=== PATIENT | female | born 1950 | race Caucasian/White ===

== ENCOUNTER 2016-10-08 11:34 | Inpatient (IN) | payer MEDICARE, OTHER ==
[2016-10-08] MEDS ORDERED: SODIUM CHLORIDE 0.9% 1,000 ML IV STA (12:10)
[2016-10-08] MEDS ORDERED: IPRATROPIUM-ALBUTEROL 3 ML NEB INHALATION STA ×2 (12:10→14:02)
--- NOTE | 2016-10-08 12:19 | ED ---
SOB HPI - General Chief Complaint: Shortness of Breath Stated Complaint: Diff breathing Time Seen by Provider: 10/08/16 11:56 Source: patient, RN notes reviewed Mode of arrival: ambulatory Limitations: no limitations - History of Present Illness Initial Comments: Patient is a 66-year-old female since emergency room for evaluation of shortness of breath. Patient states she has history of COPD. Patient does state she smokes daily. Patient states she thought she caught a "cold" about a week ago. Patient states she does have a loose cough but is unable to cough anything up. Patient states that she is having increasing shortness of breath. Patient states she is normally on 3 L of nasal cannula 24 hours a day. Patient states she's been using her nebulizers with slight relief of symptoms. Patient states she still feeling short of breath. Patient states that she's having pressure in side of her chest. Patient denies chest pain. Patient denies any fevers. Patient denies nausea or vomiting. Patient states feels dizzy but denies headache. - Related Data Home Medications Medication Instructions Recorded Confirmed ALPRAZolam [Xanax] 0.25 mg PO BID 10/08/16 10/08/16 Albuterol Inhaler [Ventolin Hfa 2 puff INHALATION RT-Q4H 10/08/16 10/08/16 Inhaler] Albuterol Nebulized [Ventolin 2.5 mg INHALATION RT-QID 10/08/16 10/08/16 Nebulized] Budesonide/Formoterol Fumarate 2 puff INHALATION RT-BID 10/08/16 10/08/16 [Symbicort 160-4.5 Mcg Inhaler] Ipratropium Nebulized [Atrovent 0.5 mg INHALATION RT-QID 10/08/16 10/08/16 Nebulized] Levothyroxine Sodium [Synthroid] 50 mcg PO DAILY 10/08/16 10/08/16 Meloxicam [Mobic] 7.5 mg PO DAILY PRN 10/08/16 10/08/16 cloNIDine HCL [Catapres] 0.1 mg PO BID 10/08/16 10/08/16 predniSONE 2.5 mg PO DAILY 10/08/16 10/08/16 Allergies Allergy/AdvReac Type Severity Reaction Status Date / Time codeine AdvReac Severe Dizziness Verified 10/08/16 12:16 Review of Systems ROS Statement: Those systems with pertinent positive or pertinent negative responses have been documented in the HPI. ROS Other: All systems not noted in ROS Statement are negative. Past Medical History Past Medical History: COPD, Hyperlipidemia, Hypertension, Thyroid Disorder Additional Past Medical History / Comment(s): arthritis History of Any Multi-Drug Resistant Organisms: None Reported Past Surgical History: Adenoidectomy, Cholecystectomy, Tonsillectomy, Tubal Ligation Past Psychological History: Anxiety Smoking Status: Current every day smoker Past Alcohol Use History: Occasional Past Drug Use History: None Reported General Exam Limitations: no limitations General appearance: alert Head exam: Present: atraumatic, normocephalic, normal inspection Eye exam: Present: normal appearance ENT exam: Present: normal exam Neck exam: Present: normal inspection Respiratory exam: Present: wheezes, accessory muscle use, decreased breath sounds Cardiovascular Exam: Present: regular rate, normal rhythm, normal heart sounds GI/Abdominal exam: Present: soft, normal bowel sounds. Absent: distended, tenderness, guarding, rebound, rigid Extremities exam: Present: normal inspection Back exam: Present: normal inspection Neurological exam: Present: alert, oriented X3, CN II-XII intact Psychiatric exam: Present: normal affect, normal mood Skin exam: Present: warm, dry, intact, normal color. Absent: rash Course Vital Signs 10/08/16 10/08/16 10/08/16 11:45 12:04 12:07 Temperature 97.9 F Pulse Rate 100 98 Pulse Rate [ 96 Pool Finisher ] Respiratory 22 20 20 Rate Blood Pressure 174/89 205/119 O2 Sat by Pulse 96 99 Oximetry 10/08/16 10/08/16 10/08/16 12:19 12:26 12:45 Temperature Pulse Rate 100 104 H 92 Pulse Rate [ Pool Finisher ] Respiratory 18 Rate Blood Pressure 194/102 O2 Sat by Pulse 98 Oximetry 10/08/16 10/08/16 10/08/16 12:53 12:59 14:31 Temperature Pulse Rate 94 79 83 Pulse Rate [ Pool Finisher ] Respiratory 20 18 18 Rate Blood Pressure 206/98 181/98 201/102 O2 Sat by Pulse 98 95 98 Oximetry 10/08/16 10/08/16 14:42 15:06 Temperature Pulse Rate 92 79 Pulse Rate [ Pool Finisher ] Respiratory 18 Rate Blood Pressure 193/97 O2 Sat by Pulse 98 Oximetry Medical Decision Making - Medical Decision Making Patient is a 66-year-old female presents to the emergency room for evaluation of shortness of breath. Patient has a history of COPD. Patient is still wheezing after 2 DuoNeb treatments and Solu-Medrol. Patient started on IV antibiotics. Patient's blood pressures also uncontrolled. Patient was given 20 mg of labetalol so far. Patient's blood pressure will lower and then increase again. Will admit patient for IV antibiotics and blood pressure stabilization. Case discussed with Dr. Sanford who discussed case with Dr. Ybarra who agreed to admit patient. - Lab Data Result diagrams: 10/08/16 12:05 10/08/16 12:05 Lab Results 10/08/16 10/08/16 10/08/16 Range/Units 12:05 12:05 12:05 WBC 10.2 (3.8-10.6) k/uL RBC 4.59 (3.80-5.40) m/uL Hgb 14.1 (11.4-16.0) gm/dL Hct 44.3 (34.0-46.0) % MCV 96.6 (80.0-100.0) fL MCH 30.8 (25.0-35.0) pg MCHC 31.9 (31.0-37.0) g/dL RDW 12.9 (11.5-15.5) % Plt Count 293 (150-450) k/uL Neutrophils % 78 % Lymphocytes % 10 % Monocytes % 7 % Eosinophils % 3 % Basophils % 1 % Neutrophils # 8.0 H (1.3-7.7) k/uL Lymphocytes # 1.0 (1.0-4.8) k/uL Monocytes # 0.7 (0-1.0) k/uL Eosinophils # 0.3 (0-0.7) k/uL Basophils # 0.1 (0-0.2) k/uL PT (9.0-12.0) sec INR (<1.1) APTT (22.0-30.0) sec D-Dimer (<0.60) mg/L FEU Sodium 134 L (137-145) mmol/L Potassium 4.4 (3.5-5.1) mmol/L Chloride 98 (98-107) mmol/L Carbon Dioxide 23 (22-30) mmol/L Anion Gap 13 mmol/L BUN 5 L (7-17) mg/dL Creatinine 0.60 (0.52-1.04) mg/dL Est GFR (MDRD) Af Amer >60 (>60 ml/min/1.73 sqM) Est GFR (MDRD) Non-Af >60 (>60 ml/min/1.73 sqM) Glucose 119 H (74-99) mg/dL Calcium 9.6 (8.4-10.2) mg/dL Total Bilirubin 0.7 (0.2-1.3) mg/dL AST 22 (14-36) U/L ALT 30 (9-52) U/L Alkaline Phosphatase 113 (38-126) U/L Total Creatine Kinase 32 (30-135) U/L CK-MB (CK-2) 2.8 H* (0.0-2.4) ng/mL CK-MB (CK-2) Rel Index 8.8 Troponin I <0.012 (0.000-0.034) ng/mL NT-Pro-B Natriuret Pep pg/mL Total Protein 7.7 (6.3-8.2) g/dL Albumin 4.3 (3.5-5.0) g/dL Influenza Type A RNA (Not Detectd) Influenza Type B (PCR) (Not Detectd) 10/08/16 10/08/16 10/08/16 Range/Units 12:05 12:05 12:31 WBC (3.8-10.6) k/uL RBC (3.80-5.40) m/uL Hgb (11.4-16.0) gm/dL Hct (34.0-46.0) % MCV (80.0-100.0) fL MCH (25.0-35.0) pg MCHC (31.0-37.0) g/dL RDW (11.5-15.5) % Plt Count (150-450) k/uL Neutrophils % % Lymphocytes % % Monocytes % % Eosinophils % % Basophils % % Neutrophils # (1.3-7.7) k/uL Lymphocytes # (1.0-4.8) k/uL Monocytes # (0-1.0) k/uL Eosinophils # (0-0.7) k/uL Basophils # (0-0.2) k/uL PT 10.0 (9.0-12.0) sec INR 1.0 (<1.1) APTT 24.0 (22.0-30.0) sec D-Dimer 0.47 (<0.60) mg/L FEU Sodium (137-145) mmol/L Potassium (3.5-5.1) mmol/L Chloride (98-107) mmol/L Carbon Dioxide (22-30) mmol/L Anion Gap mmol/L BUN (7-17) mg/dL Creatinine (0.52-1.04) mg/dL Est GFR (MDRD) Af Amer (>60 ml/min/1.73 sqM) Est GFR (MDRD) Non-Af (>60 ml/min/1.73 sqM) Glucose (74-99) mg/dL Calcium (8.4-10.2) mg/dL Total Bilirubin (0.2-1.3) mg/dL AST (14-36) U/L ALT (9-52) U/L Alkaline Phosphatase (38-126) U/L Total Creatine Kinase (30-135) U/L CK-MB (CK-2) (0.0-2.4) ng/mL CK-MB (CK-2) Rel Index Troponin I (0.000-0.034) ng/mL NT-Pro-B Natriuret Pep 198 pg/mL Total Protein (6.3-8.2) g/dL Albumin (3.5-5.0) g/dL Influenza Type A RNA Not Detected (Not Detectd) Influenza Type B (PCR) Not Detected (Not Detectd) 10/08/16 12:20 EKG: Normal sinus rhythm, ventricular rate 93 bpm, MD interval 140 ms, QRS duration 74 ms, QT/QTC 352/437 ms, no ST elevations - Radiology Data Radiology results: report reviewed, image reviewed Disposition Clinical Impression: COPD exacerbation, Hypertension Disposition: ADMITTED IP TO THIS [facility] Condition: Stable Decision Date: 10/08/16
[2016-10-08 12:40] LABS: Basophils # (A) 0.1 k/uL (0-0.2); Basophils % (A) 1 %; CHCM 33.2; Eosinophils # (A) 0.3 k/uL (0-0.7); Eosinophils % (A) 3 %; HCT 44.3 % (34.0-46.0); HDW 2.51; HGB 14.1 gm/dL (11.4-16.0); Luc # (Auto) 0.15; Luc % (Auto) 2; Lymphocytes % (A) 10 %; MCH 30.8 pg (25.0-35.0); MCHC 31.9 g/dL (31.0-37.0); MCV 96.6 fL (80.0-100.0); Mean Platelet Volume 8.2; Monocytes # (A) 0.7 k/uL (0-1.0); Monocytes % (A) 7 %; Neutrophils % (A) 78 %; RBC 4.59 m/uL (3.80-5.40); RDW 12.9 % (11.5-15.5); WBC 10.2 k/uL (3.8-10.6); WBC (Perox) 9.99
[2016-10-08 12:47] LABS: ALT 30 U/L (9-52); AST 22 U/L (14-36); Alkaline Phosphatase 113 U/L (38-126); Anion Gap 13 mmol/L; Blood Urea Nitrogen 5 mg/dL (7-17); Calcium 9.6 mg/dL (8.4-10.2); Carbon Dioxide 23 mmol/L (22-30); Chloride 98 mmol/L (98-107); Glucose 119 mg/dL (74-99); Non-African American GFR(MDRD) >60 (>60 ml/min/1.73 sqM); Potassium 4.4 mmol/L (3.5-5.1); Sodium 134 mmol/L (137-145); Total Bilirubin 0.7 mg/dL (0.2-1.3); Total Protein 7.7 g/dL (6.3-8.2)
[2016-10-08] MEDS ORDERED: LABETALOL SYRINGE 5 MG/ML IVP STA ×2 (12:49→14:33)
[2016-10-08 13:11] LABS: Creatine Kinase 32 U/L (30-135)
[2016-10-08 13:24] LABS: Troponin I <0.012 ng/mL (0.000-0.034)
[2016-10-08 13:37] LABS: Creatine Kinase MB 2.8 ng/mL (0.0-2.4)
[2016-10-08] MEDS ORDERED: LEVOFLOXACIN 500MG-D5W PMX 500 MG in DEXTROSE/WATER 1 100ML.BAG IVPB STA (14:02)
[2016-10-08] MEDS ORDERED: methylPREDNISolone SOD SUCCI 125 MG/2 ML VIAL IV STA (14:02)
[2016-10-08] MEDS ORDERED: NICOTINE 21MG/24HR PATCH TRANSDERM STA (15:11)
[2016-10-08] MEDS ORDERED: IBUPROFEN 400 MG TAB PO PRN (15:15)
[2016-10-08] MEDS ORDERED: NALOXONE 0.4 MG/ML 1 ML VIAL IV PRN (15:15)
[2016-10-08] MEDS ORDERED: MELOXICAM 7.5 MG TAB PO PRN (15:20)
[2016-10-08] MEDS: SODIUM CHLORIDE 0.9% 1,000 ML IV SCH (15:40)
[2016-10-08] MEDS ORDERED: ALBUTEROL INHALER 60 PUFF/8 GM INHALER INHALATION SCH (16:00)
[2016-10-08] MEDS ORDERED: IPRATROPIUM 0.5 MG/2.5 ML NEBU INHALATION SCH (16:00)
[2016-10-08] MEDS: ALPRAZolam 0.25 MG TAB PO SCH (17:24)
[2016-10-08] MEDS: IPRATROPIUM-ALBUTEROL 3 ML NEB INHALATION SCH ×2 (17:43→21:28)
[2016-10-08] MEDS: cloNIDine HCL 0.1 MG TAB PO SCH (17:48)
[2016-10-08 20:28] LABS: Glucose,Whole Blood 141 mg/dL (75-99)
[2016-10-08] MEDS: SYMBICORT 160-4.5 MCG INHALER INHALATION SCH (21:28)
[2016-10-08 23:27] LABS: Glucose,Whole Blood 220 mg/dL (75-99)
[2016-10-09] MEDS: INSULIN LISPRO (humaLOG) 300 UNIT/3 ML VIAL SQ SCH ×5 (00:13→21:02)
[2016-10-09 05:59] LABS: Glucose,Whole Blood 135 mg/dL (75-99)
[2016-10-09] MEDS: LEVOTHYROXINE 50 MCG TAB PO SCH (06:22)
[2016-10-09 06:37] LABS: Basophils # (A) 0.1 k/uL (0-0.2); Basophils % (A) 2 %; CH 31.6; CHCM 32.6; Eosinophils % (A) 0 %; HCT 41.3 % (34.0-46.0); HDW 2.49; HGB 13.5 gm/dL (11.4-16.0); Luc # (Auto) 0.06; Luc % (Auto) 1; Lymphocytes # (A) 0.5 k/uL (1.0-4.8); Lymphocytes % (A) 8 %; MCH 31.8 pg (25.0-35.0); MCHC 32.8 g/dL (31.0-37.0); MCV 97.2 fL (80.0-100.0); Monocytes # (A) 0.2 k/uL (0-1.0); Monocytes % (A) 4 %; Neutrophils % (A) 85 %; RBC 4.25 m/uL (3.80-5.40); RDW 12.8 % (11.5-15.5); WBC 5.9 k/uL (3.8-10.6); WBC (Perox) 5.92
[2016-10-09 06:50] LABS: ALT 32 U/L (9-52); AST 16 U/L (14-36); Alkaline Phosphatase 92 U/L (38-126); Anion Gap 10 mmol/L; Blood Urea Nitrogen 8 mg/dL (7-17); Calcium 9.6 mg/dL (8.4-10.2); Carbon Dioxide 24 mmol/L (22-30); Chloride 102 mmol/L (98-107); Glucose 138 mg/dL (74-99); Non-African American GFR(MDRD) >60 (>60 ml/min/1.73 sqM); Potassium 4.5 mmol/L (3.5-5.1); Sodium 136 mmol/L (137-145); Total Bilirubin 0.4 mg/dL (0.2-1.3)
[2016-10-09] MEDS: cloNIDine HCL 0.1 MG TAB PO SCH (07:48)
[2016-10-09] MEDS: SODIUM CHLORIDE 0.9% 1,000 ML IV SCH (07:48)
[2016-10-09] MEDS: ALPRAZolam 0.25 MG TAB PO SCH ×2 (07:53→19:59)
[2016-10-09] MEDS ORDERED: methylPREDNISolone SOD SUCCI 125 MG/2 ML VIAL IV SCH (09:00)
[2016-10-09] MEDS: IPRATROPIUM-ALBUTEROL 3 ML NEB INHALATION SCH ×4 (09:03→19:07)
[2016-10-09] MEDS: SYMBICORT 160-4.5 MCG INHALER INHALATION SCH ×2 (09:03→19:07)
[2016-10-09 11:58] LABS: Glucose,Whole Blood 127 mg/dL (75-99)
--- NOTE | 2016-10-09 12:34 | XR ---
EXAMINATION TYPE: XR chest 2V DATE OF EXAM: 10/09/2016 12:27 PM COMPARISON: 05/26/2016, 10/08/2016 INDICATION: Pneumonia bilateral lung infection low blood pressure history of COPD TECHNIQUE: Frontal and lateral views of the chest are obtained. FINDINGS: The heart size is normal. The pulmonary vasculature is normal. There is some chronic scarring in the right apex. Flattening of the diaphragms compatible COPD. IMPRESSION: 1. Scarring at the right apex. This could be some mild atelectasis. 2. COPD with hyperinflation
--- NOTE | 2016-10-09 13:46 | P.CNPUL ---
History of Present Illness Consult date: 10/09/16 Requesting physician: Fan Rajput Reason for consult: COPD Chief complaint: Shortness of breath History of present illness: This is a 66-year-old female with history of severe end-stage COPD, patient is O2 dependent, but not prednisone dependent. Continues to smoke on the average of one pack per day, admitted through the emergency room with a few days' history of increased shortness of breath cough and wheezing. Patient stated to me that she may have caught a cold about a week ago, and from then on she went on to develop this nonproductive cough, shortness of breath, wheezing. No chest pain no fever no chills no hemoptysis. Patient was evaluated in the ER, chest x-ray showed no evidence of pneumonia, admitted and this consult was initiated. Patient denies any vomiting no nausea, no abdominal pain, no chest pain, no hemoptysis, no melena no hematemesis. No dysuria frequency or urgency. No headaches no dizziness no blurred vision. Review of Systems 14 point review of systems were obtained, please refer to pertinent positives and negatives in HPI Past Medical History Past Medical History: COPD, Hyperlipidemia, Hypertension, Thyroid Disorder Additional Past Medical History / Comment(s): arthritis History of Any Multi-Drug Resistant Organisms: None Reported Past Surgical History: Adenoidectomy, Cholecystectomy, Tonsillectomy, Tubal Ligation Past Psychological History: Anxiety Smoking Status: Current every day smoker Past Alcohol Use History: Occasional Past Drug Use History: None Reported Medications and Allergies Home Medications Medication Instructions Recorded Confirmed Type ALPRAZolam [Xanax] 0.25 mg PO BID 10/08/16 10/08/16 History Albuterol Inhaler [Ventolin Hfa 2 puff INHALATION RT-Q4H 10/08/16 10/08/16 History Inhaler] Albuterol Nebulized [Ventolin 2.5 mg INHALATION RT-QID 10/08/16 10/08/16 History Nebulized] Budesonide/Formoterol Fumarate 2 puff INHALATION RT-BID 10/08/16 10/08/16 History [Symbicort 160-4.5 Mcg Inhaler] Ipratropium Nebulized [Atrovent 0.5 mg INHALATION RT-QID 10/08/16 10/08/16 History Nebulized] Levothyroxine Sodium [Synthroid] 50 mcg PO DAILY 10/08/16 10/08/16 History Meloxicam [Mobic] 7.5 mg PO DAILY PRN 10/08/16 10/08/16 History cloNIDine HCL [Catapres] 0.1 mg PO BID 10/08/16 10/08/16 History predniSONE 2.5 mg PO DAILY 10/08/16 10/08/16 History Allergies Allergy/AdvReac Type Severity Reaction Status Date / Time codeine AdvReac Severe Dizziness Verified 10/08/16 12:16 Physical Exam Vitals: Vital Signs Temp Pulse Pulse Pulse Resp BP BP 10/09/16 13:20 83 10/09/16 11:14 97.0 F L 93 18 156/88 10/09/16 09:15 87 10/09/16 09:03 80 10/09/16 07:50 97.1 F L 90 18 189/84 10/09/16 04:00 97.2 F L 81 20 167/75 10/09/16 00:00 97.3 F L 84 20 161/72 10/08/16 21:32 80 10/08/16 21:21 80 10/08/16 20:00 97 F L 96 96 20 144/66 10/08/16 19:04 94 20 10/08/16 17:36 110 H 23 10/08/16 16:32 96.4 F L 94 22 10/08/16 15:53 89 18 183/89 BP Pulse Ox 10/09/16 13:20 10/09/16 11:14 96 10/09/16 09:15 10/09/16 09:03 10/09/16 07:50 95 10/09/16 04:00 94 L 10/09/16 00:00 95 10/08/16 21:32 10/08/16 21:21 10/08/16 20:00 94 L 10/08/16 19:04 133/63 96 10/08/16 17:36 193/88 94 L 10/08/16 16:32 210/100 94 L 10/08/16 15:53 97 Intake and Output 10/08/16 10/09/16 10/09/16 22:59 06:59 14:59 Intake Total 100 900 180 Output Total 821 915 7433 Balance -600 -50 -820 Intake: Intake, IV Titration 900 Amount Sodium Chloride 0.9% 1, 900 000 ml @ 50 mls/hr IV . Q20H [facility] Rx#:[id number] Oral 100 180 Output: Urine [phone] Other: Voiding Method Bedside Commode Bedside Commode Bedside Commode # Voids 1 1 Weight 52.617 kg 53.2 kg Physical Exam: Revealed a 66-year-old female in mild respiratory distress. HEENT:[Neck is supple.] [No neck masses.] [No thyromegaly.] [No JVD.] Chest: [Diffuse rhonchi and wheezes bilaterally.] Cardiac Exam: [Normal S1 and S2, no S3 gallop, no murmur.] Abdomen: [Soft, nontender, no megaly, no rebound, no guarding, normal bowel sounds.] Extremities: [No clubbing, no edema, no cyanosis.] Neurological Exam: [No focal neurologic deficit.] Results - Laboratory Findings CBC and BMP: 10/09/16 05:42 10/09/16 05:40 PT/INR, D-dimer PT 10.0 sec (9.0-12.0) 10/08/16 12:05 INR 1.0 (<1.1) 10/08/16 12:05 D-Dimer 0.47 mg/L FEU (<0.60) 10/08/16 12:05 Abnormal lab findings: Abnormal Labs 10/08/16 10/08/16 10/09/16 20:26 23:20 05:40 Lymphocytes # Sodium 136 L Glucose 138 H POC Glucose (mg/dL) 141 H 220 H 10/09/16 10/09/16 10/09/16 05:42 05:42 11:50 Lymphocytes # 0.5 L Sodium Glucose POC Glucose (mg/dL) 135 H 127 H - Diagnostic Findings Chest x-ray: image reviewed (No evidence of pneumonia) Assessment and Plan Plan: Impression: 1 acute exacerbation of COPD. 2 chronic hypoxic respiratory failure secondary to COPD 3 chronic nicotine addiction and tobacco dependence syndrome. 4 multiple comorbidities including history of hyperlipidemia, hypertension, and history of hypothyroidism, history of degenerative joint disease. Recommendation: Patient was counseled regarding smoking cessation, she is current on her immunization, and reviewing the list of the medications, she seems to be on proper bronchodilators and proper antibiotics empirically. However the dose of Solu-Medrol was changed to 60 mg IV push every 6 hours instead of 80 mg daily. Continue albuterol and Atrovent updrafts, continue Pulmicort, expect discharge planning in the next 48 hours. Time with Patient: Greater than 30
[2016-10-09] MEDS: FAMOTIDINE 20 MG TAB PO SCH ×2 (13:54→19:59)
[2016-10-09] MEDS: CARVEDILOL 12.5 MG TAB PO SCH ×2 (13:54→17:56)
[2016-10-09 14:32] VITALS: BMI 22.8
[2016-10-09] MEDS ORDERED: LEVOFLOXACIN 500MG-D5W PMX 500 MG in DEXTROSE/WATER 1 100ML.BAG IVPB SCH (16:00)
--- NOTE | 2016-10-09 16:32 | HP ---
DATE OF ADMISSION: Patient is a 66-year-old with end-stage ( ) COPD, is on 3 L of oxygen at home ( ) continues to smoke 1 pack per day; came in with complaints of shortness of breath which started about a week ago; much worse in the last 2 or 3 days. Is unable to cough up anything. Patient denied any fever, chills at home. Chest x-ray apparently showed evidence of pneumonia as per ER physician ( ) I reordered the chest x-ray then because of that reason. Patient appears to have had ( ) symptoms about a week ago which precipitated her COPD. Patient appears to have advanced COPD. Patient denied any nausea, vomiting. Patient denied any hemoptysis, hematemesis, melena, dysuria. Clinically patient does not have any evidence of pneumonia. I will repeat the chest x-ray. REVIEW OF SYSTEMS: CONSTITUTIONAL: No fever, no malaise, no fatigue. HEENT: No recent visual problems or hearing problems. Denied any sore throat. CARDIOVASCULAR: No chest pain, orthopnea, PND, no palpitations, no syncope. PULMONARY: As described in HPI. Patient denied any orthopnea, PND. GASTROINTESTINAL: No diarrhea, no nausea, no vomiting, no abdominal pain. Normoactive bowel sounds. NEUROLOGICAL: No headaches, no weakness, no numbness. HEMATOLOGICAL: Denies any bleeding or petechiae. GENITOURINARY: Denies any burning micturition, frequency, or urgency. MUSCULOSKELETAL/RHEUMATOLOGICAL: Denies any joint pain, swelling, or any muscle pain. ENDOCRINE: Denies any polyuria or polydipsia. The rest of the 14 point review of systems is negative. Past medical history is significant for: 1. COPD. 2. Hyperlipidemia. 3. Hypertension. 4. Hypothyroidism. 5. Adenoidectomy. 6. Cholecystectomy. 7. Tonsillectomy. 8. Tubal ligation surgery. 9. ( ) disorder. Patient continues to smoke a pack per day. Denied any alcohol abuse or any drug abuse. Home medications include: 1. Alprazolam. 2. Albuterol. 3. Budesonide/formoterol. 4. Ipratropium. 5. Levothyroxine. 6. Meloxicam. 7. Clonidine. 8. Prednisone. ALLERGIES: CODEINE. PHYSICAL EXAMINATION: VITAL SIGNS: Temperature 97.0, pulse of 83, respiratory rate of 18. Blood pressure is 156/88. Patient appeared to have elevated blood pressures in ER. Patient is on clonidine, which is not an appropriate medication, which I am switching to Coreg, and patient can have ( ) because of that, for which we will watch her. GENERAL: Very thin built female, not in apparently respiratory distress. HEENT: Pupils are round and equally reacting to light. EOMI. No scleral icterus. No conjunctival pallor. Normocephalic, atraumatic. No pharyngeal erythema. No thyromegaly. CARDIOVASCULAR: S1 and S2 present. No murmurs, rubs, or gallops. PULMONARY: Expiratory wheezing was appreciated. Very minimal air entry into bilateral lung silva. No crackles were appreciated. ABDOMEN: Soft, nontender, nondistended, normoactive bowel sounds. No palpable organomegaly. MUSCULOSKELETAL: No joint swelling or deformity. EXTREMITIES: No cyanosis, clubbing, or pedal edema. NEUROLOGICAL: Gross neurological examination did not reveal any focal deficits. SKIN: No rashes. FAMILY HISTORY: Denied any family history of hypertension, diabetes mellitus. LABORATORY DATA: CBC, CMP: no significant abnormality. X-RAY: I cannot see the images of the x-ray. Reordered the x-ray, as mentioned above, although clinically the patient does not appear to have any pneumonia. Patient does not have any leukocytosis. ASSESSMENT AND PLAN: 1. Acute on chronic hypercapnic respiratory failure secondary to chronic obstructive pulmonary disease exacerbation. Continue with systemic steroids, inhalation treatments, antibiotics. Chest x-ray does not show any pneumonia, although I ( ) antibiotics. 2. Accelerated hypertension. Clonidine will be discontinued and patient will be started on Coreg. Patient does not have any end-organ damage. I would not worry about the blood pressures. Most of the readings are within appropriate measurements. 3. Continued nicotine abuse. Counseling was provided regarding that. 4. Hypothyroidism. 5. Hyperlipidemia, for which patient will be continued on home medications. Patient probably can be discharged tomorrow. Will monitor her vitals and blood pressures in the meantime.
[2016-10-09 17:40] LABS: Glucose,Whole Blood 135 mg/dL (75-99)
[2016-10-09] MEDS: methylPREDNISolone SOD SUCCI 125 MG/2 ML VIAL IV SCH ×2 (17:56→23:45)
[2016-10-09 20:53] LABS: Glucose,Whole Blood 150 mg/dL (75-99)
[2016-10-10] MEDS ORDERED: cloNIDine HCL 0.1 MG TAB PO STA (00:12)
[2016-10-10] MEDS: SODIUM CHLORIDE 0.9% 1,000 ML IV SCH (06:03)
[2016-10-10] MEDS: methylPREDNISolone SOD SUCCI 125 MG/2 ML VIAL IV SCH ×4 (06:03→23:26)
[2016-10-10] MEDS: LEVOTHYROXINE 50 MCG TAB PO SCH (06:27)
[2016-10-10 07:01] LABS: Glucose,Whole Blood 133 mg/dL (75-99)
[2016-10-10] MEDS: NICOTINE 21MG/24HR PATCH TRANSDERM SCH (08:09)
[2016-10-10] MEDS: CARVEDILOL 12.5 MG TAB PO SCH ×2 (08:09→18:01)
[2016-10-10] MEDS: ALPRAZolam 0.25 MG TAB PO SCH ×2 (08:09→21:48)
[2016-10-10] MEDS: INSULIN LISPRO (humaLOG) 300 UNIT/3 ML VIAL SQ SCH ×4 (08:09→21:48)
[2016-10-10] MEDS: IPRATROPIUM-ALBUTEROL 3 ML NEB INHALATION SCH ×4 (08:10→20:26)
[2016-10-10] MEDS: SYMBICORT 160-4.5 MCG INHALER INHALATION SCH ×2 (08:10→20:26)
--- NOTE | 2016-10-10 11:41 | XR ---
EXAMINATION TYPE: XR chest 2V DATE OF EXAM: 10/08/2016 12:48 PM COMPARISON: 05/26/2016 HISTORY: Short of breath and COPD TECHNIQUE: Frontal and lateral views of the chest are obtained. FINDINGS: Heart is normal. Lungs are clear of consolidation. There is linear density in the right upper lobe. There are no hilar masses. There is no heart failure. There is mild pulmonary hyperinf lation. Bony thorax appears intact. IMPRESSION: There is some right upper lobe atelectasis that is new compared to last exam. COPD. No heart failure.
[2016-10-10 12:34] LABS: Glucose,Whole Blood 122 mg/dL (75-99)
--- NOTE | 2016-10-10 13:07 | P.PN ---
Subjective This is a very pleasant 66-year-old female with history of severe end-stage COPD , patient is O2 dependent, but not prednisone dependent. Continues to smoke on the average of one pack per day, admitted through the emergency room with a few days' history of increased shortness of breath cough and wheezing. Patient stated that she may have caught a cold about a week ago, and from then on she went on to develop this nonproductive cough, shortness of breath, wheezing. No chest pain no fever no chills no hemoptysis. Patient was evaluated in the ER, chest x-ray showed no evidence of pneumonia and she's been treated for an acute exacerbation of her COPD. She is seen again today 10/10/2016 in follow-up. She is awake and alert in no acute distress. She states she is breathing easier today as compared to yesterday. No worsening shortness of breath, cough or congestion. She is anxious to go home. Objective - Vital Signs Vital signs: Vital Signs Temp 97.1 F L 10/10/16 07:00 Pulse 88 10/10/16 11:30 Resp 20 10/10/16 07:00 BP 198/91 10/10/16 07:00 Pulse Ox 91 L 10/10/16 07:00 Intake & Output 10/09/16 10/10/16 10/10/16 18:59 06:59 18:59 Intake Total 180 200 Output Total 1000 Balance -820 200 Weight 53.2 kg 53 kg Intake: Oral 180 200 Output: Urine 1000 Other: Voiding Method Bedside Commode # Voids 2 # Bowel Movements 0 - Exam GENERAL EXAM: Alert, active, comfortable in no apparent distress. HEAD: Normocephalic. EYES: Normal reaction of pupils, equal size. NOSE: Clear with pink turbinates. THROAT: No erythema or exudates. NECK: No masses, no JVD. CHEST: No chest wall deformity. LUNGS: Equal air entry with end expiratory wheeze. Diminished throughout. CVS: S1 and S2 normal with no audible murmurs, regular rhythm. ABDOMEN: No hepatosplenomegaly, normal bowel sounds, no guarding or rigidity. SPINE: No scoliosis or deformity SKIN: No rashes CENTRAL NERVOUS SYSTEM: No focal deficits, tone is normal in all 4 extremities. Extremities: There is no peripheral edema. No clubbing, no cyanosis. Peripheral pulses are intact. - Labs CBC & Chem 7: 10/09/16 05:42 10/09/16 05:40 Labs: Abnormal Lab Results - Last 24 Hours (Table) 10/09/16 10/09/16 10/10/16 Range/Units 17:37 20:51 07:00 POC Glucose (mg/dL) 135 H 150 H 133 H (75-99) mg/dL 10/10/16 Range/Units 12:33 POC Glucose (mg/dL) 122 H (75-99) mg/dL Assessment and Plan Plan: Impression: 1 Acute exacerbation of severe oxygen dependent chronic obstructive pulmonary disease. 2 Acute on chronic hypoxic respiratory failure secondary to above 3 Chronic and ongoing nicotine addiction and tobacco dependence syndrome. 4 Hyperlipidemia. 5 Hypertension. 6 Hypothyroidism. 7 Degenerative joint disease. Plan: The patient was seen and evaluated by Dr. Min. Her chest x-ray and labs were reviewed. She has been treated for her COPD exacerbation with IV Solu- Medrol, bronchodilators, Pulmicort and empiric antibiotics. She is again educated regarding the importance of complete smoking cessation. She is improved today and could possibly be discharged home either later today or tomorrow. She'll have a follow-up appointment in our office in 1 week's time. She is encouraged to call sooner with any recurrence of symptoms or other questions or concerns.
[2016-10-10] MEDS: FAMOTIDINE 20 MG TAB PO SCH ×2 (13:33→21:48)
[2016-10-10 16:43] LABS: Glucose,Whole Blood 118 mg/dL (75-99)
[2016-10-10] MEDS: LEVOFLOXACIN 500 MG TAB PO SCH (18:00)
[2016-10-10 20:45] LABS: Glucose,Whole Blood 119 mg/dL (75-99)
[2016-10-11] MEDS: SODIUM CHLORIDE 0.9% 1,000 ML IV SCH (05:55)
[2016-10-11] MEDS: methylPREDNISolone SOD SUCCI 125 MG/2 ML VIAL IV SCH (05:57)
[2016-10-11] MEDS: LEVOTHYROXINE 50 MCG TAB PO SCH (06:34)
[2016-10-11 07:41] VITALS: BP 189/98; RESP 19; TEMP 97.7
[2016-10-11 07:46] LABS: Glucose,Whole Blood 134 mg/dL (75-99)
[2016-10-11] MEDS: INSULIN LISPRO (humaLOG) 300 UNIT/3 ML VIAL SQ SCH ×2 (08:00→13:11)
[2016-10-11] MEDS: CARVEDILOL 12.5 MG TAB PO SCH (08:15)
[2016-10-11] MEDS: ALPRAZolam 0.25 MG TAB PO SCH (08:33)
[2016-10-11] MEDS: NICOTINE 21MG/24HR PATCH TRANSDERM SCH (08:33)
[2016-10-11] MEDS: FAMOTIDINE 20 MG TAB PO SCH (08:34)
[2016-10-11] MEDS: SYMBICORT 160-4.5 MCG INHALER INHALATION SCH (09:51)
[2016-10-11] MEDS: IPRATROPIUM-ALBUTEROL 3 ML NEB INHALATION SCH ×2 (09:52→12:34)
--- NOTE | 2016-10-11 11:36 | P.PN ---
Subjective This is a very pleasant 66-year-old female with history of severe end-stage COPD , patient is O2 dependent, but not prednisone dependent. Continues to smoke on the average of one pack per day, admitted through the emergency room with a few days' history of increased shortness of breath cough and wheezing. Patient stated that she may have caught a cold about a week ago, and from then on she went on to develop this nonproductive cough, shortness of breath, wheezing. No chest pain no fever no chills no hemoptysis. Patient was evaluated in the ER, chest x-ray showed no evidence of pneumonia and she's been treated for an acute exacerbation of her COPD. She is seen again today 10/11/2016 in follow-up. She is awake and alert in no acute distress. She states she slept well last night. She's been up ambulating in the room. She is maintaining O2 saturations in the mid 90s on room air at rest. She is afebrile. She states she is breathing easier today as compared to yesterday. No worsening shortness of breath, cough or congestion. She is anxious to go home. Objective - Vital Signs Vital signs: Vital Signs Temp 97.7 F 10/11/16 07:00 Pulse 86 10/11/16 07:00 Resp 19 10/11/16 07:00 BP 189/98 10/11/16 07:00 Pulse Ox 96 10/11/16 07:00 Intake & Output 10/10/16 10/11/16 10/11/16 18:59 06:59 18:59 Intake Total 400 650 Balance 400 650 Weight 53 kg Intake: IV 400 Sodium Chloride 0.9% 1, 400 000 ml @ 50 mls/hr IV . Q20H [facility] Rx#:[id number] Oral 650 Other: # Voids 2 3 - Exam GENERAL EXAM: Alert, active, comfortable in no apparent distress. HEAD: Normocephalic. EYES: Normal reaction of pupils, equal size. NOSE: Clear with pink turbinates. THROAT: No erythema or exudates. NECK: No masses, no JVD. CHEST: No chest wall deformity. LUNGS: Equal air entry with end expiratory wheeze. Diminished throughout. CVS: S1 and S2 normal with no audible murmurs, regular rhythm. ABDOMEN: No hepatosplenomegaly, normal bowel sounds, no guarding or rigidity. SPINE: No scoliosis or deformity SKIN: No rashes CENTRAL NERVOUS SYSTEM: No focal deficits, tone is normal in all 4 extremities. Extremities: There is no peripheral edema. No clubbing, no cyanosis. Peripheral pulses are intact. - Labs CBC & Chem 7: 10/09/16 05:42 10/09/16 05:40 Labs: Abnormal Lab Results - Last 24 Hours (Table) 10/10/16 10/10/16 10/10/16 Range/Units 12:33 16:42 20:42 POC Glucose (mg/dL) 122 H 118 H 119 H (75-99) mg/dL 10/11/16 Range/Units 07:14 POC Glucose (mg/dL) 134 H (75-99) mg/dL Assessment and Plan Plan: Impression: #1 Acute exacerbation of severe oxygen dependent chronic obstructive pulmonary disease. #2 Acute on chronic hypoxic respiratory failure secondary to above. #3 Chronic and ongoing nicotine addiction and tobacco dependence syndrome. #4 Hyperlipidemia. #5 Hypertension. #6 Hypothyroidism. #7 Degenerative joint disease. Plan: The patient was seen and evaluated by Dr. Min. She has been treated for her COPD exacerbation with IV Solu-Medrol, bronchodilators, Pulmicort and empiric antibiotics. We will convert her oral prednisone taper. She is again educated regarding the importance of complete smoking cessation. She is improved today and could possibly be discharged home either later today or tomorrow. She'll have a follow-up appointment in our office in 1 week's time. She is encouraged to call sooner with any recurrence of symptoms or other questions or concerns.
[2016-10-11 12:37] VITALS: PULSE 80
[2016-10-11 12:49] LABS: Glucose,Whole Blood 111 mg/dL (75-99)
[2016-10-11] MEDS: LEVOFLOXACIN 500 MG TAB PO SCH (13:12)
[2016-10-12] MEDS ORDERED: predniSONE 20 MG TAB PO SCH (09:00)
--- NOTE | 2016-10-12 09:36 | DS ---
DATE OF ADMISSION: 10/08/2016 DATE OF DISCHARGE: 10/11/2016 Patient is a 66-year-old, came in with COPD exacerbation. Patient has significant clinical improvement and patient is at her baseline. Patient still has decreased air entry into bilateral lung silva, but which is her baseline and extensive counseling regarding the nicotine us was provided and patient will be discharged today. Patient was seen and examined on the day of discharge. Vitals are stable. PHYSICAL EXAMINATION: GENERAL: The patient is alert and oriented x3, not in any acute distress. Well developed, well nourished. HEENT: Pupils are round and equally reacting to light. EOMI. No scleral icterus. No conjunctival pallor. Normocephalic, atraumatic. No pharyngeal erythema. No thyromegaly. CARDIOVASCULAR: S1 and S2 present. No murmurs, rubs, or gallops. PULMONARY: Chest is clear to auscultation, no wheezing or crackles. ABDOMEN: Soft, nontender, nondistended, normoactive bowel sounds. No palpable organomegaly. MUSCULOSKELETAL: No joint swelling or deformity. EXTREMITIES: No cyanosis, clubbing, or pedal edema. NEUROLOGICAL: Gross neurological examination did not reveal any focal deficits. SKIN: No rashes. FINAL DIAGNOSES: 1. Acute on chronic hypercapnic respiratory failure secondary to chronic obstructive pulmonary disease exacerbation. 2. Accelerated hypertension. Patient was on Klonopin, which was discontinued. Patient will be discharged on Coreg and lisinopril and continued nicotine use counseling was provided as mentioned above. 3. Hypothyroidism. 4. Tracheobronchitis. 5. Hyperlipidemia. Discharge medications include: 1. Coreg 12.5 p.o. b.i.d. 2. Levofloxacin 500 p.o. daily. 3. Lisinopril 10 mg oral daily. 4. Paroxetine 10 mg orally daily. 5. Weaning dose of prednisone. Patient will continue her Budesonide, formoterol, albuterol inhalational, Xanax as needed, levothyroxine at same doses, meloxicam as needed, prednisone 2.5 p.o. will be discontinued.
== END 2016-10-11 14:52 | disposition home or self-care (01) | DRG 190 ==
LOC: SUPCPDRO 11:34 → EC 11:34 → 6SEL 15:15 → 4MS4W 10-09 14:53
PROVIDERS: ADMIT Internal Medicine; ATTEND Internal Medicine
DX: J44.0 Chronic obstructive pulmonary disease with (acute) lower respiratory infection (principal); J96.21 Acute and chronic respiratory failure with hypoxia; Z99.81 Dependence on supplemental oxygen; J96.22 Acute and chronic respiratory failure with hypercapnia; E03.9 Hypothyroidism, unspecified; J40 Bronchitis, not specified as acute or chronic; J44.1 Chronic obstructive pulmonary disease with (acute) exacerbation; E78.5 Hyperlipidemia, unspecified; F17.200 Nicotine dependence, unspecified, uncomplicated; Z79.52 Long term (current) use of systemic steroids; Z79.899 Other long term (current) drug therapy; M19.90 Unspecified osteoarthritis, unspecified site; I10 Essential (primary) hypertension
CPT/HCPCS: 36415; 71020; 80053; 82550; 82553; 83880; 84484; 85025; 85379; 85610; 85730; 87040; 87502; 93005; 94640; 96361; 96365; 96375; 99285

== ENCOUNTER 2017-02-10 12:40 | Observation (INO) | payer MEDICARE, OTHER ==
[2017-02-10] MEDS ORDERED: ALBUTEROL NEBULIZED 2.5 MG/3 ML INHALATION STA (13:00)
[2017-02-10] MEDS ORDERED: methylPREDNISolone SOD SUCCI 125 MG/2 ML VIAL IV STA (13:00)
--- NOTE | 2017-02-10 13:33 | ED ---
General Adult HPI - General Chief complaint: Shortness of Breath Stated complaint: COPD/MAKENZIE Source: patient Mode of arrival: wheelchair Limitations: no limitations - History of Present Illness Initial comments: This is a 66-year-old female who presents to the emergency department with a past medical history COPD. Patient comes in stating she's had difficulty breathing over the last couple days and has gotten worse over the last couple of days. Patient denies any recent fever chills or cough. Patient denies any chest pain or palpitations. Patient denies any abdominal pain. Patient denies nausea vomiting or diarrhea. Patient denies any headache patient denies lightheadedness dizziness or near syncopal episode. Patient denies any numbness weakness. - Related Data Home Medications Medication Instructions Recorded Confirmed ALPRAZolam [Xanax] 0.25 mg PO BID 10/08/16 02/10/17 Albuterol Inhaler [Ventolin Hfa 2 puff INHALATION RT-Q4H 10/08/16 02/10/17 Inhaler] Albuterol Nebulized [Ventolin 2.5 mg INHALATION RT-QID 10/08/16 02/10/17 Nebulized] Budesonide/Formoterol Fumarate 2 puff INHALATION RT-BID 10/08/16 02/10/17 [Symbicort 160-4.5 Mcg Inhaler] Ipratropium Nebulized [Atrovent 0.5 mg INHALATION RT-QID 10/08/16 02/10/17 Nebulized] Levothyroxine Sodium [Synthroid] 50 mcg PO DAILY 10/08/16 02/10/17 Meloxicam [Mobic] 7.5 mg PO DAILY PRN 10/08/16 02/10/17 predniSONE 2.5 mg PO DAILY 02/10/17 02/10/17 Previous Rx's Medication Instructions Recorded Carvedilol [Coreg] 12.5 mg PO BID #60 tablet 10/11/16 Lisinopril [Prinivil] 10 mg PO DAILY #30 tab 10/11/16 PARoxetine HCL [Paxil] 10 mg PO DAILY #30 tab 10/11/16 Allergies Allergy/AdvReac Type Severity Reaction Status Date / Time codeine AdvReac Severe Dizziness Verified 02/10/17 14:20 Review of Systems ROS Statement: Those systems with pertinent positive or pertinent negative responses have been documented in the HPI. ROS Other: All systems not noted in ROS Statement are negative. Past Medical History Past Medical History: COPD, Hyperlipidemia, Hypertension, Thyroid Disorder Additional Past Medical History / Comment(s): arthritis History of Any Multi-Drug Resistant Organisms: None Reported Past Surgical History: Adenoidectomy, Cholecystectomy, Tonsillectomy, Tubal Ligation Past Psychological History: Anxiety Smoking Status: Current every day smoker Past Alcohol Use History: Occasional Past Drug Use History: None Reported General Exam - General Exam Comments Initial Comments: GENERAL: Patient is well-developed and well-nourished. Patient is nontoxic and well- hydrated and is in moderate distress. ENT: Neck is soft and supple. No significant lymphadenopathy is noted. Oropharynx is clear. Moist mucous membranes. Neck has full range of motion without eliciting any pain. EYES: The sclera were anicteric and conjunctiva were pink and moist. Extraocular movements were intact and pupils were equal round and reactive to light. Eyelids were unremarkable. PULMONARY: Diffuse expiratory wheezing CARDIOVASCULAR: There is a regular rate and rhythm without any murmurs gallops or rubs. ABDOMEN: Soft and nontender with normal bowel sounds. No palpable organomegaly was noted. There is no palpable pulsatile mass. SKIN: Skin is clear with no lesions or rashes and otherwise unremarkable. NEUROLOGIC: Patient is alert and oriented x3. Cranial nerves II through XII are grossly intact. Motor and sensory are also intact. Normal speech, volume and content. Symmetrical smile. MUSCULOSKELETAL: Normal extremities with adequate strength and full range of motion. No lower extremity swelling or edema. No calf tenderness. LYMPHATICS: No significant lymphadenopathy is noted PSYCHIATRIC: Normal psychiatric evaluation. Normal interpersonal interactions appears functionally intact in deals appropriately with others. No signs of depression. No signs of anxiety. Limitations: no limitations Course Vital Signs 02/10/17 02/10/17 02/10/17 12:44 13:21 13:26 Temperature 98.1 F Pulse Rate 76 84 62 Respiratory 26 H 24 Rate Blood Pressure 128/69 152/71 O2 Sat by Pulse 94 L 99 Oximetry 02/10/17 02/10/17 02/10/17 13:45 13:51 14:14 Temperature Pulse Rate 66 87 Respiratory 20 20 Rate Blood Pressure 131/74 O2 Sat by Pulse 96 Oximetry Medical Decision Making - Medical Decision Making EKG shows a normal sinus rhythm at 62 bpm ME interval is 152 QRS is 70 QT interval is 412 QTC is 418. Patient's EKG shows no ST segment elevation or depression or T wave abnormalities are noted. Chest x-ray shows no acute abnormality. Patient got 3 consecutive breathing treatments but she still continued to wheeze and felt better but not back to her baseline. I spoke with Dr. Mccormack she agreed to admit the patient admitted the patient I wrote admitting orders I continued albuterol treatments and steroids on the floor. - Lab Data Result diagrams: 02/10/17 13:10 02/10/17 13:35 Lab Results 02/10/17 02/10/17 02/10/17 Range/Units 13:10 13:10 13:35 WBC 5.6 (3.8-10.6) k/uL RBC 5.48 H (3.80-5.40) m/uL Hgb 17.1 H (11.4-16.0) gm/dL Hct 52.3 H (34.0-46.0) % MCV 95.4 (80.0-100.0) fL MCH 31.2 (25.0-35.0) pg MCHC 32.7 (31.0-37.0) g/dL RDW 13.2 (11.5-15.5) % Plt Count 186 (150-450) k/uL Neutrophils % 59 % Lymphocytes % 24 % Monocytes % 11 % Eosinophils % 3 % Basophils % 1 % Neutrophils # 3.3 (1.3-7.7) k/uL Lymphocytes # 1.4 (1.0-4.8) k/uL Monocytes # 0.6 (0-1.0) k/uL Eosinophils # 0.2 (0-0.7) k/uL Basophils # 0.1 (0-0.2) k/uL PT (9.0-12.0) sec INR (<1.1) APTT (22.0-30.0) sec Sodium 130 L (137-145) mmol/L Potassium 4.8 (3.5-5.1) mmol/L Chloride 99 (98-107) mmol/L Carbon Dioxide 22 (22-30) mmol/L Anion Gap 9 mmol/L BUN 13 (7-17) mg/dL Creatinine 0.80 (0.52-1.04) mg/dL Est GFR (MDRD) Af Amer >60 (>60 ml/min/1.73 sqM) Est GFR (MDRD) Non-Af >60 (>60 ml/min/1.73 sqM) Glucose 89 (74-99) mg/dL Calcium 9.0 (8.4-10.2) mg/dL Magnesium 2.0 (1.6-2.3) mg/dL Total Bilirubin 0.7 (0.2-1.3) mg/dL AST 20 (14-36) U/L ALT 25 (9-52) U/L Alkaline Phosphatase 85 (38-126) U/L Total Creatine Kinase 49 (30-135) U/L CK-MB (CK-2) 1.6 (0.0-2.4) ng/mL CK-MB (CK-2) Rel Index 3.3 Troponin I 0.019 (0.000-0.034) ng/mL Total Protein 7.4 (6.3-8.2) g/dL Albumin 4.0 (3.5-5.0) g/dL 02/10/17 Range/Units 13:35 WBC (3.8-10.6) k/uL RBC (3.80-5.40) m/uL Hgb (11.4-16.0) gm/dL Hct (34.0-46.0) % MCV (80.0-100.0) fL MCH (25.0-35.0) pg MCHC (31.0-37.0) g/dL RDW (11.5-15.5) % Plt Count (150-450) k/uL Neutrophils % % Lymphocytes % % Monocytes % % Eosinophils % % Basophils % % Neutrophils # (1.3-7.7) k/uL Lymphocytes # (1.0-4.8) k/uL Monocytes # (0-1.0) k/uL Eosinophils # (0-0.7) k/uL Basophils # (0-0.2) k/uL PT 10.4 (9.0-12.0) sec INR 1.0 (<1.1) APTT 24.4 (22.0-30.0) sec Sodium (137-145) mmol/L Potassium (3.5-5.1) mmol/L Chloride (98-107) mmol/L Carbon Dioxide (22-30) mmol/L Anion Gap mmol/L BUN (7-17) mg/dL Creatinine (0.52-1.04) mg/dL Est GFR (MDRD) Af Amer (>60 ml/min/1.73 sqM) Est GFR (MDRD) Non-Af (>60 ml/min/1.73 sqM) Glucose (74-99) mg/dL Calcium (8.4-10.2) mg/dL Magnesium (1.6-2.3) mg/dL Total Bilirubin (0.2-1.3) mg/dL AST (14-36) U/L ALT (9-52) U/L Alkaline Phosphatase (38-126) U/L Total Creatine Kinase (30-135) U/L CK-MB (CK-2) (0.0-2.4) ng/mL CK-MB (CK-2) Rel Index Troponin I (0.000-0.034) ng/mL Total Protein (6.3-8.2) g/dL Albumin (3.5-5.0) g/dL Disposition Clinical Impression: COPD exacerbation Disposition: ADMITTED IP TO THIS HOSP Referrals: Efrain Wade MD [Primary Care Provider] - 1-2 days Time of Disposition: 14:28
[2017-02-10 13:56] LABS: Carbon Dioxide 22 mmol/L (22-30); Chloride 99 mmol/L (98-107); Glucose 89 mg/dL (74-99); Partial Thromboplastin Time 24.4 sec (22.0-30.0); Potassium 4.8 mmol/L (3.5-5.1); Sodium 130 mmol/L (137-145)
[2017-02-10 13:57] LABS: ALT 25 U/L (9-52); AST 20 U/L (14-36); Alkaline Phosphatase 85 U/L (38-126); Anion Gap 9 mmol/L; Blood Urea Nitrogen 13 mg/dL (7-17); Non-African American GFR(MDRD) >60 (>60 ml/min/1.73 sqM); Total Bilirubin 0.7 mg/dL (0.2-1.3); Total Protein 7.4 g/dL (6.3-8.2)
[2017-02-10 13:57] LABS: Basophils # (A) 0.1 k/uL (0-0.2); Basophils % (A) 1 %; CHCM 32.7; Eosinophils # (A) 0.2 k/uL (0-0.7); Eosinophils % (A) 3 %; HCT 52.3 % (34.0-46.0); HDW 2.41; HGB 17.1 gm/dL (11.4-16.0); Luc # (Auto) 0.14; Luc % (Auto) 3; Lymphocytes # (A) 1.4 k/uL (1.0-4.8); Lymphocytes % (A) 24 %; MCH 31.2 pg (25.0-35.0); MCHC 32.7 g/dL (31.0-37.0); MCV 95.4 fL (80.0-100.0); Monocytes # (A) 0.6 k/uL (0-1.0); Monocytes % (A) 11 %; Neutrophils # (A) 3.3 k/uL (1.3-7.7); Neutrophils % (A) 59 %; RBC 5.48 m/uL (3.80-5.40); RDW 13.2 % (11.5-15.5); WBC 5.6 k/uL (3.8-10.6); WBC (Perox) 5.23
[2017-02-10 13:59] LABS: Prothrombin Time 10.4 sec (9.0-12.0)
[2017-02-10 14:01] LABS: Creatine Kinase MB 1.6 ng/mL (0.0-2.4); Troponin I 0.019 ng/mL (0.000-0.034)
--- NOTE | 2017-02-10 14:13 | XR ---
EXAMINATION TYPE: XR chest 2V DATE OF EXAM: 02/10/2017 1:57 PM COMPARISON: 10/09/2016 HISTORY: 66-year-old female with difficulty breathing TECHNIQUE: AP and lateral views FINDINGS: The cardiomediastinal silhouette, aorta, and pulmonary vasculature are within normal limits. There is some scarring or emphysematous change in the right apex. Mild diffuse interstitial prominence is chr onic. No consolidation or pleural effusion. Hyperinflation. IMPRESSION: COPD with either chronic scarring or bullous change in the right apex. No acute process seen.
[2017-02-10] MEDS ORDERED: IPRATROPIUM-ALBUTEROL 3 ML NEB INHALATION PRN (14:29)
[2017-02-10] MEDS ORDERED: MELOXICAM 7.5 MG TAB PO PRN (18:06)
[2017-02-10] MEDS: methylPREDNISolone SOD SUCCI 125 MG/2 ML VIAL IV SCH ×2 (18:34→23:11)
[2017-02-10] MEDS: NICOTINE 21MG/24HR PATCH TRANSDERM SCH (18:35)
[2017-02-10] MEDS: CARVEDILOL 12.5 MG TAB PO SCH (18:35)
[2017-02-10] MEDS: ALBUTEROL NEBULIZED 2.5 MG/3 ML INHALATION SCH ×2 (20:06→22:54)
[2017-02-10] MEDS: LEVOFLOXACIN 750 MG TAB PO SCH (20:23)
[2017-02-10] MEDS: ALPRAZolam 0.25 MG TAB PO SCH (20:23)
--- NOTE | 2017-02-10 23:30 | HP ---
DATE OF SERVICE: 02/10/2017 CHIEF COMPLAINT: Difficulty in breathing, cough and sputum production. HISTORY OF PRESENT ILLNESS: Ms. Watt is a 66-year-old female with a past medical history of COPD, oxygen-dependent; hypertension, hyperlipidemia, thyroid disorder, admitted to the hospital with a chief complaint of cough and difficulty in breathing. Patient has a nebulizer at home, was broke for the past 1 week. She has not been getting any type of breathing treatments and she states that she has been around kids who are sick with a cold and cough. The patient complains of increased difficulty in breathing along with cough and sputum production. She denies having any fevers or any chest pains. Patient denies having any nausea, vomiting or diarrhea. Denies having any headaches, lightheadedness, dizziness or near-syncopal episodes. Denies having any focal weakness. REVIEW OF SYSTEMS: CONSTITUTIONAL: No fever. No chills or rigors. RESPIRATORY: As per HPI. CARDIAC: No chest pain or palpitations. GI: No abdominal pain, nausea, vomiting or diarrhea. : No dysuria or hematuria. HEMATOLOGICAL: No history of recurrent infections or easy bruising. ENDOCRINE: Positive for thyroid disorder. MUSCULOSKELETAL: No joint pains or swelling. SKIN: No rashes. NEUROLOGICAL: Denies having any loss of consciousness headaches or dizziness. All 13 review of systems are done and are negative except for ones mentioned in HPI. PAST MEDICAL HISTORY: Significant for COPD, hypertension, hyperlipidemia, thyroid disorder. PAST SURGICAL HISTORY: Positive for adenoidectomy, tonsillectomy, tubal ligation. ALLERGIES TO CODEINE. Patient's home medications: 1. Levothyroxine 50 mcg p.o. daily. 2. Symbicort 2 puffs inhalations b.i.d. 3. Albuterol nebulization p.r.n. for shortness of breath. 4. Xanax 0.5 mg p.o. b.i.d. 5. Meloxicam 7.5 mg p.o. daily. 6. Coreg 12.5 mg p.o. b.i.d. 7. Lisinopril 10 mg p.o. daily. 8. Paroxetine 10 mg p.o. daily. 9. Prednisone 2.5 mg p.o. daily. SOCIAL HISTORY: She is a current every day smoker. Occasional alcohol use and no history of intravenous drug abuse. FAMILY HISTORY: Positive for HTN. On examination, patient's vital signs temperature 97.6, heart rate 71, respiratory rate 18, blood pressure 163/79, saturating at 93% on 3 liters of nasal cannula. GENERAL EXAMINATION: Patient appears to be no acute distress. HEAD: Atraumatic, normocephalic. EYES: Pupils, round, and reactive to light. NECK: No JVD. No thyromegaly. CARDIOVASCULAR: S1, S2 heard. LUNGS: Diminished breath sounds in all lung silva. The patient has expiratory wheezes in all lung silva. No crackles appreciated. ABDOMEN: Soft, nontender. Bowel sounds are positive. EXTREMITIES: No edema. No cyanosis, no clubbing. Peripheral pulses are felt. MATERIAL HANDLER 1ST SHIFT: Alert, awake, oriented x3. No focal neurological deficits. PSYCHIATRIC: Appropriate mood and affect. GENERAL EXAMINATION: Patient is thin, cachectic. Patient's labs: White count of 5.6, hemoglobin is 17.1, platelets of 186 , sodium 130, potassium 4.8 , chloride 99, bicarb 22, BUN 13, creatinine 0.80. ASSESSMENT AND PLAN: 1. Acute exacerbation of chronic obstructive pulmonary disease, most likely secondary to acute tracheobronchitis. The patient has been started on levofloxacin, IV steroids and breathing treatments. 2. Hypertension. 3. Hyperlipidemia. 4. Hypothyroidism. 5. Nicotine dependence. 6. History of anxiety/depression. PLAN: The plan is to continue the current medications regimen. Patient's nebulizer at home has been broken and she has not been getting her breathing treatments at home so social media project manager on board and trying to get insurance approved for her nebulizer. Further recommendations to follow depending on the progress of the patient. BRITTANIED
[2017-02-11] MEDS: ALBUTEROL NEBULIZED 2.5 MG/3 ML INHALATION SCH ×5 (04:28→19:02)
[2017-02-11] MEDS: LEVOTHYROXINE 50 MCG TAB PO SCH (06:40)
[2017-02-11 07:03] LABS: Basophils % (A) 0 %; CH 30.6; CHCM 32.4; Eosinophils % (A) 0 %; HCT 45.3 % (34.0-46.0); HDW 2.37; HGB 14.9 gm/dL (11.4-16.0); Luc # (Auto) 0.05; Luc % (Auto) 1; Lymphocytes # (A) 0.6 k/uL (1.0-4.8); Lymphocytes % (A) 15 %; MCH 31.1 pg (25.0-35.0); MCHC 32.8 g/dL (31.0-37.0); MCV 94.9 fL (80.0-100.0); Mean Platelet Volume 7.9; Monocytes # (A) 0.1 k/uL (0-1.0); Monocytes % (A) 3 %; Neutrophils # (A) 3.1 k/uL (1.3-7.7); Neutrophils % (A) 81 %; RBC 4.78 m/uL (3.80-5.40); RDW 13.1 % (11.5-15.5); WBC 3.9 k/uL (3.8-10.6); WBC (Perox) 3.83
[2017-02-11 07:18] LABS: Anion Gap 12 mmol/L; Blood Urea Nitrogen 16 mg/dL (7-17); Calcium 9.7 mg/dL (8.4-10.2); Carbon Dioxide 20 mmol/L (22-30); Chloride 99 mmol/L (98-107); Glucose 148 mg/dL (74-99); Non-African American GFR(MDRD) >60 (>60 ml/min/1.73 sqM); Sodium 131 mmol/L (137-145)
[2017-02-11] MEDS: CARVEDILOL 12.5 MG TAB PO SCH ×2 (07:58→18:01)
[2017-02-11] MEDS: methylPREDNISolone SOD SUCCI 125 MG/2 ML VIAL IV SCH ×3 (07:58→18:00)
[2017-02-11] MEDS: LISINOPRIL 10 MG TAB PO SCH (08:00)
[2017-02-11] MEDS: NICOTINE 21MG/24HR PATCH TRANSDERM SCH (08:03)
[2017-02-11] MEDS: ALPRAZolam 0.25 MG TAB PO SCH ×2 (08:04→20:32)
[2017-02-11] MEDS: PARoxetine 10 MG TAB PO SCH (12:51)
--- NOTE | 2017-02-11 15:55 | PN ---
DATE OF SERVICE: 02/11/2017. INTERVAL HISTORY: Ms. Watt is a 66-year-old female with a past medical history of chronic obstructive pulmonary disease, oxygen dependent, hypertension, hyperlipidemia, thyroid disorder, admitted to the hospital with chief complaint of cough and difficulty in breathing. She is being treated with IV antibiotics, IV steroids and antibiotics and breathing treatments. Overnight no active issues as per nursing staff report, patient is comfortably, sitting in bed, appears to be no acute distress. She does not have any active ongoing complaints. REVIEW OF SYSTEMS: CONSTITUTIONAL: Denies any fevers, chills or rigors. RESPIRATORY: Difficulty in breathing has improved. CARDIOVASCULAR: No chest pain. No palpitations. GI: No abdominal pain, nausea, diarrhea. : No dysuria or hematuria. The patient's medications have been reviewed. On examination, patient's vital signs temperature 97.7, heart rate 79, respiratory rate 18, blood pressure 149/81, saturating at 93% on 3 liters of nasal cannula. GENERAL EXAMINATION: Patient appears to be no acute distress. HEAD: Atraumatic, normocephalic. EYES: Pupils, round, and reactive to light. NECK: No JVD. No thyromegaly. CARDIOVASCULAR: S1, S2 heard. LUNGS: Diminished breath sounds in all lung silva. The patient has expiratory wheezes in all lung silva. No crackles appreciated. ABDOMEN: Soft, nontender. Bowel sounds are positive. EXTREMITIES: No edema. No cyanosis, no clubbing. Peripheral pulses are felt. SAFETY SECURITY OFFICER: Alert, awake, oriented x3. No focal neurological deficits. PSYCHIATRIC: Appropriate mood and affect. GENERAL EXAMINATION: Patient is thin, cachectic. Patient's labs: White count of 3.9, hemoglobin is 14.9, platelets of 231, sodium 131, potassium 5, chloride 199, bicarb 20, BUN 16, creatinine 0.69. ASSESSMENT AND PLAN: 1. Acute exacerbation of chronic obstructive pulmonary disease, most likely secondary to acute tracheobronchitis. The patient has been started on levofloxacin, IV steroids and breathing treatments. She is doing much better. 2. Hypertension. 3. Hyperlipidemia. 4. Hypothyroidism. 5. Nicotine dependence. 6. History of anxiety/depression. PLAN: The plan is to continue the current medications regimen. Patient's nebulizer at home has been broken and she has not been getting her breathing treatments at home so outreach and education social worker on board and trying to get insurance approved for her nebulizer. Further recommendations to follow depending on the progress of the patient.
[2017-02-11] MEDS: LEVOFLOXACIN 750 MG TAB PO SCH (21:29)
[2017-02-12] MEDS: LEVOTHYROXINE 50 MCG TAB PO SCH (06:33)
[2017-02-12 07:25] LABS: Basophils % (A) 0 %; CH 31.1; CHCM 32.5; Eosinophils # (A) 0.1 k/uL (0-0.7); Eosinophils % (A) 0 %; HCT 46.1 % (34.0-46.0); HDW 2.31; HGB 14.8 gm/dL (11.4-16.0); Luc # (Auto) 0.11; Luc % (Auto) 1; Lymphocytes # (A) 0.8 k/uL (1.0-4.8); Lymphocytes % (A) 5 %; MCH 30.9 pg (25.0-35.0); MCHC 32.2 g/dL (31.0-37.0); Mean Platelet Volume 8.2; Monocytes # (A) 0.6 k/uL (0-1.0); Monocytes % (A) 4 %; Neutrophils # (A) 14.1 k/uL (1.3-7.7); Neutrophils % (A) 90 %; RDW 13.3 % (11.5-15.5); WBC 15.6 k/uL (3.8-10.6); WBC (Perox) 15.96
[2017-02-12] MEDS: CARVEDILOL 12.5 MG TAB PO SCH (07:36)
[2017-02-12] MEDS: NICOTINE 21MG/24HR PATCH TRANSDERM SCH (07:36)
[2017-02-12] MEDS: ALPRAZolam 0.25 MG TAB PO SCH (07:36)
[2017-02-12] MEDS: PARoxetine 10 MG TAB PO SCH (07:37)
[2017-02-12] MEDS: LISINOPRIL 10 MG TAB PO SCH (07:37)
[2017-02-12 07:59] LABS: Anion Gap 11 mmol/L; Blood Urea Nitrogen 20 mg/dL (7-17); Calcium 9.9 mg/dL (8.4-10.2); Carbon Dioxide 20 mmol/L (22-30); Chloride 103 mmol/L (98-107); Glucose 131 mg/dL (74-99); Non-African American GFR(MDRD) >60 (>60 ml/min/1.73 sqM); Potassium 4.6 mmol/L (3.5-5.1); Sodium 134 mmol/L (137-145)
[2017-02-12] MEDS: ALBUTEROL NEBULIZED 2.5 MG/3 ML INHALATION SCH ×3 (08:05→15:01)
[2017-02-12] MEDS ORDERED: predniSONE 50 MG TAB PO SCH (09:00)
[2017-02-12 14:24] VITALS: BP 179/82; RESP 18; TEMP 97
[2017-02-12 15:13] VITALS: PULSE 74
--- NOTE | 2017-02-12 15:59 | P.CNPUL ---
History of Present Illness Consult date: 02/12/17 Requesting physician: Gallo Tompkins Reason for consult: COPD Chief complaint: Shortness of breath, cough and wheezing History of present illness: This is a 66-year-old female with history of severe COPD, O2 dependent, prednisone dependent, FEV1 is no more than 35%, patient is maintained on oxygen at 3 L nasal cannula, he is also on prednisone at 2.5 mg daily. Her last office visit was 11/28/2016, and she was doing relatively well, better than expected considering her COPD. Patient was admitted on 02/10/2017 with symptoms of cough wheezing shortness of breath, and we were asked to see her on consultation today. Patient is doing much better today, breathing a lot easier , hardly any cough, no wheezing, no shortness of breath is significantly improved. As a matter of fact the patient was wondering if I could clear him to go home today. On physical examinations he sounded fairly clear, hence I recommended discharge planning and follow-up on outpatient basis. Review of Systems Constitutional: No fever no chills patient is generally weak, no weight loss. HEENT: Negative Pulmonary: As noted in the history of the present illness Cardiac: No chest pain no palpitations no angina. GI: No nausea no vomiting no abdominal pain no melena no hematemesis. Genitourinary: No dysuria frequency or urgency Hematologic: No anemia blood loss and no history of thromboembolic disease. Psychiatric: No symptoms of depression. Musculoskeletal: Negative Neurologic: Negative Endocrine: Negative. Patient is known to have history of hypothyroidism, on replacement therapy. Past Medical History Past Medical History: COPD, Hyperlipidemia, Hypertension, Thyroid Disorder Additional Past Medical History / Comment(s): arthritis History of Any Multi-Drug Resistant Organisms: None Reported Past Surgical History: Adenoidectomy, Cholecystectomy, Tonsillectomy, Tubal Ligation Past Psychological History: Anxiety Smoking Status: Current every day smoker Past Alcohol Use History: Occasional Past Drug Use History: None Reported Medications and Allergies Home Medications Medication Instructions Recorded Confirmed Type ALPRAZolam [Xanax] 0.25 mg PO BID 10/08/16 02/10/17 History Albuterol Inhaler [Ventolin Hfa 2 puff INHALATION RT-Q4H 10/08/16 02/10/17 History Inhaler] Albuterol Nebulized [Ventolin 2.5 mg INHALATION RT-QID 10/08/16 02/10/17 History Nebulized] Budesonide/Formoterol Fumarate 2 puff INHALATION RT-BID 10/08/16 02/10/17 History [Symbicort 160-4.5 Mcg Inhaler] Ipratropium Nebulized [Atrovent 0.5 mg INHALATION RT-QID 10/08/16 02/10/17 History Nebulized] Levothyroxine Sodium [Synthroid] 50 mcg PO DAILY 10/08/16 02/10/17 History Meloxicam [Mobic] 7.5 mg PO DAILY PRN 10/08/16 02/10/17 History predniSONE 2.5 mg PO DAILY 02/10/17 02/10/17 History Allergies Allergy/AdvReac Type Severity Reaction Status Date / Time codeine AdvReac Severe Dizziness Verified 02/10/17 14:20 Physical Exam Vitals: Vital Signs Temp Pulse Pulse Resp BP Pulse Ox 02/12/17 15:12 74 02/12/17 15:02 70 02/12/17 14:24 97.0 F L 82 18 179/82 96 02/12/17 11:24 72 02/12/17 11:12 70 02/12/17 08:15 74 02/12/17 08:05 72 02/12/17 08:00 90 15 02/12/17 07:20 97.7 F 90 15 166/82 93 L 02/12/17 01:14 97.9 F 75 18 147/69 94 L 02/11/17 20:00 18 02/11/17 19:54 97.6 F 81 18 138/63 95 02/11/17 19:11 78 02/11/17 19:02 76 02/11/17 16:25 98.1 F 76 16 157/58 98 Intake and Output 02/12/17 02/12/17 02/12/17 06:59 14:59 22:59 Intake Total 840 Balance 840 Intake: Oral 840 Other: Voiding Method Toilet Weight 52.163 kg Patient Weight 02/13/17 06:59 Weight 52.163 kg Physical Exam: Revealed a 66-year-old female in no distress HEENT:[Neck is supple.] [No neck masses.] [No thyromegaly.] [No JVD.] Chest: [Diminished breath sounds at the bases no crackles or rhonchi or wheezes Cardiac Exam: [Normal S1 and S2, no S3 gallop, no murmur.] Abdomen: [Soft, nontender, no megaly, no rebound, no guarding, normal bowel sounds.] Extremities: [No clubbing, no edema, no cyanosis.] Neurological Exam: [No focal neurologic deficit.] Results - Laboratory Findings CBC and BMP: 02/12/17 06:56 02/12/17 06:56 PT/INR, D-dimer PT 10.4 sec (9.0-12.0) 02/10/17 13:35 INR 1.0 (<1.1) 02/10/17 13:35 Abnormal lab findings: Abnormal Labs 02/10/17 02/10/17 02/11/17 13:10 13:35 06:30 WBC RBC 5.48 H Hgb 17.1 H Hct 52.3 H Neutrophils # Lymphocytes # 0.6 L Sodium 130 L Carbon Dioxide BUN Glucose 02/11/17 02/12/17 02/12/17 06:30 06:56 06:56 WBC 15.6 H RBC Hgb Hct 46.1 H Neutrophils # 14.1 H Lymphocytes # 0.8 L Sodium 131 L 134 L Carbon Dioxide 20 L 20 L BUN 20 H Glucose 148 H 131 H - Diagnostic Findings Chest x-ray: image reviewed (No evidence of active disease) Assessment and Plan Plan: Impression: 1 acute exacerbation of severe COPD: Stage IV, patient is improving and could be discharged home today. 2 acute tracheobronchitis improved no evidence of pneumonia on chest x-ray. History of multiple comorbidities including hypothyroidism and anxiety and chronic hypoxic respiratory failure secondary to COPD. Recommendation: Agree with discharge planning today, patient is to resume back her usual medications, taper the prednisone from 30 mg daily over the next 2 weeks until maintenance dose of 5 mg and patient is to remain on 5 until she sees be in the office in 2-3 weeks. Time with Patient: Greater than 30
--- NOTE | 2017-02-13 20:19 | DS ---
DATE OF ADMISSION: 02/10/2017 DATE OF DISCHARGE: 02/12/2017 FINAL DIAGNOSES: 1. Chronic obstructive pulmonary disease, acute exacerbation, with acute purulent tracheobronchitis. 2. Hypertension, essential. 3. Hyperlipidemia. 4. Hypothyroidism. 5. History of nicotine dependence. 6. Anxiety, depression not otherwise specified. DISCHARGE DISPOSITION: The patient will be discharged in stable condition with a guarded prognosis. Dr. Min cleared the patient for discharge. Total time taken 35 minutes. HISTORY OF PRESENT ILLNESS: This 66-year-old woman with a past medical history of multiple medical problems, as mentioned earlier, was admitted with COPD, acute exacerbation. Patient was treated with bronchodilators, steroids improved significantly. On exam, vitals are stable. CARDIOVASCULAR SYSTEM: S1, S2 muffled. ABDOMEN: Soft. NERVOUS SYSTEM: No focal deficit. DISCHARGE ADVICE AND MEDICATIONS: 1. Diet is cardiac. 2. Activity limited until followup. 3. Follow up with Dr. Efrain Wade in 3 days. 4. Follow up with Dr. Min as advised. 5. Albuterol HFA 2 puffs p.r.n. 6. Albuterol nebulizer 2.5 q.i.d. and p.r.n. 7. Xanax 0.25 b.i.d. 8. Symbicort 2 puffs b.i.d. 9. Coreg 12.5 mg p.o. b.i.d. 10. Albuterol, Atrovent updrafts q.i.d. and p.r.n. 11. Levaquin 500 p.o. daily for 5 days. 12. Synthroid 50 mcg p.o. daily. 13. Prinivil 10 mg p.o. daily. 14. Mobic 7.5 daily. 15. Medrol Dosepak. 16. Paxil 10 mg p.o. daily. 17. Prednisone 2.5 mg daily. Start after Medrol Dosepak. Once again, the patient will be discharged in stable condition with guarded prognosis. MTDD
== END 2017-02-12 17:06 | disposition home or self-care (01) ==
LOC: EC 12:40 → SUPCPDRO 12:40 → 3SUR 14:24 → 3OBS 17:44 → 3SUR 02-11 19:50
PROVIDERS: ADMIT Internal Medicine; ATTEND Internal Medicine
DX: J44.1 Chronic obstructive pulmonary disease with (acute) exacerbation (principal); J44.0 Chronic obstructive pulmonary disease with (acute) lower respiratory infection; J20.9 Acute bronchitis, unspecified; E78.5 Hyperlipidemia, unspecified; E03.9 Hypothyroidism, unspecified; I10 Essential (primary) hypertension; F41.9 Anxiety disorder, unspecified; F32.9 Major depressive disorder, single episode, unspecified; M19.90 Unspecified osteoarthritis, unspecified site; F17.200 Nicotine dependence, unspecified, uncomplicated; Z79.899 Other long term (current) drug therapy; Z79.51 Long term (current) use of inhaled steroids; Z79.52 Long term (current) use of systemic steroids; Z79.1 Long term (current) use of non-steroidal anti-inflammatories (NSAID); Z88.5 Allergy status to narcotic agent; Z99.81 Dependence on supplemental oxygen; Z82.49 Family history of ischemic heart disease and other diseases of the circulatory system; J96.11 Chronic respiratory failure with hypoxia
CPT/HCPCS: 96374 ×2; 99285 ×2; 96376 ×2; 36415; 94640 ×6; 94760; 93005; 80053; 80048 ×2; 82550; 82553; 83735; 84484; 85025 ×3; 85610; 85730; 71020; G0378 ×3; S4990 ×3; J2930 ×2; J7512

== ENCOUNTER 2017-10-03 11:11 | Inpatient (IN) | payer MEDICARE, OTHER ==
[2017-10-03] MEDS ORDERED: ACETAMINOPHEN TAB 325 MG TAB PO STA (11:31)
[2017-10-03] MEDS ORDERED: methylPREDNISolone SOD SUCCI 125 MG/2 ML VIAL IV STA (11:31)
[2017-10-03] MEDS ORDERED: IPRATROPIUM-ALBUTEROL 3 ML NEB INHALATION STA (11:31)
--- NOTE | 2017-10-03 11:40 | ED ---
SOB HPI - General Chief Complaint: Shortness of Breath Stated Complaint: COPD exacerbation Time Seen by Provider: 10/03/17 11:18 Source: patient, family, RN notes reviewed Mode of arrival: wheelchair Limitations: no limitations - History of Present Illness Initial Comments: This a 67 show female presents emergency Department chief complaint shortness of breath. She states that she's been having increased shortness breath over the last 3-4 days. She states that she has COPD and her globe tester is Dr. Min. Patient states that she does have a cough though she has chronic cough. Patient is dependent on oxygen 2 L while at rest 3 L while and bleeding. She states that she has been increased on her daily steroids by her primary care physician last week states that she did not have relief. Patient states that she was seen at [facility] yesterday for Right but she did not mention shortness of breath at that time. She states she has scratches to her right hand region and a bite valeriano to her left hand. Patient states that she did not know she had a fever. - Related Data Home Medications Medication Instructions Recorded Confirmed ALPRAZolam [Xanax] 0.25 mg PO BID 10/08/16 10/03/17 Albuterol Inhaler [Ventolin Hfa 2 puff INHALATION RT-Q4H PRN 10/08/16 10/03/17 Inhaler] Budesonide/Formoterol Fumarate 2 puff INHALATION RT-BID 10/08/16 10/03/17 [Symbicort 160-4.5 Mcg Inhaler] Levothyroxine Sodium [Synthroid] 50 mcg PO DAILY 10/08/16 10/03/17 predniSONE 2.5 mg PO DAILY 02/10/17 10/03/17 traMADol HCL [Ultram] 50 mg PO TID PRN 05/29/17 10/03/17 Amoxic-Pot Clav 875-125Mg 1 tab PO Q12HR 10/03/17 10/03/17 [Augmentin 875-125] Previous Rx's Medication Instructions Recorded Carvedilol [Coreg] 12.5 mg PO BID #60 tablet 10/11/16 Lisinopril [Prinivil] 10 mg PO DAILY #30 tab 10/11/16 PARoxetine HCL [Paxil] 10 mg PO DAILY #30 tab 10/11/16 Famotidine [Pepcid] 20 mg PO BID #60 tab 05/30/17 Ipratropium-Albuterol Nebulize 3 ml INHALATION RT-QID #120 neb 05/30/17 [Duoneb 0.5 mg-3 mg/3 ml Soln] Allergies Allergy/AdvReac Type Severity Reaction Status Date / Time codeine AdvReac Severe Dizziness Verified 10/03/17 11:53 Review of Systems ROS Statement: Those systems with pertinent positive or pertinent negative responses have been documented in the HPI. ROS Other: All systems not noted in ROS Statement are negative. Past Medical History Past Medical History: COPD, Hyperlipidemia, Hypertension, Thyroid Disorder Additional Past Medical History / Comment(s): arthritis History of Any Multi-Drug Resistant Organisms: None Reported Past Surgical History: Adenoidectomy, Cholecystectomy, Tonsillectomy, Tubal Ligation Additional Past Surgical History / Comment(s): pt is scheduled for right hipm replacement in June 2017 Past Psychological History: Anxiety Smoking Status: Current every day smoker Past Alcohol Use History: Occasional Past Drug Use History: None Reported General Exam Limitations: no limitations General appearance: alert, in no apparent distress Head exam: Present: atraumatic, normocephalic, normal inspection Eye exam: Present: normal appearance, PERRL, EOMI. Absent: scleral icterus, conjunctival injection, periorbital swelling ENT exam: Present: normal exam, normal oropharynx Neck exam: Present: normal inspection, full ROM. Absent: tenderness, meningismus, lymphadenopathy Respiratory exam: Present: respiratory distress (Mild to moderate), wheezes ( Throughout). Absent: normal lung sounds bilaterally, rales, rhonchi, stridor Cardiovascular Exam: Present: regular rate, normal rhythm, normal heart sounds. Absent: systolic murmur, diastolic murmur, rubs, gallop, clicks Neurological exam: Present: alert, oriented X3, CN II-XII intact Course Vital Signs 10/03/17 10/03/17 10/03/17 11:21 11:46 11:49 Temperature 100.2 F H Pulse Rate 97 92 Respiratory 30 H 28 H Rate Blood Pressure 134/56 O2 Sat by Pulse 92 L Oximetry 10/03/17 10/03/17 11:59 12:54 Temperature 97.6 F Pulse Rate 89 96 Respiratory 20 Rate Blood Pressure 131/57 O2 Sat by Pulse 96 Oximetry Medical Decision Making - Lab Data Result diagrams: 10/03/17 11:41 10/03/17 11:41 Lab Results 10/03/17 10/03/17 10/03/17 Range/Units 11:41 11:41 11:41 WBC 7.6 (3.8-10.6) k/uL RBC 4.46 (3.80-5.40) m/uL Hgb 13.8 (11.4-16.0) gm/dL Hct 42.2 (34.0-46.0) % MCV 94.7 (80.0-100.0) fL MCH 30.9 (25.0-35.0) pg MCHC 32.6 (31.0-37.0) g/dL RDW 13.0 (11.5-15.5) % Plt Count 242 (150-450) k/uL Neutrophils % 84 % Lymphocytes % 6 % Monocytes % 7 % Eosinophils % 1 % Basophils % 1 % Neutrophils # 6.3 (1.3-7.7) k/uL Lymphocytes # 0.4 L (1.0-4.8) k/uL Monocytes # 0.6 (0-1.0) k/uL Eosinophils # 0.1 (0-0.7) k/uL Basophils # 0.1 (0-0.2) k/uL PT (9.0-12.0) sec INR (<1.2) APTT (22.0-30.0) sec Sodium 127 L (137-145) mmol/L Potassium 4.7 (3.5-5.1) mmol/L Chloride 96 L (98-107) mmol/L Carbon Dioxide 20 L (22-30) mmol/L Anion Gap 11 mmol/L BUN 15 (7-17) mg/dL Creatinine 0.78 (0.52-1.04) mg/dL Est GFR (MDRD) Af Amer >60 (>60 ml/min/1.73 sqM) Est GFR (MDRD) Non-Af >60 (>60 ml/min/1.73 sqM) Glucose 91 (74-99) mg/dL Plasma Lactic Acid Frantz (0.7-2.0) mmol/L Calcium 9.0 (8.4-10.2) mg/dL Magnesium 1.7 (1.6-2.3) mg/dL Total Bilirubin 0.5 (0.2-1.3) mg/dL AST 22 (14-36) U/L ALT 30 (9-52) U/L Alkaline Phosphatase 74 (38-126) U/L Total Creatine Kinase 48 (30-135) U/L CK-MB (CK-2) 2.7 H* (0.0-2.4) ng/mL CK-MB (CK-2) Rel Index 5.6 Troponin I <0.012 (0.000-0.034) ng/mL Total Protein 6.8 (6.3-8.2) g/dL Albumin 3.7 (3.5-5.0) g/dL Influenza Type A RNA (Not Detectd) Influenza Type B (PCR) (Not Detectd) 10/03/17 10/03/17 10/03/17 Range/Units 11:41 11:41 11:41 WBC (3.8-10.6) k/uL RBC (3.80-5.40) m/uL Hgb (11.4-16.0) gm/dL Hct (34.0-46.0) % MCV (80.0-100.0) fL MCH (25.0-35.0) pg MCHC (31.0-37.0) g/dL RDW (11.5-15.5) % Plt Count (150-450) k/uL Neutrophils % % Lymphocytes % % Monocytes % % Eosinophils % % Basophils % % Neutrophils # (1.3-7.7) k/uL Lymphocytes # (1.0-4.8) k/uL Monocytes # (0-1.0) k/uL Eosinophils # (0-0.7) k/uL Basophils # (0-0.2) k/uL PT 10.0 (9.0-12.0) sec INR 1.0 (<1.2) APTT 23.8 (22.0-30.0) sec Sodium (137-145) mmol/L Potassium (3.5-5.1) mmol/L Chloride (98-107) mmol/L Carbon Dioxide (22-30) mmol/L Anion Gap mmol/L BUN (7-17) mg/dL Creatinine (0.52-1.04) mg/dL Est GFR (MDRD) Af Amer (>60 ml/min/1.73 sqM) Est GFR (MDRD) Non-Af (>60 ml/min/1.73 sqM) Glucose (74-99) mg/dL Plasma Lactic Acid Frantz 0.9 (0.7-2.0) mmol/L Calcium (8.4-10.2) mg/dL Magnesium (1.6-2.3) mg/dL Total Bilirubin (0.2-1.3) mg/dL AST (14-36) U/L ALT (9-52) U/L Alkaline Phosphatase (38-126) U/L Total Creatine Kinase (30-135) U/L CK-MB (CK-2) (0.0-2.4) ng/mL CK-MB (CK-2) Rel Index Troponin I (0.000-0.034) ng/mL Total Protein (6.3-8.2) g/dL Albumin (3.5-5.0) g/dL Influenza Type A RNA Not Detected (Not Detectd) Influenza Type B (PCR) Not Detected (Not Detectd) Disposition Clinical Impression: COPD exacerbation, Cat bite Disposition: ADMITTED IP TO THIS HOSP Condition: Stable Referrals: Jackie Min MD [Primary Care Provider] - 1-2 days
[2017-10-03 12:03] LABS: Basophils # (A) 0.1 k/uL (0-0.2); Basophils % (A) 1 %; Eosinophils # (A) 0.1 k/uL (0-0.7); Eosinophils % (A) 1 %; HCT 42.2 % (34.0-46.0); HGB 13.8 gm/dL (11.4-16.0); Lymphocytes # (A) 0.4 k/uL (1.0-4.8); Lymphocytes % (A) 6 %; MCH 30.9 pg (25.0-35.0); MCHC 32.6 g/dL (31.0-37.0); MCV 94.7 fL (80.0-100.0); Mean Platelet Volume 7.6; Monocytes # (A) 0.6 k/uL (0-1.0); Monocytes % (A) 7 %; Neutrophils # (A) 6.3 k/uL (1.3-7.7); Neutrophils % (A) 84 %; Platelet Count 242 k/uL (150-450); RBC 4.46 m/uL (3.80-5.40); WBC 7.6 k/uL (3.8-10.6)
[2017-10-03 12:15] LABS: ALT 30 U/L (9-52); AST 22 U/L (14-36); Albumin 3.7 g/dL (3.5-5.0); Alkaline Phosphatase 74 U/L (38-126); Anion Gap 11 mmol/L; Blood Urea Nitrogen 15 mg/dL (7-17); Carbon Dioxide 20 mmol/L (22-30); Chloride 96 mmol/L (98-107); Glucose 91 mg/dL (74-99); Magnesium 1.7 mg/dL (1.6-2.3); Potassium 4.7 mmol/L (3.5-5.1); Sodium 127 mmol/L (137-145); Total Bilirubin 0.5 mg/dL (0.2-1.3); Total Protein 6.8 g/dL (6.3-8.2)
[2017-10-03 12:35] LABS: Partial Thromboplastin Time 23.8 sec (22.0-30.0)
[2017-10-03 12:38] LABS: Creatine Kinase 48 U/L (30-135)
--- NOTE | 2017-10-03 12:41 | XR ---
EXAMINATION TYPE: XR chest 2V DATE OF EXAM: 10/03/2017 COMPARISON: 02/10/2017 HISTORY: Shortness of breath TECHNIQUE: Frontal and lateral views of the chest are obtained. FINDINGS: Scattered senescent parenchymal changes noted. Hyperinflation compatible with COPD. Chronic scarring right upper lobe. No evidence for infiltrate. No evidence for atelectasis. Heart size is stable. Mediastinal structures are stable and grossly unremarkable. No evidence for hilar prominence. Degenerative changes dorsal spine. IMPRESSION: 1. No evidence for acute pulmonary disease.
[2017-10-03 12:51] LABS: Troponin I <0.012 ng/mL (0.000-0.034)
[2017-10-03 13:01] LABS: Creatine Kinase MB 2.7 ng/mL (0.0-2.4)
[2017-10-03] MEDS ORDERED: ALBUTEROL NEBULIZED 2.5 MG/3 ML INHALATION PRN (13:40)
[2017-10-03] MEDS: IPRATROPIUM-ALBUTEROL 3 ML NEB INHALATION PRN ×2 (17:11→19:33)
[2017-10-03 17:15] LABS: Glucose,Whole Blood 157 mg/dL (75-99)
[2017-10-03] MEDS: methylPREDNISolone SOD SUCCI 125 MG/2 ML VIAL IV SCH ×2 (17:44→23:31)
[2017-10-03] MEDS ORDERED: traMADol 50 MG TAB PO PRN (20:34)
[2017-10-03] MEDS ORDERED: NICOTINE POLACRILEX 2 MG GUM BUCCAL PRN (20:35)
[2017-10-03 20:56] LABS: Glucose,Whole Blood 137 mg/dL (75-99)
[2017-10-03] MEDS: NICOTINE 21MG/24HR PATCH TRANSDERM SCH (21:35)
[2017-10-03] MEDS: FAMOTIDINE 20 MG TAB PO SCH (21:35)
[2017-10-03] MEDS: ENOXAPARIN 40 MG/0.4 ML SYRINGE SQ SCH (21:35)
[2017-10-03] MEDS: AMOXIC-POT CLAV 875-125MG 1 EACH TAB PO SCH (21:35)
[2017-10-03] MEDS: ALPRAZolam 0.25 MG TAB PO SCH (21:35)
--- NOTE | 2017-10-03 22:15 | HP ---
HISTORY AND PHYSICAL DATE OF ADMISSION: 10/03/17 PRESENTING COMPLAINT: Short of breath, wheezing. HISTORY OF PRESENTING COMPLAINT: This is a 67-year-old patient now follows with Dr. Min. The patient's chronic stable medical conditions include hypertension, hyperlipidemia, hypothyroid, anxiety, depression, osteoarthritis. The patient continues to smoke. Has a diagnosis of COPD. Also has a right posterior lung lesion that is being followed by Dr. Min. The patient presents with progressively more short of breath, cough, wheezing, white sputum going on for at least 2 or 3 days. Denies any fever. Appetite is run down, weak, tired, short of breath. Presented with COPD exacerbation. REVIEW OF SYSTEMS: Constitutional: Tired. HEENT none. Respiratory as above. Cardiovascular none. Gastrointestinal none. Genitourinary: None. MUSCULOSKELETAL: Aches and pains in different joints. Dermatological none. Hematologic none. Lymphatics none. Psychiatry slightly anxious. Neurological none. PAST MEDICAL HISTORY: COPD, right posterior lung lesion, chronic hypertension, hyperlipidemia, hypothyroid, anxiety, depression, osteoarthritis. PAST SURGICAL HISTORY: Adenoidectomy, cholecystectomy, tonsillectomy, tubal ligation. PAST PSYCH HISTORY: Anxiety, depression. SOCIAL HISTORY: Patient lives alone. Has home oxygen. Smoking 1 pack and half a day for over 50 years. No alcohol. FAMILY HISTORY: Myocardial infarction. HOME MEDICATIONS: 1. Ultram 50 mg p.o. t.i.d. p.r.n. 2. Prednisone 2.5 p.o. daily. 3. Paxil 10 mg p.o. daily. 4. Prinivil 10 mg p.o. daily. 5. Synthroid 50 mcg p.o. daily. 6. DuoNeb 4 times a day. 7. Pepcid 20 mg b.i.d. 8. Coreg 12.5 b.i.d. 9. Symbicort 160/4.5. 10.Augmentin 875 1 tab q.12 hours. 11.Ventolin HFA 2 puffs q.4h p.r.n. 12.Xanax 0.25 p.o. b.i.d. ALLERGIES: CODEINE. PHYSICAL EXAMINATION: Vital signs on presentation temperature 100.2, pulse 97, respiration 30, blood pressure 134/56, pulse 92% on 2 L. General appearance: Sitting up. Short of breath. Tired. Eyes: Pupils equal. Conjunctivae normal. HEENT: Oral cavity normal. Neck JVD not raised. Mass not palpable. RESPIRATORY: Effort increased. LUNGS: Diminished breath sounds. Prolonged expiration and wheezing. Cardiovascular: First and second sounds. No edema. ABDOMEN: Soft, nontender. Liver and spleen not palpable. Lymphatics: No lymph nodes palpable in the neck or axilla. PSYCHIATRY: Alert and oriented x3. Mood and affect anxious-appearing. Neurological: Pupils equal. Cranial nerves grossly intact. Power and sensation grossly intact. Musculoskeletal evidence of osteoarthritis especially in the hands. INVESTIGATIONS: White count 7.6, hemoglobin 13.8, potassium 4.7, sodium 127, BUN and creatinine is normal. Influenza negative. Chest x-ray nil acute. ASSESSMENT: 1. Acute severe chronic obstructive pulmonary disease exacerbation in a current smoker. 2. Chronic nicotine dependence patient is a cigarette smoker. 3. Right posterior lung lesion being followed by Dr. Min as an outpatient. 4. Essential hypertension. 5. Hyperlipidemia. 6. Hypothyroidism. 7. Anxiety, depression, not otherwise specified. 8. Primary osteoarthritis multiple joints bilaterally. 9. Hyponatremia, likely hypoosmolar. PLAN: Patient is started on nebulized bronchodilators, IV steroids and inhaled steroids. Home medications are resumed. Dr. Min was consulted. Accu-Cheks will be closely followed. Smoking cessation counseling was done with the patient. Did explain to her that the lungs are definitely gotten significantly worse. She has stopped that. We will also start the patient on nicotine patch. May use a nicotine gum as required. More than 3 minutes spent additionally for the smoke counseling. Copy Dr. Min. MMHERNANDEZL / CLARENCEN: [id number] /
[2017-10-04] MEDS ORDERED: IPRATROPIUM-ALBUTEROL 3 ML NEB INHALATION SCH
[2017-10-04] MEDS: IPRATROPIUM-ALBUTEROL 3 ML NEB INHALATION PRN (04:18)
[2017-10-04] MEDS: methylPREDNISolone SOD SUCCI 125 MG/2 ML VIAL IV SCH ×4 (06:06→23:08)
[2017-10-04] MEDS: LEVOTHYROXINE 50 MCG TAB PO SCH (06:06)
[2017-10-04 07:49] LABS: Glucose,Whole Blood 115 mg/dL (75-99)
[2017-10-04] MEDS: IPRATROPIUM-ALBUTEROL 3 ML NEB INHALATION SCH ×4 (07:59→18:58)
[2017-10-04] MEDS: SYMBICORT 160-4.5 MCG INHALER INHALATION SCH ×2 (07:59→18:58)
[2017-10-04] MEDS ORDERED: BUDESONIDE 1 MG/2 ML NEBU INHALATION SCH (08:00)
[2017-10-04] MEDS: NICOTINE 21MG/24HR PATCH TRANSDERM SCH (09:22)
[2017-10-04] MEDS: FAMOTIDINE 20 MG TAB PO SCH ×2 (09:22→20:32)
[2017-10-04] MEDS: LISINOPRIL 10 MG TAB PO SCH (09:22)
[2017-10-04] MEDS: AMOXIC-POT CLAV 875-125MG 1 EACH TAB PO SCH ×2 (09:22→20:32)
[2017-10-04] MEDS: ENOXAPARIN 40 MG/0.4 ML SYRINGE SQ SCH (09:22)
[2017-10-04] MEDS: PARoxetine 10 MG TAB PO SCH (09:22)
[2017-10-04] MEDS: CARVEDILOL 12.5 MG TAB PO SCH ×2 (09:22→17:58)
[2017-10-04] MEDS: ALPRAZolam 0.25 MG TAB PO SCH ×2 (09:58→20:32)
[2017-10-04] MEDS ORDERED: INFLUENZA VACCINE (6 MOS+) 60 MCG/0.5 ML SYRINGE IM ONE (11:16)
[2017-10-04 12:32] LABS: Glucose,Whole Blood 146 mg/dL (75-99)
[2017-10-04 17:12] LABS: Glucose,Whole Blood 147 mg/dL (75-99)
[2017-10-04] MEDS ORDERED: SODIUM CHLORIDE 0.9% 1,000 ML IV SCH (17:15)
--- NOTE | 2017-10-04 17:36 | P.CNPUL ---
History of Present Illness Consult date: 10/04/17 Requesting physician: Romeo Millan Reason for consult: dyspnea, cough Chief complaint: Cough, chills, sneezing, sputum production History of present illness: Richelle is a 67-year-old female patient that sees Dr. Min in our office for her history of advanced oxygen-dependent COPD, who presented to the emergency department on 10/03/2017 at 11:00 in the morning with complaints of 3 day history of cough, chills, sneezing, and increasing shortness of breath. Her son is also sick, and has the cold symptoms. She went to see her PCP in [facility], Dr. Gutiérrez, who gave her prednisone 20 mg daily for 5 days, with no improvement in her symptoms. She was seen at [facility] on 10/02/2017 for a cat bite, on her fourth digit of her left hand. The wound was irrigated out, however not sutured, she was given oral Augmentin and sent home. Because of her increasing shortness of breath she presented to the [facility] ED for further evaluation and treatment. On presentation she had a low-grade fever of 100.2F, chest x-ray from 10/03/2017 shows hyperinflation compatible with COPD, chronic scarring in the right upper lobe, but no evidence of acute pulmonary disease. Lab work showed WBC within normal limits, sodium was 127, chloride was 96, carbon dioxide was 20, BUN was 15, creatinine was 0.78, CK-MB was 2.7, troponin was negative 1, influenza screen was negative. Patient was started on IV steroids, DuoNeb nebulized treatments, Symbicort, her Augmentin was continued. Patient reports having loose stools at home, thinks may have started after Augmentin was initiated. Review of Systems All systems: negative Constitutional: Denies chills, Denies fever Eyes: denies blurred vision, denies pain Ears, nose, mouth and throat: Denies headache, Denies sore throat Cardiovascular: Denies chest pain, Denies shortness of breath Respiratory: Denies cough Gastrointestinal: Denies abdominal pain, Denies diarrhea, Denies nausea, Denies vomiting Genitourinary: Denies dysuria, Denies hematuria Musculoskeletal: Denies myalgias Integumentary: Denies pruritus, Denies rash Neurological: Denies numbness, Denies weakness Psychiatric: Denies anxiety, Denies depression Endocrine: Denies fatigue, Denies weight change Past Medical History Past Medical History: Cancer, Chest Pain / Angina, COPD, Hyperlipidemia, Hypertension, Osteoarthritis (OA), Thyroid Disorder Additional Past Medical History / Comment(s): arthritis, skin cancer," spot on lung- dr caridad grigsbywing up", home o2 2 liters at rest 3 liters w/ activity. "went to [facility] for cat bite yest- on abx" History of Any Multi-Drug Resistant Organisms: None Reported Past Surgical History: Adenoidectomy, Cholecystectomy, Tonsillectomy, Tubal Ligation Additional Past Surgical History / Comment(s): pt is scheduled for right hipm replacement in June 2017 Past Anesthesia/Blood Transfusion Reactions: Motion Sickness Additional Past Anesthesia/Blood Transfusion Reaction / Comment(s): had blood transfusion age 7 after tonsil sx-no known reaction to it. pt stated i was supposed to have hip sx but told unable to luns are too bad to go thru sx" Smoking Status: Current every day smoker - Past Family History Mother Family Medical History: Myocardial Infarction (NE) Father Family Medical History: Myocardial Infarction (NE) Medications and Allergies Home Medications Medication Instructions Recorded Confirmed Type ALPRAZolam [Xanax] 0.25 mg PO BID 10/08/16 10/03/17 History Albuterol Inhaler [Ventolin Hfa 2 puff INHALATION RT-Q4H PRN 10/08/16 10/03/17 History Inhaler] Budesonide/Formoterol Fumarate 2 puff INHALATION RT-BID 10/08/16 10/03/17 History [Symbicort 160-4.5 Mcg Inhaler] Levothyroxine Sodium [Synthroid] 50 mcg PO DAILY 10/08/16 10/03/17 History Carvedilol [Coreg] 12.5 mg PO BID #60 tablet 10/11/16 10/03/17 Rx Lisinopril [Prinivil] 10 mg PO DAILY #30 tab 10/11/16 10/03/17 Rx PARoxetine HCL [Paxil] 10 mg PO DAILY #30 tab 10/11/16 10/03/17 Rx predniSONE 2.5 mg PO DAILY 02/10/17 10/03/17 History traMADol HCL [Ultram] 50 mg PO TID PRN 05/29/17 10/03/17 History Famotidine [Pepcid] 20 mg PO BID #60 tab 05/30/17 10/03/17 Rx Ipratropium-Albuterol Nebulize 3 ml INHALATION RT-QID #120 neb 05/30/17 Rx [Duoneb 0.5 mg-3 mg/3 ml Soln] Amoxic-Pot Clav 875-125Mg 1 tab PO Q12HR 10/03/17 10/03/17 History [Augmentin 875-125] Allergies Allergy/AdvReac Type Severity Reaction Status Date / Time codeine AdvReac Severe Dizziness Verified 10/03/17 11:53 Physical Exam Vitals: Vital Signs Temp Pulse Pulse Resp BP Pulse Ox 10/04/17 15:35 16 10/04/17 15:19 92 10/04/17 15:09 90 10/04/17 15:00 97.7 F 82 16 129/80 96 10/04/17 08:14 88 10/04/17 08:00 88 16 94 L 10/04/17 07:00 96.8 F L 86 16 149/76 98 10/04/17 04:44 84 10/04/17 04:19 84 10/03/17 23:00 96.9 F L 91 24 126/71 94 L 10/03/17 19:47 86 10/03/17 19:35 86 10/03/17 17:23 90 10/03/17 17:14 90 Intake and Output 10/04/17 10/04/17 10/04/17 06:59 14:59 22:59 Other: # Voids 3 3 GENERAL EXAM: Alert, pleasant, 67-year-old white female comfortable in no apparent distress. HEAD: Normocephalic/atraumatic. EYES: Normal reaction of pupils, equal size. Conjunctiva pink, sclera white. NOSE: Clear with pink turbinates. THROAT: No erythema or exudates. NECK: No masses, no JVD, no thyroid enlargement, no adenopathy. CHEST: No chest wall deformity. Symmetrical expansion. LUNGS: Equal air entry with diffuse wheezing throughout the lung silva CVS: Regular rate and rhythm, normal S1 and S2, no gallops, no murmurs, no rubs ABDOMEN: Soft, nontender. No hepatosplenomegaly, normal bowel sounds, no guarding or rigidity. EXTREMITIES: No clubbing, no edema, no cyanosis, 2+ pulses and upper and lower extremities. MUSCULOSKELETAL: Muscle strength and tone normal. SPINE: No scoliosis or deformity SKIN: No rashes CENTRAL NERVOUS SYSTEM: Alert and oriented -3. No focal deficits, tone is normal in all 4 extremities. PSYCHIATRIC: Alert and oriented -3. Appropriate affect. Intact judgment and insight. Results - Laboratory Findings CBC and BMP: 10/03/17 11:41 10/03/17 11:41 PT/INR, D-dimer PT 10.0 sec (9.0-12.0) 10/03/17 11:41 INR 1.0 (<1.2) 10/03/17 11:41 Abnormal lab findings: Abnormal Labs 10/03/17 10/03/17 10/03/17 11:41 11:41 11:41 Lymphocytes # 0.4 L Sodium 127 L Chloride 96 L Carbon Dioxide 20 L POC Glucose (mg/dL) CK-MB (CK-2) 2.7 H* 10/03/17 10/03/17 10/04/17 17:05 20:54 07:46 Lymphocytes # Sodium Chloride Carbon Dioxide POC Glucose (mg/dL) 157 H 137 H 115 H CK-MB (CK-2) 10/04/17 12:30 Lymphocytes # Sodium Chloride Carbon Dioxide POC Glucose (mg/dL) 146 H CK-MB (CK-2) - Diagnostic Findings Chest x-ray: report reviewed Assessment and Plan Plan: Assessment: #1. Acute exacerbation of COPD, with tracheobronchitis #2. Advanced oxygen-dependent, steroid-dependent COPD, baseline FEV1 of 30% of the predicted value, with poor underlying exercise capacity #3. Cat bite of the fourth digit of the left hand, with a break in the skin, was irrigated in the ED of the [facility] on 10/02/2017 and initiated on oral Augmentin #4. History of cavitary lesion of the lung in the right apex, seen on CT chest on 05/29/2017, being followed by Dr. Min. #5. Hyponatremia, possibly hypovolemic, patient describes having diarrhea after initiation of Augmentin at home #6. Essential hypertension #7. Generalized anxiety disorder #8. Degenerative joint disease involving multiple joints #9. Nicotine dependence, ongoing, carries over 55 year smoking history #10. Hypothyroidism Plan: Continue DuoNeb nebulized treatments, continue Symbicort, continue Augmentin. Patient did complain of developing diarrhea at home after Augmentin was initiated. We will gently hydrate her with 0.9 at 50 ML per hour. Repeat BMP in the morning. Local wound care to the open wound from the cat bite. Continue the rest of the medical treatments. I performed a history & physical examination of the patient and discussed their management with my nurse practitioner, Taylor Valdovinos. I reviewed the nurse practitioner's note and agree with the documented findings and plan of care. Lung sounds are positive for diffuse wheezes throughout the lung silva. The findings and the impression was discussed with the patient. I attest to the documentation by the nurse practitioner. Time with Patient: Greater than 30
--- NOTE | 2017-10-04 19:18 | P.PN ---
Progress Note - Text Progress Note Date: 10/04/17 DATE OF SERVICE: 10/04/2017 PRESENTING COMPLAINT: Shortness of breath and wheezing HISTORY OF PRESENT ILLNESS: 67-year-old female with a current smoker became progressively more short of breath cough wheezing white sputum off and on for the previous 2-3 days. No fever, feeling run down poor appetite week tired short of breath. Also sustained a cat bite on the fourth digit of the left hand break in skin, cleaned up in the emergency department at [facility] initiated on oral Augmentin. Admitted for an acute COPD exacerbation. INTERVAL HISTORY: 10/04/2017 Sitting up in bed, appears short of breath at rest, afebrile, up with assistance has a fairly low exercise tolerance, Short of breath with minimal exertion, states she feels better, would like to go home. Does complain of some diarrhea, likely related to antibiotic use. Appetite improving eating between 30 and 50% of her meals. Last BM prior to admission. REVIEW OF SYSTEMS: Done for constitutional ,cardiovascular, GI, pulmonary with relevant findings as above. CURRENT MEDICATIONS DuoNeb, Xanax, Augmentin, bacitracin, Symbicort, Coreg, Lovenox, famotidine, Synthroid, Zestril, Solu-Medrol, nicotine patch, nicotine gum, Paxil, IV fluids , Ultram. PHYSICAL EXAM VITAL SIGNS: Temperature 97.7, pulse 82, respiratory rate 16, blood pressure 129/80, oxygen saturation 96% on 3 L. GENERAL APPEARANCE: Sitting up in bed, anxious appearing. HEENT: Normocephalic, Pupils equal. Conjunctiva normal. JVD not raised. Mass not palpable.: RESPIRATORY: Respiratory effort increased. Lungs diminished bilaterally, expiratory wheezing with prolonged expiration. CARDIOVASCULAR: First and second sounds normal. No edema. ABDOMEN: Soft. Liver and spleen not palpable. No tenderness. No mass palpable. PSYCHIATRY: Alert and oriented x3. Mood and affect somewhat anxious. MUSCULOSKELETAL: Evidence of osteoarthritis especially in the hands. INVESTIGATIONS: Labs: Accu-Cheks noted. ASSESSMENT: -Acute severe chronic obstructive pulmonary disease exacerbation in a current smoker. -Chronic nicotine dependence patient is a cigarette smoker. -Right posterior lung lesion being followed by Dr. Garcia as an outpatient. -Essential hypertension. -Hyperlipidemia. -Hypothyroidism. -Anxiety depression not otherwise specified. -Primary osteoarthritis in multiple joints bilateral. -Hyponatremia likely hypoosmolar PLAN: Continue his bronchodilators, antibiotic therapy and IV fluids. Local wound care to the Bite on her left hand. Plan of care discussed with the patient the bedside, she is in agreement. Discharge planning soon based on patient condition. We will continue to follow closely. SENIOR STATISTICAL PROGRAMMER statement: Patient was seen and examined by nurse practitioner Kylie Dunn and all elements of the case discussed with attending Dr. Millan
[2017-10-04 21:13] LABS: Glucose,Whole Blood 128 mg/dL (75-99)
[2017-10-04] MEDS: BACITRACIN 500 UNIT/GM OINT 28.4 GM TUBE TOPICAL SCH (23:09)
--- NOTE | 2017-10-04 23:25 | PN ---
PROGRESS NOTE DATE OF SERVICE: 10/04/2017 ATTENDING NOTE: Patient seen and examined by me. I discussed with nurse practitioner, Shaun. Admitted with severe COPD exacerbation, still quite a bit of wheezing, cough is present. EXAMINATION: Temperature 96.8, pulse 86, respirations 20, blood pressure 129/76, pulse ox 98% on 2L. LUNGS: Decreased breath sounds. Prolonged expiration, wheezing. CARDIOVASCULAR: First and second sounds normal. No edema. PSYCH: AO x3, some anxious-appearing. INVESTIGATION: Accu-Cheks are noted. ASSESSMENT: 1. Acute severe chronic obstructive pulmonary disease exacerbation in a current smoker, slow to respond. 2. Hyponatremia, likely hypoosmolar. PLAN: Continue current medication and treatment plan. The patient will be in the hospital probably for at least another 2 days, as she slow to respond. The patient is on Augmentin for a cat bite. Continue with nebulized bronchodilators, steroids. Follow. Will fluid restrict the patient to 1500 mL a day and add salt tablets. MMODL / IJN: [id number] /
[2017-10-05 04:10] LABS: Hemoglobin A1C 5.2 % (4.0-6.0)
[2017-10-05] MEDS: IPRATROPIUM-ALBUTEROL 3 ML NEB INHALATION PRN (04:50)
[2017-10-05] MEDS: SODIUM CHLORIDE TAB 1 GM TAB PO SCH ×3 (05:54→13:20)
[2017-10-05] MEDS: methylPREDNISolone SOD SUCCI 125 MG/2 ML VIAL IV SCH ×2 (06:26→13:20)
[2017-10-05] MEDS: LEVOTHYROXINE 50 MCG TAB PO SCH (06:27)
[2017-10-05 07:28] LABS: Glucose,Whole Blood 131 mg/dL (75-99)
[2017-10-05] MEDS: IPRATROPIUM-ALBUTEROL 3 ML NEB INHALATION SCH ×2 (07:28→11:12)
[2017-10-05] MEDS: SYMBICORT 160-4.5 MCG INHALER INHALATION SCH (07:28)
[2017-10-05] MEDS ORDERED: INSULIN ASPART 100 UNIT/ML 1 ML 10 ML VIAL SQ SCH (07:30)
[2017-10-05 08:58] LABS: Anion Gap 9 mmol/L; Blood Urea Nitrogen 22 mg/dL (7-17); Calcium 9.6 mg/dL (8.4-10.2); Carbon Dioxide 25 mmol/L (22-30); Chloride 103 mmol/L (98-107); Glucose 117 mg/dL (74-99); Potassium 4.7 mmol/L (3.5-5.1); Sodium 137 mmol/L (137-145)
[2017-10-05 09:00] LABS: Basophils % (A) 0 %; Eosinophils % (A) 0 %; HCT 40.8 % (34.0-46.0); Lymphocytes # (A) 0.3 k/uL (1.0-4.8); Lymphocytes % (A) 3 %; MCH 30.4 pg (25.0-35.0); MCHC 31.8 g/dL (31.0-37.0); MCV 95.7 fL (80.0-100.0); Mean Platelet Volume 7.6; Monocytes # (A) 0.4 k/uL (0-1.0); Monocytes % (A) 4 %; Neutrophils # (A) 9.7 k/uL (1.3-7.7); Neutrophils % (A) 92 %; Platelet Count 243 k/uL (150-450); RBC 4.27 m/uL (3.80-5.40); RDW 12.9 % (11.5-15.5); WBC 10.5 k/uL (3.8-10.6)
[2017-10-05] MEDS: LISINOPRIL 10 MG TAB PO SCH (09:27)
[2017-10-05] MEDS: PARoxetine 10 MG TAB PO SCH (09:27)
[2017-10-05] MEDS: BACITRACIN 500 UNIT/GM OINT 28.4 GM TUBE TOPICAL SCH (09:28)
[2017-10-05] MEDS: NICOTINE 21MG/24HR PATCH TRANSDERM SCH (09:28)
[2017-10-05] MEDS: ENOXAPARIN 40 MG/0.4 ML SYRINGE SQ SCH (09:28)
[2017-10-05] MEDS: AMOXIC-POT CLAV 875-125MG 1 EACH TAB PO SCH (09:28)
[2017-10-05] MEDS: CARVEDILOL 12.5 MG TAB PO SCH (09:28)
[2017-10-05] MEDS: FAMOTIDINE 20 MG TAB PO SCH (09:28)
[2017-10-05] MEDS: ALPRAZolam 0.25 MG TAB PO SCH (09:31)
[2017-10-05] MEDS ORDERED: LOPERAMIDE 2 MG CAP PO PRN (12:22)
[2017-10-05 12:40] LABS: Glucose,Whole Blood 124 mg/dL (75-99)
[2017-10-05 15:10] VITALS: BP 159/86; PULSE 97; RESP 18; TEMP 97.4
--- NOTE | 2017-10-05 15:37 | P.PN ---
Subjective Progress Note Date: 10/05/17 Principal diagnosis: Acute COPD exacerbation with tracheobronchitis Richelle is a 67-year-old female patient that sees Dr. Min in our office for her history of advanced oxygen-dependent COPD, who presented to the emergency department on 10/03/2017 at 11:00 in the morning with complaints of 3 day history of cough, chills, sneezing, and increasing shortness of breath. Her son is also sick, and has the cold symptoms. She went to see her PCP in [facility], Dr. Gutiérrez, who gave her prednisone 20 mg daily for 5 days, with no improvement in her symptoms. She was seen at [facility] on 10/02/2017 for a cat bite, on her fourth digit of her left hand. The wound was irrigated out, however not sutured, she was given oral Augmentin and sent home. Because of her increasing shortness of breath she presented to the [facility] ED for further evaluation and treatment. On presentation she had a low-grade fever of 100.2F, chest x-ray from 10/03/2017 shows hyperinflation compatible with COPD, chronic scarring in the right upper lobe, but no evidence of acute pulmonary disease. Lab work showed WBC within normal limits, sodium was 127, chloride was 96, carbon dioxide was 20, BUN was 15, creatinine was 0.78, CK-MB was 2.7, troponin was negative 1, influenza screen was negative. Patient was started on IV steroids, DuoNeb nebulized treatments, Symbicort, her Augmentin was continued. Patient reports having loose stools at home, thinks may have started after Augmentin was initiated. On 10/05/2017 patient seen in follow-up. Doing very well, lung sounds are diminished, no rhonchi or wheezes noted. Still has congested cough, but this has improved. Remains on 3 L per nasal cannula with O2 sat 95%. Afebrile, vital signs are stable. Denies any acute complaints, no significant events overnight. Today's lab work reveals WBC of 10.5, hemoglobin of 13, serum sodium has improved, up to 137, potassium is 4.7, BUN is 22, creatinine 0.68. C. diff was negative. Patient has been get up and ambulating in the room, tolerating activity very well, requesting to be discharged home today. From pulmonary standpoint she is stable for discharge home today. She will need follow-up with Dr. Garcia in the office in one week. Objective - Vital Signs Vital signs: Vital Signs Temp 97.4 F L 10/05/17 15:00 Pulse 97 10/05/17 15:00 Resp 18 10/05/17 15:00 BP 159/86 10/05/17 15:00 Pulse Ox 95 10/05/17 15:00 Intake & Output 10/04/17 10/05/17 10/05/17 18:59 06:59 18:59 Intake Total 925 Balance 925 Intake: Oral 925 Other: # Voids 3 3 3 # Bowel Movements 1 - Exam GENERAL EXAM: Alert, pleasant, 67-year-old white female comfortable in no apparent distress. HEAD: Normocephalic/atraumatic. EYES: Normal reaction of pupils, equal size. Conjunctiva pink, sclera white. NOSE: Clear with pink turbinates. THROAT: No erythema or exudates. NECK: No masses, no JVD, no thyroid enlargement, no adenopathy. CHEST: No chest wall deformity. Symmetrical expansion. LUNGS: Equal air entry, diminished, but no wheezes appreciated. CVS: Regular rate and rhythm, normal S1 and S2, no gallops, no murmurs, no rubs ABDOMEN: Soft, nontender. No hepatosplenomegaly, normal bowel sounds, no guarding or rigidity. EXTREMITIES: No clubbing, no edema, no cyanosis, 2+ pulses and upper and lower extremities. MUSCULOSKELETAL: Muscle strength and tone normal. SPINE: No scoliosis or deformity SKIN: No rashes CENTRAL NERVOUS SYSTEM: Alert and oriented -3. No focal deficits, tone is normal in all 4 extremities. PSYCHIATRIC: Alert and oriented -3. Appropriate affect. Intact judgment and insight. - Labs CBC & Chem 7: 10/05/17 07:57 10/05/17 07:57 Labs: Abnormal Lab Results - Last 24 Hours (Table) 10/04/17 10/04/17 10/05/17 Range/Units 17:07 21:12 07:25 Neutrophils # (1.3-7.7) k/uL Lymphocytes # (1.0-4.8) k/uL BUN (7-17) mg/dL Glucose (74-99) mg/dL POC Glucose (mg/dL) 147 H 128 H 131 H (75-99) mg/dL 10/05/17 10/05/17 10/05/17 Range/Units 07:57 07:57 12:33 Neutrophils # 9.7 H (1.3-7.7) k/uL Lymphocytes # 0.3 L (1.0-4.8) k/uL BUN 22 H (7-17) mg/dL Glucose 117 H (74-99) mg/dL POC Glucose (mg/dL) 124 H (75-99) mg/dL Microbiology - Last 24 Hours (Table) 10/03/17 11:41 Blood Culture - Preliminary Blood No Growth after 48 hours Assessment and Plan Plan: Assessment: #1. Acute exacerbation of COPD, with tracheobronchitis, improving #2. Advanced oxygen-dependent, steroid-dependent COPD, baseline FEV1 of 30% of the predicted value, with poor underlying exercise capacity #3. Cat bite of the fourth digit of the left hand, with a break in the skin, was irrigated in the ED of the [facility] on 10/02/2017 and initiated on oral Augmentin #4. History of cavitary lesion of the lung in the right apex, seen on CT chest on 05/29/2017, being followed by Dr. Min. #5. Hyponatremia, possibly hypovolemic, patient describes having diarrhea after initiation of Augmentin at home. This has improved, serum sodium today is up to 137, from 127 on 10/03/2017. Patient was gently rehydrated overnight with 0.9 normal saline at 50 mL an hour #6. Essential hypertension #7. Generalized anxiety disorder #8. Degenerative joint disease involving multiple joints #9. Nicotine dependence, ongoing, carries over 55 year smoking history #10. Hypothyroidism Plan: Continue DuoNeb nebulized treatments, continue Symbicort, continue Augmentin. Overall there has been significant improvement in her condition, improved dyspnea, no wheezes on today's exam. We will switch the IV steroids to oral prednisone. She would like to go home today, from pulmonary standpoint she can be discharged home today, she will need follow-up appointment with Dr. Garcia in the office in one week I performed a history & physical examination of the patient and discussed their management with my nurse practitioner, Taylor Valdovinos. I reviewed the nurse practitioner's note and agree with the documented findings and plan of care. Lung sounds are diminished. The findings and the impression was discussed with the patient. I attest to the documentation by the nurse practitioner. Time with Patient: Less than 30
--- NOTE | 2017-10-05 17:14 | DS ---
DISCHARGE SUMMARY DATE OF ADMISSION: 10/03/2017. DATE OF DISCHARGE: 10/05/2017 FINAL DIAGNOSES: 1. Acute severe chronic obstructive pulmonary disease exacerbation in a current smoker from acute tracheobronchitis. 2. Cat bite, on Augmentin from outpatient. 3. Chronic nicotine dependence. Patient is an active cigarette smoker. 4. Right posterior lung lesion, being followed by Dr. Min as an outpatient. 5. Essential hypertension. 6. Hyperlipidemia. 7. Hypothyroidism. 8. Anxiety, depression not otherwise specified. 9. Primary osteoarthritis in multiple joints, bilateral. 10.Hyponatremia, likely hypo-osmolar. HOSPITAL COURSE: This is a patient who presented with severe COPD exacerbation, acute tracheobronchitis. Doing much better at the time of discharge. The patient was counseled extensively about smoking cessation. PHYSICAL EXAMINATION: LUNGS: Decreased breath sounds. CARDIOVASCULAR: First and second sounds normal. DISCHARGE MEDICATIONS: 1. Xanax 0.25 p.o. b.i.d. 2. Ventolin HFA 2 puffs q.4 p.r.n. 3. Symbicort 160/4.5 two puffs b.i.d. 4. Synthroid 50 mcg p.o. daily. 5. Coreg 12.5 p.o. b.i.d. 6. Prinivil 10 mg p.o. daily. 7. Paxil 10 mg p.o. daily. 8. Prednisone 2.5 mg daily to start when taper is done. 9. Ultram 50 mg p.o. t.i.d. p.r.n. 10.Pepcid 20 mg b.i.d. 11.DuoNeb q.i.d. 12.Augmentin 875/125, complete course. 13.Bacitracin topically b.i.d. 14.Nicotine patch. 15.Nicorette gum p.r.n. 16.Prednisone taper. Follow up with Dr. Min in 1 week. Discussion and discharge planning more than 35 minutes. MMODL / IJN: [id number] /
[2017-10-06] MEDS ORDERED: predniSONE 20 MG TAB PO SCH (09:00)
== END 2017-10-05 16:24 | disposition home or self-care (01) | DRG 191 ==
LOC: EC 11:11 → 4MS4W 13:33
PROVIDERS: ADMIT Hospitalist; ATTEND Hospitalist
DX: J44.1 Chronic obstructive pulmonary disease with (acute) exacerbation (principal); E87.1 Hypo-osmolality and hyponatremia; Z99.81 Dependence on supplemental oxygen; E03.9 Hypothyroidism, unspecified; J20.9 Acute bronchitis, unspecified; F32.9 Major depressive disorder, single episode, unspecified; R91.1 Solitary pulmonary nodule; E86.1 Hypovolemia; T36.95XA Adverse effect of unspecified systemic antibiotic, initial encounter; J44.0 Chronic obstructive pulmonary disease with (acute) lower respiratory infection; E78.5 Hyperlipidemia, unspecified; F17.210 Nicotine dependence, cigarettes, uncomplicated; F41.1 Generalized anxiety disorder; I10 Essential (primary) hypertension; M15.9 Polyosteoarthritis, unspecified; R19.7 Diarrhea, unspecified; S61.255A Open bite of left ring finger without damage to nail, initial encounter; Z79.51 Long term (current) use of inhaled steroids; Z79.52 Long term (current) use of systemic steroids; Z79.899 Other long term (current) drug therapy; Z85.828 Personal history of other malignant neoplasm of skin; Z88.5 Allergy status to narcotic agent; Z71.6 Tobacco abuse counseling; Z82.49 Family history of ischemic heart disease and other diseases of the circulatory system; W55.01XA Bitten by cat, initial encounter; Y92.9 Unspecified place or not applicable
CPT/HCPCS: 36415; 71046; 80048; 80053; 82550; 82553; 83036; 83605; 83735; 83930; 84484; 85025; 85610; 85730; 87040; 87324; 87502; 94640; 94760; 96374; 99285

== ENCOUNTER 2018-06-17 16:23 | Inpatient (IN) | payer MEDICARE, OTHER ==
[2018-06-17] MEDS ORDERED: SODIUM CHLORIDE 0.9% 1,000 ML IV STA ×2 (17:56)
--- NOTE | 2018-06-17 18:02 | ED ---
SOB HPI - General Chief Complaint: Shortness of Breath Stated Complaint: diff breathing,cough blood Time Seen by Provider: 06/17/18 17:49 Source: patient, RN notes reviewed, old records reviewed Mode of arrival: ambulatory Limitations: no limitations - History of Present Illness Initial Comments: 67 Sch[place] female presents emergency Department chief complaint of shortness of breath as well as coughing up blood. She reports she's had by her PCP and her conservation scientist within the month and they were told her she has muscle skeletal related chest pain. Patient states that she has been using her inhalers as prescribed. She also reports that she does have a lesion on her lungs she does not know which one. Patient reports that she's had increased shortness of breath worsening over the past few days. She arrived to the emergency department without her portable oxygen. - Related Data Home Medications Medication Instructions Recorded Confirmed ALPRAZolam [Xanax] 0.25 mg PO BID 10/08/16 06/17/18 Albuterol Inhaler [Ventolin Hfa 2 puff INHALATION RT-QID 10/08/16 06/17/18 Inhaler] Budesonide/Formoterol Fumarate 2 puff INHALATION RT-BID 10/08/16 06/17/18 [Symbicort 160-4.5 Mcg Inhaler] Levothyroxine Sodium [Synthroid] 50 mcg PO DAILY 10/08/16 06/17/18 Furosemide [Lasix] 20 mg PO DAILY PRN 06/17/18 06/17/18 predniSONE 5 mg PO DAILY 06/17/18 06/17/18 Previous Rx's Medication Instructions Recorded Carvedilol [Coreg] 12.5 mg PO BID #60 tablet 10/11/16 Lisinopril [Prinivil] 10 mg PO DAILY #30 tab 10/11/16 PARoxetine HCL [Paxil] 10 mg PO DAILY #30 tab 10/11/16 Ipratropium-Albuterol Nebulize 3 ml INHALATION RT-QID #120 neb 05/30/17 [Duoneb 0.5 mg-3 mg/3 ml Soln] Allergies Allergy/AdvReac Type Severity Reaction Status Date / Time codeine AdvReac Severe Dizziness Verified 06/17/18 18:47 Review of Systems ROS Statement: Those systems with pertinent positive or pertinent negative responses have been documented in the HPI. ROS Other: All systems not noted in ROS Statement are negative. Past Medical History Past Medical History: Cancer, Chest Pain / Angina, COPD, Hyperlipidemia, Hypertension, Osteoarthritis (OA), Thyroid Disorder Additional Past Medical History / Comment(s): arthritis, skin cancer," spot on lung- dr mclean follwing up", home o2 2 liters at rest 3 liters w/ activity. History of Any Multi-Drug Resistant Organisms: None Reported Past Surgical History: Adenoidectomy, Cholecystectomy, Tonsillectomy, Tubal Ligation Additional Past Surgical History / Comment(s): pt is scheduled for right hipm replacement in June 2017 Past Anesthesia/Blood Transfusion Reactions: Motion Sickness Additional Past Anesthesia/Blood Transfusion Reaction / Comment(s): had blood transfusion age 7 after tonsil sx-no known reaction to it. pt stated i was supposed to have hip sx but told unable to luns are too bad to go thru sx" Past Psychological History: Anxiety, Depression Smoking Status: Former smoker Past Alcohol Use History: None Reported Past Drug Use History: None Reported - Past Family History Mother Family Medical History: Myocardial Infarction (HI) Father Family Medical History: Myocardial Infarction (HI) General Exam - General Exam Comments Initial Comments: 67-year-old female. Alert and oriented. No significant distress. Limitations: no limitations General appearance: alert, in no apparent distress Head exam: Present: atraumatic, normocephalic, normal inspection Eye exam: Present: normal appearance, PERRL, EOMI. Absent: scleral icterus, conjunctival injection, periorbital swelling ENT exam: Present: normal exam, normal oropharynx, mucous membranes moist Neck exam: Present: normal inspection. Absent: tenderness, meningismus, lymphadenopathy Respiratory exam: Present: chest wall tenderness, decreased breath sounds ( Decreased right upper lung sounds.), other (Patient is extremely tender to palpation over the right breast.). Absent: normal lung sounds bilaterally, respiratory distress, rales, rhonchi, stridor Cardiovascular Exam: Present: regular rate, normal rhythm, normal heart sounds. Absent: systolic murmur, diastolic murmur, rubs, gallop, clicks GI/Abdominal exam: Present: soft, normal bowel sounds. Absent: distended, tenderness, guarding, rebound, rigid Extremities exam: Present: normal inspection, full ROM, normal capillary refill. Absent: tenderness, pedal edema, joint swelling, calf tenderness Back exam: Present: normal inspection Neurological exam: Present: alert, oriented X3, CN II-XII intact Psychiatric exam: Present: normal affect, normal mood Course Vital Signs 06/17/18 06/17/18 06/17/18 17:37 17:54 19:26 Temperature 98.3 F Pulse Rate 78 101 H Respiratory 22 18 30 H Rate Blood Pressure 153/75 204/91 O2 Sat by Pulse 96 96 Oximetry Medical Decision Making - Medical Decision Making 67-year-old female presents today with right-sided chest pain, hemoptysis for the past 3 weeks. She reports she was seen by PCP and conservation scientist informed of this muscle skeletal pain. She is quite tender on exam of her right chest wall. Lung sounds are diminished. She did have a productive cough with yellow brownish and bright red sputum. Blood work was obtained. EKG was negative for any acute process. Patient's troponin was within normal limits. D-dimer is mildly elevated at 1.1. Chest x-ray showed evidence of pneumonic infiltrate over the right upper lung field. We did complete a computed tomography scan. There is evidence of a cavitating lesion over the right upper lung field consistent with tumor. Patient will be given breathing treatments, and IV pain medication and she is quite tender to palpation and appears in discomfort. We will admit the Patient with consults to her conservation scientist. Patient understands treatment plan. - Lab Data Result diagrams: 06/17/18 18:05 06/17/18 18:05 Lab Results 06/17/18 06/17/18 06/17/18 Range/Units 18:05 18:05 18:05 WBC 8.8 (3.8-10.6) k/uL RBC 4.51 (3.80-5.40) m/uL Hgb 12.6 (11.4-16.0) gm/dL Hct 39.2 (34.0-46.0) % MCV 87.0 (80.0-100.0) fL MCH 27.9 (25.0-35.0) pg MCHC 32.1 (31.0-37.0) g/dL RDW 13.8 (11.5-15.5) % Plt Count 394 (150-450) k/uL Neutrophils % 73 % Lymphocytes % 17 % Monocytes % 7 % Eosinophils % 1 % Basophils % 1 % Neutrophils # 6.4 (1.3-7.7) k/uL Lymphocytes # 1.4 (1.0-4.8) k/uL Monocytes # 0.6 (0-1.0) k/uL Eosinophils # 0.1 (0-0.7) k/uL Basophils # 0.1 (0-0.2) k/uL PT (9.0-12.0) sec INR (<1.2) APTT (22.0-30.0) sec D-Dimer (<0.60) mg/L FEU Sodium 137 (137-145) mmol/L Potassium 4.2 (3.5-5.1) mmol/L Chloride 101 (98-107) mmol/L Carbon Dioxide 26 (22-30) mmol/L Anion Gap 10 mmol/L BUN 16 (7-17) mg/dL Creatinine 0.77 (0.52-1.04) mg/dL Est GFR (CKD-EPI)AfAm >90 (>60 ml/min/1.73 sqM) Est GFR (CKD-EPI)NonAf 81 (>60 ml/min/1.73 sqM) Glucose 95 (74-99) mg/dL Calcium 10.2 (8.4-10.2) mg/dL Magnesium 1.6 (1.6-2.3) mg/dL Total Bilirubin 0.6 (0.2-1.3) mg/dL AST 19 (14-36) U/L ALT 19 (9-52) U/L Alkaline Phosphatase 86 (38-126) U/L Total Creatine Kinase 26 L (30-135) U/L CK-MB (CK-2) 1.3 (0.0-2.4) ng/mL CK-MB (CK-2) Rel Index 5.0 Troponin I 0.014 (0.000-0.034) ng/mL Total Protein 8.0 (6.3-8.2) g/dL Albumin 4.1 (3.5-5.0) g/dL 06/17/18 Range/Units 18:05 WBC (3.8-10.6) k/uL RBC (3.80-5.40) m/uL Hgb (11.4-16.0) gm/dL Hct (34.0-46.0) % MCV (80.0-100.0) fL MCH (25.0-35.0) pg MCHC (31.0-37.0) g/dL RDW (11.5-15.5) % Plt Count (150-450) k/uL Neutrophils % % Lymphocytes % % Monocytes % % Eosinophils % % Basophils % % Neutrophils # (1.3-7.7) k/uL Lymphocytes # (1.0-4.8) k/uL Monocytes # (0-1.0) k/uL Eosinophils # (0-0.7) k/uL Basophils # (0-0.2) k/uL PT 9.5 (9.0-12.0) sec INR 0.9 (<1.2) APTT 20.4 L (22.0-30.0) sec D-Dimer 1.10 H (<0.60) mg/L FEU Sodium (137-145) mmol/L Potassium (3.5-5.1) mmol/L Chloride (98-107) mmol/L Carbon Dioxide (22-30) mmol/L Anion Gap mmol/L BUN (7-17) mg/dL Creatinine (0.52-1.04) mg/dL Est GFR (CKD-EPI)AfAm (>60 ml/min/1.73 sqM) Est GFR (CKD-EPI)NonAf (>60 ml/min/1.73 sqM) Glucose (74-99) mg/dL Calcium (8.4-10.2) mg/dL Magnesium (1.6-2.3) mg/dL Total Bilirubin (0.2-1.3) mg/dL AST (14-36) U/L ALT (9-52) U/L Alkaline Phosphatase (38-126) U/L Total Creatine Kinase (30-135) U/L CK-MB (CK-2) (0.0-2.4) ng/mL CK-MB (CK-2) Rel Index Troponin I (0.000-0.034) ng/mL Total Protein (6.3-8.2) g/dL Albumin (3.5-5.0) g/dL 06/17/18 18:44 EKG performed at 1820 shows normal sinus rhythm normal EKG. Ventricular rate of 77 bpm.. Intervals 140 ms. QRS ration 72. QT QTC 372/420 ms. - Radiology Data Radiology results: report reviewed Increasing pneumonic infiltrate in the posterior segment of the right upper lobe compared to last exam. Underlying COPD. Follow-up is recommended show clearing instability. No evidence of pulmonary embolism. Evidence of Cavitating right upper lung mass consistent with tumor. Mediastinal and broccoli adenopathy. Left adrenal nodule stable. A computed tomography scan of 05/29/2017. Disposition Clinical Impression: Dyspnea, Lung tumor Disposition: ADMITTED IP TO THIS HOSP Condition: Good Is patient prescribed a controlled substance at d/c from ED?: No Referrals: Brock Hill DO [Primary Care Provider] - 1-2 days Time of Disposition: 20:17
[2018-06-17 18:24] LABS: Basophils # (A) 0.1 k/uL (0-0.2); Basophils % (A) 1 %; Eosinophils # (A) 0.1 k/uL (0-0.7); Eosinophils % (A) 1 %; HCT 39.2 % (34.0-46.0); HGB 12.6 gm/dL (11.4-16.0); Lymphocytes # (A) 1.4 k/uL (1.0-4.8); Lymphocytes % (A) 17 %; MCH 27.9 pg (25.0-35.0); MCHC 32.1 g/dL (31.0-37.0); Mean Platelet Volume 7.1; Monocytes # (A) 0.6 k/uL (0-1.0); Monocytes % (A) 7 %; Neutrophils # (A) 6.4 k/uL (1.3-7.7); Neutrophils % (A) 73 %; Platelet Count 394 k/uL (150-450); RBC 4.51 m/uL (3.80-5.40); RDW 13.8 % (11.5-15.5); WBC 8.8 k/uL (3.8-10.6)
[2018-06-17 18:35] LABS: ALT 19 U/L (9-52); AST 19 U/L (14-36); Albumin 4.1 g/dL (3.5-5.0); Alkaline Phosphatase 86 U/L (38-126); Anion Gap 10 mmol/L; Blood Urea Nitrogen 16 mg/dL (7-17); Calcium 10.2 mg/dL (8.4-10.2); Carbon Dioxide 26 mmol/L (22-30); Chloride 101 mmol/L (98-107); Glucose 95 mg/dL (74-99); Magnesium 1.6 mg/dL (1.6-2.3); Potassium 4.2 mmol/L (3.5-5.1); Sodium 137 mmol/L (137-145); Total Bilirubin 0.6 mg/dL (0.2-1.3)
--- NOTE | 2018-06-17 18:46 | XR ---
EXAMINATION TYPE: XR chest 2V DATE OF EXAM: 06/17/2018 COMPARISON: 10/03/2017 HISTORY: Difficulty breathing. Coughing up blood. TECHNIQUE: Frontal and lateral views of the chest are obtained. FINDINGS: There is some patchy consolidation in the medial right upper lobe. This is in an area of s ome emphysematous change. Heart size is normal. The other lung silva are clear. Bony thorax appears intact. There are no hilar masses. Mediastinum appears normal. IMPRESSION: There is increasing pneumonic infiltrate in the posterior segment right upper lobe chad red to last exam. There is probably COPD. Follow-up is recommended show clearing and stability.
[2018-06-17 18:47] LABS: INR 0.9 (<1.2); Partial Thromboplastin Time 20.4 sec (22.0-30.0); Prothrombin Time 9.5 sec (9.0-12.0)
[2018-06-17 18:57] LABS: Creatine Kinase MB 1.3 ng/mL (0.0-2.4); D-Dimer 1.1 mg/L FEU (<0.60); Troponin I 0.014 ng/mL (0.000-0.034)
[2018-06-17] MEDS ORDERED: CARVEDILOL 12.5 MG TAB PO STA (19:29)
--- NOTE | 2018-06-17 19:40 | CT ---
EXAMINATION TYPE: CT chest angio for PE DATE OF EXAM: 06/17/2018 COMPARISON: None HISTORY: Chest pain CT DLP: mGycm Automated exposure control for dose reduction was used. CONTRAST: CT Chest for pulmonary embolism performed with , patient injected with 80 mL of . Isovue FINDINGS: There is 5.5 cm rounded irregular area of masslike consolidation in the posterior segment right upper lobe. There is central cavitation. There are are enlarged right bronchial lymph nodes up to 1.5 cm. There is enlargement 1.5 cm pretracheal lymph node. There is normal contrast opacification of the pulmonary arteries. There are no filling defects. Thora cic aorta is atheromatous. There is no evidence of thoracic aortic aneurysm or dissection. Heart size is normal. There is 1 cm left bronchial lymph node. There is no pericardial effusion. The bony thora x appears intact. There is a 1.5 cm hypodense nodule left adrenal gland. IMPRESSION: No evidence of pulmonary embolism. Cavitating right upper lobe mass consistent with tumor. Mediastinal and bronchial adenopathy. Left ad renal nodule is stable compared to CT scan of 05/29/2017.
[2018-06-17] MEDS ORDERED: IPRATROPIUM-ALBUTEROL 3 ML NEB INHALATION STA (19:57)
[2018-06-17] MEDS ORDERED: MORPHINE SULFATE 4 MG/ML SYRINGE IVP STA (19:57)
[2018-06-17] MEDS ORDERED: IBUPROFEN 400 MG TAB PO PRN (20:17)
[2018-06-17] MEDS ORDERED: NALOXONE 0.4 MG/ML 1 ML VIAL IV PRN (20:17)
[2018-06-17] MEDS ORDERED: KETOROLAC 30 MG/ML 1 ML VIAL IVP PRN (20:17)
[2018-06-17] MEDS ORDERED: LORazepam 2 MG/ML INJ IV PRN (20:17)
[2018-06-17] MEDS ORDERED: ONDANSETRON 4 MG/2 ML VIAL IVP PRN (20:17)
[2018-06-17] MEDS ORDERED: ACETAMINOPHEN TAB 325 MG TAB PO PRN (20:17)
[2018-06-18] MEDS: SODIUM CHLORIDE 0.9% 1,000 ML IV SCH ×2 (00:42→04:45)
[2018-06-18 03:30] VITALS: BMI 28.3
[2018-06-18] MEDS: MORPHINE SULFATE 4 MG/ML SYRINGE IV PRN ×3 (04:44→20:41)
[2018-06-18] MEDS: SYMBICORT 160-4.5 MCG INHALER INHALATION SCH ×2 (07:28→20:21)
[2018-06-18] MEDS: IPRATROPIUM-ALBUTEROL 3 ML NEB INHALATION SCH ×4 (07:29→20:21)
[2018-06-18] MEDS ORDERED: PANTOPRAZOLE 40 MG/10 ML VIAL IV SCH (09:00)
[2018-06-18] MEDS ORDERED: ALPRAZolam 0.25 MG TAB PO PRN (10:11)
--- NOTE | 2018-06-18 10:48 | P.HPIM ---
History of Present Illness 67-year-old female with advanced COPD, gold stage IV uses 2-3 L of oxygen at home came in with complaints of shortness of breath is having wheezing complaining of hemoptysis. Patient has a right upper lobe mass which was known and is being followed as an outpatient. Patient had a CAT scan of the chest which mostly showed infiltrate very minimal air bronchogram. Although patient doesn't have any fever doesn't have any leukocytosis clinically does not appear to have pneumonia. Patient the is still not up to her baseline. She is also complaining of chest pain musculoskeletal secondary to coughing and from her mass, facet of troponin is negative. Patient's d-dimer is bit elevated which is a nonspecific test there is no palmar embolism on the CAT scan. Patient is also complaining of clear phlegm production with hemoptysis. Review of Systems REVIEW OF SYSTEMS: CONSTITUTIONAL: No fever, no malaise, no fatigue. HEENT: No recent visual problems or hearing problems. Denied any sore throat. CARDIOVASCULAR: No chest pain, orthopnea, PND, no palpitations, no syncope. PULMONARY: As mentioned in HPI GASTROINTESTINAL: No diarrhea, no nausea, no vomiting, no abdominal pain. Normoactive bowel sounds. NEUROLOGICAL: No headaches, no weakness, no numbness. HEMATOLOGICAL: Denies any bleeding or petechiae. GENITOURINARY: Denies any burning micturition, frequency, or urgency. MUSCULOSKELETAL/RHEUMATOLOGICAL: Denies any joint pain, swelling, or any muscle pain. ENDOCRINE: Denies any polyuria or polydipsia. The rest of the 14-point review of systems is negative. Past Medical History Past Medical History: Cancer, Chest Pain / Angina, COPD, Hyperlipidemia, Hypertension, Osteoarthritis (OA), Thyroid Disorder Additional Past Medical History / Comment(s): arthritis, skin cancer," spot on lung- dr caridad grigsbywing up", home o2 2 liters at rest 3 liters w/ activity. History of Any Multi-Drug Resistant Organisms: None Reported Past Surgical History: Adenoidectomy, Cholecystectomy, Tonsillectomy, Tubal Ligation Additional Past Surgical History / Comment(s): pt is scheduled for right hipm replacement in June 2017 Past Anesthesia/Blood Transfusion Reactions: Motion Sickness Additional Past Anesthesia/Blood Transfusion Reaction / Comment(s): had blood transfusion age 7 after tonsil sx-no known reaction to it. pt stated i was supposed to have hip sx but told unable to lungs are too bad to go thru sx" Past Psychological History: Anxiety, Depression Additional Psychological History / Comment(s): stated feels well maintained on meds. pt lives alone in apt has 3 [address]. has 02 and nebulizer. no home care services received. Smoking Status: Former smoker Past Alcohol Use History: None Reported Additional Past Alcohol Use History / Comment(s): started smoking at age 11 smokes 1.5 ppd Past Drug Use History: None Reported - Past Family History Mother Family Medical History: Myocardial Infarction (VT) Father Family Medical History: Myocardial Infarction (VT) Medications and Allergies Home Medications Medication Instructions Recorded Confirmed Type ALPRAZolam [Xanax] 0.25 mg PO BID 10/08/16 06/17/18 History Albuterol Inhaler [Ventolin Hfa 2 puff INHALATION RT-QID 10/08/16 06/17/18 History Inhaler] Budesonide/Formoterol Fumarate 2 puff INHALATION RT-BID 10/08/16 06/17/18 History [Symbicort 160-4.5 Mcg Inhaler] Levothyroxine Sodium [Synthroid] 50 mcg PO DAILY 10/08/16 06/17/18 History Carvedilol [Coreg] 12.5 mg PO BID #60 tablet 10/11/16 06/17/18 Rx Lisinopril [Prinivil] 10 mg PO DAILY #30 tab 10/11/16 06/17/18 Rx PARoxetine HCL [Paxil] 10 mg PO DAILY #30 tab 10/11/16 06/17/18 Rx Ipratropium-Albuterol Nebulize 3 ml INHALATION RT-QID #120 neb 05/30/17 Rx [Duoneb 0.5 mg-3 mg/3 ml Soln] Furosemide [Lasix] 20 mg PO DAILY PRN 06/17/18 06/17/18 History predniSONE 5 mg PO DAILY 06/17/18 06/17/18 History Allergies Allergy/AdvReac Type Severity Reaction Status Date / Time codeine AdvReac Severe Dizziness Verified 06/17/18 18:47 Physical Exam Vitals: Vital Signs Temp Pulse Pulse Resp BP BP Pulse Ox 06/18/18 07:46 84 06/18/18 07:30 99 06/18/18 06:08 98.5 F 84 16 149/72 99 06/17/18 21:42 98.1 F 87 17 162/84 96 06/17/18 20:29 97.9 F 104 H 24 168/86 96 06/17/18 20:25 96 22 06/17/18 19:26 101 H 30 H 204/91 96 06/17/18 17:54 18 06/17/18 17:37 98.3 F 78 22 153/75 96 Intake and Output 06/17/18 06/18/18 06/18/18 22:59 06:59 14:59 Intake Total 480 1420 Balance 480 1420 Intake: Intake, IV Titration 800 Amount Sodium Chloride 0.9% 1, 800 000 ml @ 100 mls/hr IV . Q10H EARLINE Rx#:[id number] Oral 480 620 Other: # Voids 1 1 1 Weight 65.771 kg 65.771 kg PHYSICAL EXAMINATION: GENERAL: The patient is alert and oriented x3, not in any acute distress. Well developed, well nourished. HEENT: Pupils are round and equally reacting to light. EOMI. No scleral icterus. No conjunctival pallor. Normocephalic, atraumatic. No pharyngeal erythema. No thyromegaly. CARDIOVASCULAR: S1 and S2 present. No murmurs, rubs, or gallops. PULMONARY: Decreased air entry with the expiratory wheezing on exam reproducible chest pain. ABDOMEN: Soft, nontender, nondistended, normoactive bowel sounds. No palpable organomegaly. MUSCULOSKELETAL: No joint swelling or deformity. EXTREMITIES: No cyanosis, clubbing, or pedal edema. NEUROLOGICAL: Gross neurological examination did not reveal any focal deficits. SKIN: No rashes. Results CBC & Chem 7: 06/17/18 18:05 06/17/18 18:05 Labs: Abnormal Lab Results - Last 24 Hours (Table) 06/17/18 06/17/18 Range/Units 18:05 18:05 APTT 20.4 L (22.0-30.0) sec D-Dimer 1.10 H (<0.60) mg/L FEU Total Creatine Kinase 26 L (30-135) U/L Thrombosis Risk Factor Assmnt - Choose All That Apply Each Factor Represents 1 point: Obesity (BMI >25) Other Risk Factors: Yes Each Risk Factor Represents 2 Points: Age 61-74 years Thrombosis Risk Factor Assessment Total Risk Factor Score: 3 Thrombosis Risk Factor Assessment Level: Moderate Risk Assessment and Plan Plan: -Shortness of breath and acute on chronic hypercapnic respiratory failure secondary to COPD exacerbation patient will be started on oral steroids Augmentin for bronchitis and hemoptysis. Continue with inhalational treatments -Lung mass: Follow-up as an outpatient Dr. Min and biopsy as an outpatient -Chest pain musculoskeletal reproducible. -Hypertension -Hyperlipidemia -Hypothyroidism -Former smoker quit smoking in September -Depression For above-mentioned chronic medical problems patient will be resumed and continued on appropriate home medications
[2018-06-18] MEDS: predniSONE 20 MG TAB PO SCH (11:05)
[2018-06-18] MEDS: AMOXIC-POT CLAV 875-125MG 1 EACH TAB PO SCH ×2 (11:05→20:41)
--- NOTE | 2018-06-18 11:36 | P.CNPUL ---
History of Present Illness Consult date: 06/18/18 Reason for consult: dyspnea, cough, COPD, hypoxemia, pneumonia, lung mass, abnormal CXR/CT Chief complaint: Shortness of breath and hemoptysis, abnormal chest x-ray/CAT scan History of present illness: Pulmonary consult dated 06/18/2018 This is a 67-year-old female who sees a Dr. 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 The patient apparently has a mass in the right upper lobe, posterior segment which over the course of months has gotten much larger and is cavitating. The patient likely has either a cavitating infection and/or lung cancer. She was a heavy smoker in the past. Her more recent computed tomography scan was done in 2016 and the lesion was much smaller. In addition, she has significant adenopathy within the hilum and mediastinum consistent with malignancy. Anyway, her primary complaints included shortness of breath chest congestion cough and hemoptysis. She would be a very poor candidate for a procedure. It certainly could be done but she is not excited about having it done. She apparently was told by my partner recently that a hip surgery that she was planning to have with the very risky at best. My plan for her would be to improve her lung function in her pulmonary symptoms and sent her back to my partner for his opinion. She apparently was told by him that she has stage IV very severe disease. Her medications at home for her breathing include albuterol inhaler, Symbicort, high-dose and daily prednisone. She apparently also has oxygen and a nebulizer machine. She apparently has a history of hyperlipidemia hypertension angina pectoris hypothyroidism skin cancer and DJD. Review of Systems A 14 point review of system is positive for shortness of breath chest tightness wheezing coughing chest congestion and phlegm production. In addition, she is coughing up some bright red blood. No fever or chills. Some chest pain in the right upper chest area. Past Medical History Past Medical History: Cancer, Chest Pain / Angina, COPD, Hyperlipidemia, Hypertension, Osteoarthritis (OA), Thyroid Disorder Additional Past Medical History / Comment(s): arthritis, skin cancer," spot on lung- dr min follwing up", home o2 2 liters at rest 3 liters w/ activity. History of Any Multi-Drug Resistant Organisms: None Reported Past Surgical History: Adenoidectomy, Cholecystectomy, Tonsillectomy, Tubal Ligation Additional Past Surgical History / Comment(s): pt is scheduled for right hipm replacement in June 2017 Past Anesthesia/Blood Transfusion Reactions: Motion Sickness Additional Past Anesthesia/Blood Transfusion Reaction / Comment(s): had blood transfusion age 7 after tonsil sx-no known reaction to it. pt stated i was supposed to have hip sx but told unable to lungs are too bad to go thru sx" Past Psychological History: Anxiety, Depression Additional Psychological History / Comment(s): stated feels well maintained on meds. pt lives alone in apt has 3 [address]. has 02 and nebulizer. no home care services received. Smoking Status: Former smoker Past Alcohol Use History: None Reported Additional Past Alcohol Use History / Comment(s): started smoking at age 11 smokes 1.5 ppd Past Drug Use History: None Reported - Past Family History Mother Family Medical History: Myocardial Infarction ([place]) Father Family Medical History: Myocardial Infarction ([place]) Medications and Allergies Home Medications Medication Instructions Recorded Confirmed Type ALPRAZolam [Xanax] 0.25 mg PO BID 10/08/16 06/17/18 History Albuterol Inhaler [Ventolin Hfa 2 puff INHALATION RT-QID 10/08/16 06/17/18 History Inhaler] Budesonide/Formoterol Fumarate 2 puff INHALATION RT-BID 10/08/16 06/17/18 History [Symbicort 160-4.5 Mcg Inhaler] Levothyroxine Sodium [Synthroid] 50 mcg PO DAILY 10/08/16 06/17/18 History Carvedilol [Coreg] 12.5 mg PO BID #60 tablet 10/11/16 06/17/18 Rx Lisinopril [Prinivil] 10 mg PO DAILY #30 tab 10/11/16 06/17/18 Rx PARoxetine HCL [Paxil] 10 mg PO DAILY #30 tab 10/11/16 06/17/18 Rx Ipratropium-Albuterol Nebulize 3 ml INHALATION RT-QID #120 neb 05/30/17 Rx [Duoneb 0.5 mg-3 mg/3 ml Soln] Furosemide [Lasix] 20 mg PO DAILY PRN 06/17/18 06/17/18 History predniSONE 5 mg PO DAILY 06/17/18 06/17/18 History Allergies Allergy/AdvReac Type Severity Reaction Status Date / Time codeine AdvReac Severe Dizziness Verified 06/17/18 18:47 Physical Exam Osteopathic Statement: *. No significant issues noted on an osteopathic structural exam other than those noted in the History and Physical/Consult. Vitals: Vital Signs Temp Pulse Pulse Resp BP BP Pulse Ox 06/18/18 07:46 84 06/18/18 07:30 99 06/18/18 06:08 98.5 F 84 16 149/72 99 06/17/18 21:42 98.1 F 87 17 162/84 96 06/17/18 20:29 97.9 F 104 H 24 168/86 96 06/17/18 20:25 96 22 06/17/18 19:26 101 H 30 H 204/91 96 06/17/18 17:54 18 06/17/18 17:37 98.3 F 78 22 153/75 96 Intake and Output 06/17/18 06/18/18 06/18/18 22:59 06:59 14:59 Intake Total 480 1420 Balance 480 1420 Intake: Intake, IV Titration 800 Amount Sodium Chloride 0.9% 1, 800 000 ml @ 100 mls/hr IV . Q10H EARLINE Rx#:[id number] Oral 480 620 Other: # Voids 1 1 1 Weight 65.771 kg 65.771 kg The patient does have conversational dyspnea, she is oriented, nasal O2 in place. She seems a bit uncomfortable at this time. HEENT examination is grossly unremarkable. Mucous membranes are moist. No oral lesions. Neck supple. Full range of motion. No adenopathy thyromegaly or neck vein distention. Cardiovascular examination reveals regular rhythm rate. S1-S2 normal. No S3 or S4. No discernible murmur noted. Heart rate is 80 bpm. Lungs reveal coarse bilateral breath sounds, worse on the right. Breath sounds are diminished throughout. There is some expiratory wheezes. No crackles. There is prolongation on forced maneuver. Abdomen soft bowel sounds are heard. No masses or tenderness. Extremities are intact. No cyanosis clubbing or edema. Skin is without rash or lesion. Neurologic examination is brief but nonfocal. Results - Laboratory Findings CBC and BMP: 06/17/18 18:05 06/17/18 18:05 PT/INR, D-dimer PT 9.5 sec (9.0-12.0) 06/17/18 18:05 INR 0.9 (<1.2) 06/17/18 18:05 D-Dimer 1.10 mg/L FEU (<0.60) H 06/17/18 18:05 Abnormal lab findings: Abnormal Labs 06/17/18 06/17/18 18:05 18:05 APTT 20.4 L D-Dimer 1.10 H Total Creatine Kinase 26 L - Diagnostic Findings Chest x-ray: report reviewed, image reviewed CT scan - chest: report reviewed, image reviewed (Labs, x-rays, CAT scans, and medications are reviewed.) Assessment and Plan Assessment: Assessment Acute hypoxemic respiratory failure secondary to COPD exacerbation Severe stage IV COPD Large cavitating mass posterior segment right upper lobe, likely representing bronchogenic carcinoma, infection much less likely Thoracic adenopathy, consistent with probable malignancy History of hypothyroidism History of hyperlipidemia History of hypertension History of angina pectoris History of DJD Previous history of heavy tobacco use History of anxiety/depression Plan: Plan dated 06/18/2018 Chest x-ray and CAT scan is reviewed. No evidence of pulmonary embolism. There is a large cavitating mass in the posterior segment of the right upper lobe. It's really gotten much larger since previous CAT scans done in 2017. CBC is normal. PTT is 20.4 d-dimer 1.10 and electrolytes all normal. Medications are reviewed. Please see my changes. We'll make sure the patient on appropriate medications for COPD exacerbation. Her prognosis is very guarded given the fact that she has stage IV disease. Apparently my partner discussed with her as it relates to any anticipated hip replacement which she said he advised against. Certainly, our primary goal is to get her COPD under control and get her back into see Dr. Garcia about possible options. She will wasn't excited about having a bronch as I explained that to her given the fact that she would be in a prior light sleep and she was not sure whether or not she would even wake up. Time with Patient: Greater than 30
[2018-06-18] MEDS: HEPARIN SODIUM,PORCINE 5,000 UNIT/ML 1 ML VIAL SQ SCH (17:37)
[2018-06-18] MEDS: CARVEDILOL 12.5 MG TAB PO SCH (17:37)
[2018-06-18] MEDS: FAMOTIDINE 20 MG TAB PO SCH (20:41)
[2018-06-19] MEDS: HEPARIN SODIUM,PORCINE 5,000 UNIT/ML 1 ML VIAL SQ SCH ×2 (00:15→07:43)
[2018-06-19] MEDS: MORPHINE SULFATE 4 MG/ML SYRINGE IV PRN (04:47)
[2018-06-19] MEDS ORDERED: LEVOTHYROXINE 50 MCG TAB PO SCH (06:30)
[2018-06-19] MEDS: IPRATROPIUM-ALBUTEROL 3 ML NEB INHALATION SCH ×2 (07:16→11:13)
[2018-06-19] MEDS: SYMBICORT 160-4.5 MCG INHALER INHALATION SCH (07:16)
[2018-06-19] MEDS: predniSONE 20 MG TAB PO SCH (07:42)
[2018-06-19] MEDS: AMOXIC-POT CLAV 875-125MG 1 EACH TAB PO SCH (07:43)
[2018-06-19] MEDS: CARVEDILOL 12.5 MG TAB PO SCH (07:43)
[2018-06-19] MEDS: FAMOTIDINE 20 MG TAB PO SCH (07:43)
[2018-06-19] MEDS ORDERED: LISINOPRIL 10 MG TAB PO SCH (09:00)
[2018-06-19] MEDS ORDERED: predniSONE 5 MG TAB PO SCH (09:00)
[2018-06-19] MEDS ORDERED: PARoxetine 10 MG TAB PO SCH (09:00)
--- NOTE | 2018-06-19 11:02 | P.DS ---
Providers Date of admission: 06/17/18 19:57 Attending physician: Silvia Gandhi MD Consults: 06/17/18 20:17 Consult Physician Stat Consulting Provider: Jackie Min Reason/Comments: lung mass Do you want consulting provider notified?: Yes Primary care physician: Brock Hill, Hospital Course: 67-year-old female with advanced COPD, gold stage IV uses 2-3 L of oxygen at home came in with complaints of shortness of breath is having wheezing complaining of hemoptysis. Patient has a right upper lobe mass which was known and is being followed as an outpatient. Patient had a CAT scan of the chest which mostly showed infiltrate very minimal air bronchogram. Although patient doesn't have any fever doesn't have any leukocytosis clinically does not appear to have pneumonia. Patient the is still not up to her baseline. She is also complaining of chest pain musculoskeletal secondary to coughing and from her mass, facet of troponin is negative. Patient's d-dimer is bit elevated which is a nonspecific test there is no palmar embolism on the CAT scan. Patient is also complaining of clear phlegm production with hemoptysis. 06/19/2018 Patient is still wheezing feels ready to go home and cleared by pulmonology to be discharged. Patient is requesting pain medications for her chest pain from coughing and pulmonary lesion. Patient will be prescribed her tramadol for that. PHYSICAL EXAMINATION: GENERAL: The patient is alert and oriented x3, not in any acute distress. Well developed, well nourished. HEENT: Pupils are round and equally reacting to light. EOMI. No scleral icterus. No conjunctival pallor. Normocephalic, atraumatic. No pharyngeal erythema. No thyromegaly. CARDIOVASCULAR: S1 and S2 present. No murmurs, rubs, or gallops. PULMONARY: Patient still has mild expiratory wheezing ABDOMEN: Soft, nontender, nondistended, normoactive bowel sounds. No palpable organomegaly. MUSCULOSKELETAL: No joint swelling or deformity. EXTREMITIES: No cyanosis, clubbing, or pedal edema. NEUROLOGICAL: Gross neurological examination did not reveal any focal deficits. SKIN: No rashes. Assessment and Plan Plan: -Shortness of breath and acute on chronic hypercapnic respiratory failure secondary to COPD exacerbation -Lung mass: Follow-up as an outpatient Dr. Min and biopsy as an outpatient -Chest pain musculoskeletal reproducible. -Hypertension -Hyperlipidemia -Hypothyroidism -Former smoker quit smoking in September -Depression Patient Condition at Discharge: Good Plan - Discharge Summary New Discharge Prescriptions: New Doxycycline Monohydrate [Monodox] 100 mg PO BID 3 Days #6 cap predniSONE 10 mg PO DAILY #30 tab traMADol HCL [Ultram] 50 mg PO Q4HR PRN 3 Days #18 tab PRN Reason: Pain Ranitidine HCl [Zantac] 150 mg PO BID #30 tab No Action Levothyroxine Sodium [Synthroid] 50 mcg PO DAILY Budesonide/Formoterol Fumarate [Symbicort 160-4.5 Mcg Inhaler] 2 puff INHALATION RT-BID ALPRAZolam [Xanax] 0.25 mg PO BID Albuterol Inhaler [Ventolin Hfa Inhaler] 2 puff INHALATION RT-QID Carvedilol [Coreg] 12.5 mg PO BID #60 tablet Lisinopril [Prinivil] 10 mg PO DAILY #30 tab PARoxetine HCL [Paxil] 10 mg PO DAILY #30 tab Ipratropium-Albuterol Nebulize [Duoneb 0.5 mg-3 mg/3 ml Soln] 3 ml INHALATION RT-QID #120 neb predniSONE 5 mg PO DAILY Furosemide [Lasix] 20 mg PO DAILY PRN PRN Reason: Edema Discharge Medication List ALPRAZolam [Xanax] 0.25 mg PO BID 10/08/16 [History] Albuterol Inhaler [Ventolin Hfa Inhaler] 2 puff INHALATION RT-QID 10/08/16 [ History] Budesonide/Formoterol Fumarate [Symbicort 160-4.5 Mcg Inhaler] 2 puff INHALATION RT-BID 10/08/16 [History] Levothyroxine Sodium [Synthroid] 50 mcg PO DAILY 10/08/16 [History] Carvedilol [Coreg] 12.5 mg PO BID #60 tablet 10/11/16 [Rx] Lisinopril [Prinivil] 10 mg PO DAILY #30 tab 10/11/16 [Rx] PARoxetine HCL [Paxil] 10 mg PO DAILY #30 tab 10/11/16 [Rx] Ipratropium-Albuterol Nebulize [Duoneb 0.5 mg-3 mg/3 ml Soln] 3 ml INHALATION RT -QID #120 neb 05/30/17 [Rx] Furosemide [Lasix] 20 mg PO DAILY PRN 06/17/18 [History] predniSONE 5 mg PO DAILY 06/17/18 [History] Doxycycline Monohydrate [Monodox] 100 mg PO BID 3 Days #6 cap 06/19/18 [Rx] Ranitidine HCl [Zantac] 150 mg PO BID #30 tab 06/19/18 [Rx] predniSONE 10 mg PO DAILY #30 tab 06/19/18 [Rx] traMADol HCL [Ultram] 50 mg PO Q4HR PRN 3 Days #18 tab 06/19/18 [Rx] Follow up Appointment(s)/Referral(s): Jackie Min MD [STAFF PHYSICIAN] - 1 Week Brock Hill DO [Primary Care Provider] - 3 Days Discharge Disposition: HOME SELF-CARE
[2018-06-19 12:42] VITALS: BP 181/75; PULSE 92; RESP 18; TEMP 98.4
--- NOTE | 2018-06-19 13:47 | P.PN ---
Subjective Progress Note Date: 06/19/18 Principal diagnosis: Acute hypoxemic respiratory failure secondary to COPD exacerbation, large cavitating mass, in the right upper lobe Pulmonary consult dated 06/18/2018 This is a 67-year-old female who sees a Dr. 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 The patient apparently has a mass in the right upper lobe, posterior segment which over the course of months has gotten much larger and is cavitating. The patient likely has either a cavitating infection and/or lung cancer. She was a heavy smoker in the past. Her more recent computed tomography scan was done in 2016 and the lesion was much smaller. In addition, she has significant adenopathy within the hilum and mediastinum consistent with malignancy. Anyway, her primary complaints included shortness of breath chest congestion cough and hemoptysis. She would be a very poor candidate for a procedure. It certainly could be done but she is not excited about having it done. She apparently was told by my partner recently that a hip surgery that she was planning to have with the very risky at best. My plan for her would be to improve her lung function in her pulmonary symptoms and sent her back to my partner for his opinion. She apparently was told by him that she has stage IV very severe disease. Her medications at home for her breathing include albuterol inhaler, Symbicort, high-dose and daily prednisone. She apparently also has oxygen and a nebulizer machine. She apparently has a history of hyperlipidemia hypertension angina pectoris hypothyroidism skin cancer and DJD. On 06/19/2018 patient seen in follow-up on the medical surgical floor. Still has a hemoptysis, shortness of breath with exertion. Right now she is sitting in bed, appears to be in no acute distress. She is afebrile, hypertensive at times, anxious at times. She reports a lot of anxiety in regards to a possible diagnosis of cancer related to the large cavitating mass in the right upper lobe , that seem to have increased since the prior CAT scan in 2017. He'll having some chest pain from coughing, she is on oral pain medications, and the pain is reasonably controlled. Patient will need follow-up with Dr. Garcia in the office regarding the further workup of the right upper lobe lesion. She has very poor underlying pulmonary function, and the decision about biopsy or further treatment will have her main medical primary engine dynamometer tester on her COPD symptoms are controlled. Objective - Vital Signs Vital signs: Vital Signs Temp 98.4 F 06/19/18 12:35 Pulse 92 06/19/18 12:35 Resp 18 06/19/18 12:35 BP 181/75 06/19/18 12:35 Pulse Ox 97 06/19/18 12:35 Intake & Output 06/18/18 06/19/18 06/19/18 18:59 06:59 18:59 Intake Total 1440 720 Balance 1440 720 Weight 65.771 kg Intake: Intake, IV Titration 240 240 Amount Sodium Chloride 0.9% 1, 240 240 000 ml @ 100 mls/hr IV . Q10H EARLINE Rx#:[id number] Oral 1200 480 Other: Voiding Method Toilet Toilet Toilet # Voids 4 1 # Bowel Movements 1 - Exam The patient does have conversational dyspnea, she is oriented, nasal O2 in place. She seems a bit uncomfortable at this time. HEENT examination is grossly unremarkable. Mucous membranes are moist. No oral lesions. Neck supple. Full range of motion. No adenopathy thyromegaly or neck vein distention. Cardiovascular examination reveals regular rhythm rate. S1-S2 normal. No S3 or S4. No discernible murmur noted. Heart rate is 80 bpm. Lungs reveal coarse bilateral breath sounds, worse on the right. Breath sounds are diminished throughout. There is some expiratory wheezes. No crackles. There is prolongation on forced maneuver. Abdomen soft bowel sounds are heard. No masses or tenderness. Extremities are intact. No cyanosis clubbing or edema. Skin is without rash or lesion. Neurologic examination is brief but nonfocal. - Labs CBC & Chem 7: 06/17/18 18:05 06/17/18 18:05 Labs: Microbiology - Last 24 Hours (Table) 06/17/18 18:05 Blood Culture - Preliminary Blood No Growth after 24 hours Assessment and Plan Plan: Assessment: Acute hypoxemic respiratory failure secondary to COPD exacerbation Severe stage IV COPD Large cavitating mass posterior segment right upper lobe, likely representing bronchogenic carcinoma, infection much less likely Thoracic adenopathy, consistent with probable malignancy History of hypothyroidism History of hyperlipidemia History of hypertension History of angina pectoris History of DJD Previous history of heavy tobacco use History of anxiety/depression Plan: From pulmonary perspective she remains stable, she can be discharged home from our standpoint, finish outpatient course of antibiotics, prednisone taper, she is receiving pain medications for the chest discomfort. She will need follow- up with Dr. Garcia in the office in one week and can be decided at that time on further workup of the right upper lobe mass, which seems to have increased since the last computed tomography scan from 2017. I performed a history & physical examination of the patient and discussed their management with my nurse practitioner, Taylor Vadlovinos. I reviewed the nurse practitioner's note and agree with the documented findings and plan of care. Lung sounds are positive for scattered wheezes and rhonchi. The findings and the impression was discussed with the patient. I attest to the documentation by the nurse practitioner. Time with Patient: Less than 30
== END 2018-06-19 15:40 | disposition home or self-care (01) | DRG 190 ==
LOC: EC 16:23 → 5MS5E 19:57
PROVIDERS: ADMIT Internal Medicine; ATTEND Internal Medicine
DX: J44.1 Chronic obstructive pulmonary disease with (acute) exacerbation (principal); J96.21 Acute and chronic respiratory failure with hypoxia; J96.22 Acute and chronic respiratory failure with hypercapnia; R04.2 Hemoptysis; D49.1 Neoplasm of unspecified behavior of respiratory system; E03.9 Hypothyroidism, unspecified; E78.5 Hyperlipidemia, unspecified; F32.9 Major depressive disorder, single episode, unspecified; F41.9 Anxiety disorder, unspecified; I10 Essential (primary) hypertension; M19.90 Unspecified osteoarthritis, unspecified site; R07.89 Other chest pain; R59.9 Enlarged lymph nodes, unspecified; Z79.51 Long term (current) use of inhaled steroids; Z79.899 Other long term (current) drug therapy; Z79.890 Hormone replacement therapy; Z88.5 Allergy status to narcotic agent; Z99.81 Dependence on supplemental oxygen; Z87.891 Personal history of nicotine dependence; Z85.828 Personal history of other malignant neoplasm of skin; Z90.49 Acquired absence of other specified parts of digestive tract; Z82.49 Family history of ischemic heart disease and other diseases of the circulatory system
CPT/HCPCS: 36415; 71046; 71275; 80053; 82550; 82553; 83735; 84484; 85025; 85379; 85610; 85730; 87040; 93005; 94640; 94760; 96361; 96374; 99285

== ENCOUNTER → 2018-07-06 | Outpatient (CLI) | payer MEDICARE, OTHER ==
--- NOTE | 2018-07-06 17:19 | PE ---
EXAMINATION TYPE: PET CT fusion skull to thigh DATE OF EXAM: 07/06/2018 COMPARISON: CTA chest June 17, [address] May 29, 2017 HISTORY: Left-sided lung mass and lymphadenopathy. TECHNIQUE: Following the intravenous administration of 13.013 mCi of F-18 FDG, whole body images are performed from the skull base to the midthigh. Images are reviewed on the computer in the coronal, axial, and sagittal planes. Reconstructed rotating images are created on independent workstation and reviewed on the computer. A noncontrast CT is performed in conjunction with the PET scan. SCAN: Initial Scan FINDINGS: SKULL BASE AND NECK: No suspicious hypermetabolic uptake is present . Symmetric uptake at level of vo eloisa cords is presumed physiologic. CHEST, MEDIASTINUM, AND HILAR REGION: There is background moderate to advanced underlying emphysemato us change. There is persistent cavitary right upper lobe mass posteriorly extending to apex and pleur al surface with peripheral hypermetabolic uptake consistent with malignancy. Mass measures roughly 6. 9 cm transversely axial image 64 x 5.3 cm AP diameter. Max SUV is 11.3. There are hypermetabolic enlarged thoracic lymph nodes involving right paratracheal and pericarinal r egions also along right tracheobronchial angle, for reference right paratracheal lymph node measures 1.3 x 1.1 cm axial image 73, max SUV is 8.86. ABDOMEN AND PELVIS: No suspicious hypermetabolic uptake in abdomen or pelvis is seen. There is persis tent low dense left adrenal mass measuring 1.7 x 1.0 cm axial image 125 with Hounsfield units less th an 10 and no hypermetabolic uptake favoring benign lipid rich adenoma unchanged from 2017 CT in size. OSSEOUS STRUCTURES: No suspicious hypermetabolic uptake is seen. OTHER CT: There is mild to moderate calcified plaque at bilateral carotid bulbs. There is coronary artery calcification and/or stent in the RCA distribution, correlate clinically. Gallbladder is not well seen and may be surgically absent or contracted. There is moderate calcified plaque of aorta extending into branch vessels. There is multilevel facet arthropathy in the lower lumbar spine. Some nonspecific diffuse muscle uptake is present for example left forearm and left lateral thigh cou ld reflect active inflammation, correlate clinically. IMPRESSION: Malignancy as suspected on recent CT is confirmed left upper lobe with thoracic adenopath y. TNM STAGING SUSPECTED T3, N2,M0 AJCC STAGING IIIA
== END | disposition home or self-care (01) ==
LOC: RADPETMAIN 11:53
PROVIDERS: ATTEND Internal Medicine
DX: C34.12 Malignant neoplasm of upper lobe, left bronchus or lung (principal); R59.0 Localized enlarged lymph nodes
CPT/HCPCS: 78815; A9552

== ENCOUNTER 2018-07-25 08:51 | Day surgery (SDC) | payer MEDICARE, OTHER ==
[2018-07-25] MEDS ORDERED: ALPRAZolam 0.25 MG TAB PO STA (09:21)
[2018-07-25 09:25] LABS: Mean Platelet Volume 6.7; Platelet Count 436 k/uL (150-450)
[2018-07-25 09:28] VITALS: RESP 20; TEMP 97.6
[2018-07-25 09:30] LABS: INR 1.1 (<1.2); Prothrombin Time 10.4 sec (9.0-12.0)
--- NOTE | 2018-07-25 10:41 | CT ---
EXAMINATION TYPE: CT biopsy lung RT DATE OF EXAM: 07/25/2018 COMPARISON: 06/17/2018 HISTORY: Right upper lobe lung mass CT DLP: 409 mGycm The procedure is discussed with the patient, the risks, complications, benefits and alternatives, wer e discussed and any questions were answered. Informed consent was obtained. The patient is placed p susana on the CT table, prepped and draped in the usual sterile fashion. Utilizing a 18-gauge Core needle access into the right upper lobe mass was achieved with a single pas s performed. Pathology pending. All elements of maximal barrier and sterile technique were utilized . The patient remained stable throughout the procedure with no immediate postprocedural complication . IMPRESSION: 1. Successful CT guided core biopsy of a right upper lobe lung mass
--- NOTE | 2018-07-25 10:49 | XR ---
EXAMINATION TYPE: XR chest 1V portable DATE OF EXAM: 07/25/2018 COMPARISON: Prior chest x-ray 06/26/2018 HISTORY: Status post right lung biopsy TECHNIQUE: Single frontal view of the chest is obtained. FINDINGS: No evident pneumothorax or pleural effusion. Upper lobe mass is stable. IMPRESSION: No evident complication status post lung biopsy.
[2018-07-25 11:53] VITALS: PULSE 89
[2018-07-25 12:28] VITALS: BP 164/71
--- NOTE | 2018-07-25 12:47 | XR ---
EXAMINATION TYPE: XR chest 1V portable DATE OF EXAM: 07/25/2018 COMPARISON: 06/17/2018 INDICATION: Postbiopsy TECHNIQUE: Single frontal view of the chest is obtained. FINDINGS: The heart size is normal. The pulmonary vasculature is normal. There is a large right upper lobe consolidation. No pneumothorax is evident post biopsy. IMPRESSION: 1. No pneumothorax post biopsy. 2. Right upper lobe increased density. Follow-up is recommended.
== END 2018-07-25 12:50 | disposition home or self-care (01) ==
LOC: RADPROMAIN 08:51
PROVIDERS: ATTEND Internal Medicine
DX: C34.11 Malignant neoplasm of upper lobe, right bronchus or lung (principal); J85.0 Gangrene and necrosis of lung; Z88.5 Allergy status to narcotic agent
CPT/HCPCS: 36415; 71045; 77012; 85049; 85610; 88305; 88341; 88342

== ENCOUNTER → 2018-08-12 | Outpatient (CLI) | payer MEDICARE, OTHER ==
--- NOTE | 2018-08-12 10:53 | MR ---
EXAMINATION TYPE: MR brain wo/w con DATE OF EXAM: 08/12/2018 COMPARISON: NONE HISTORY: Lung CA, mets. Staging study. TECHNIQUE: Multiplanar, multisequence images of the brain and brainstem is performed without and with IV contras t, utilizing 6 mL intravenous Gadavist . FINDINGS: Diffusion weighted images demonstrate no evidence of a recent infarct or other diffusion ab normality. There is no worrisome extra-axial fluid collection there is diffuse ventricular and sulca l prominence consistent with diffuse cerebral atrophy. There are scattered focal and confluent areas of T2 hyperintensity seen throughout the deep and periventricular white matter. Lesions are nonspecif ic in appearance and distribution but most likely on basis of product of chronic small vessel ischemi c change in patient of this age. Midline structures demonstrate normal morphology. The craniocervical junction appears within normal limits. Post contrast images demonstrate no abnormal enhancement or suspicious enhancing intraparenc hymal lesions. The dural venous sinuses appear patent. The visualized sinuses are clear and the globe s are intact. Nasal septum is deviated to left of midline. IMPRESSION: 1. No suspicious enhancing intraparenchymal masses to suggest metastatic disease. 2. Background Mild to moderate diffuse cerebral atrophy and moderate to severe chronic small vessel i schemic change noted.
== END ==
LOC: RADMRIMAIN 09:11
PROVIDERS: ATTEND Radiology Radiation Oncology
DX: G31.9 Degenerative disease of nervous system, unspecified (principal); I67.82 Cerebral ischemia
CPT/HCPCS: 82565; 84520; 70553; 36415; A9585

== ENCOUNTER 2018-08-22 16:02 | Inpatient (IN) | payer MEDICARE, OTHER ==
--- NOTE | 2018-08-22 18:22 | XR ---
EXAMINATION TYPE: XR chest 2V DATE OF EXAM: 08/22/2018 COMPARISON: 07/25/2018 HISTORY: Weakness TECHNIQUE: Frontal and lateral views of the chest are obtained. FINDINGS: There is some consolidation in the right upper lobe adjacent to the right major fissure. T here is pleural thickening. Left lung is clear. Heart size is normal. There is no heart failure. Bony thorax appears intact. IMPRESSION: There is increasing right upper lobe consolidation compared to last exam and increase in the pleural thickening. This is consistent with progression of tumor. No heart failure.
[2018-08-22] MEDS ORDERED: HYDROmorphone 1 MG/ML 1 ML SYRINGE IVP STA (19:47)
[2018-08-22] MEDS ORDERED: SODIUM CHLORIDE 0.9% 1,000 ML IV STA ×2 (19:47→23:41)
--- NOTE | 2018-08-22 19:47 | ED ---
General Adult HPI - General Chief complaint: Recheck/Abnormal Lab/Rx Stated complaint: dehydration Time Seen by Provider: 08/22/18 19:27 Source: family, RN notes reviewed Mode of arrival: wheelchair Limitations: altered mental status - History of Present Illness Initial comments: 68-year-old female with a past medical history of lung cancer, COPD, hyperlipidemia, hypertension presents to the emergency department for a chief complaint of weakness. Patient states this has been ongoing for months but has been consistently worsening. She states she does not have an appetite and is not drinking water and has urinated once in the past 24 hours. Patient states she was diagnosed with lung cancer confirmed to 2 weeks ago and started radiation 4 days ago. Patient also recently started on fentanyl patch and [place]. She states she has not taken anything since this morning for pain. Patient admits to chest pain that has been ongoing for 1 month. She admits to increased shortness of breath as well, states she has COPD. She denies any significant coughing.Patient has no other complaints at this time including abdominal pain, nausea or vomiting, headache, or visual changes. - Related Data Home Medications Medication Instructions Recorded Confirmed ALPRAZolam [Xanax] 0.25 mg PO BID 10/08/16 08/22/18 Albuterol Inhaler [Ventolin Hfa 2 puff INHALATION RT-QID 10/08/16 08/22/18 Inhaler] Budesonide/Formoterol Fumarate 2 puff INHALATION RT-BID 10/08/16 08/22/18 [Symbicort 160-4.5 Mcg Inhaler] Levothyroxine Sodium [Synthroid] 50 mcg PO DAILY 10/08/16 08/22/18 Furosemide [Lasix] 20 mg PO DAILY PRN 06/17/18 08/22/18 predniSONE 5 mg PO DAILY 06/17/18 08/22/18 HYDROcodone/APAP 5-325MG [[place] 1 tab PO Q4HR PRN 08/22/18 08/22/18 5-325] fentaNYL 12MCG/HR PATCH [Duragesic 2 patch TRANSDERM Q72H 08/22/18 08/22/18 12MCG/HR] Previous Rx's Medication Instructions Recorded Carvedilol [Coreg] 12.5 mg PO BID #60 tablet 10/11/16 Lisinopril [Prinivil] 10 mg PO DAILY #30 tab 10/11/16 PARoxetine HCL [Paxil] 10 mg PO DAILY #30 tab 10/11/16 Ipratropium-Albuterol Nebulize 3 ml INHALATION RT-QID #120 neb 05/30/17 [Duoneb 0.5 mg-3 mg/3 ml Soln] Ranitidine HCl [Zantac] 150 mg PO BID #30 tab 06/19/18 Allergies Allergy/AdvReac Type Severity Reaction Status Date / Time codeine AdvReac Severe Dizziness Verified 08/22/18 19:48 Review of Systems ROS Statement: Those systems with pertinent positive or pertinent negative responses have been documented in the HPI. ROS Other: All systems not noted in ROS Statement are negative. Past Medical History Past Medical History: Cancer, Chest Pain / Angina, COPD, Hyperlipidemia, Hypertension, Osteoarthritis (OA), Thyroid Disorder Additional Past Medical History / Comment(s): arthritis, skin cancer," spot on lung- dr mclean follwing up", home o2 2 liters at rest 2 liters w/ activity. History of Any Multi-Drug Resistant Organisms: None Reported Past Surgical History: Adenoidectomy, Cholecystectomy, Tonsillectomy, Tubal Ligation Additional Past Surgical History / Comment(s): pt is scheduled for right hipm replacement in June 2017 Past Anesthesia/Blood Transfusion Reactions: Motion Sickness Additional Past Anesthesia/Blood Transfusion Reaction / Comment(s): had blood transfusion age 7 after tonsil sx-no known reaction to it. pt stated i was supposed to have hip sx but told unable to lungs are too bad to go thru sx" Past Psychological History: Anxiety, Depression Smoking Status: Former smoker Past Alcohol Use History: None Reported Past Drug Use History: None Reported - Past Family History Mother Family Medical History: Myocardial Infarction ([place]) Father Family Medical History: Myocardial Infarction ([place]) General Exam Limitations: altered mental status General appearance: alert, in no apparent distress Head exam: Present: atraumatic, normocephalic, normal inspection Eye exam: Present: normal appearance, PERRL, EOMI. Absent: scleral icterus, conjunctival injection, periorbital swelling ENT exam: Present: normal exam, normal oropharynx, mucous membranes moist Neck exam: Present: normal inspection, full ROM. Absent: tenderness, meningismus, lymphadenopathy Respiratory exam: Present: wheezes, rhonchi. Absent: respiratory distress, rales, stridor Cardiovascular Exam: Present: regular rate, normal rhythm, normal heart sounds. Absent: systolic murmur, diastolic murmur, rubs, gallop, clicks GI/Abdominal exam: Present: soft, normal bowel sounds. Absent: distended, tenderness, guarding, rebound, rigid Neurological exam: Present: alert, oriented X3, CN II-XII intact Psychiatric exam: Present: normal affect, normal mood Course Vital Signs 08/22/18 08/22/18 08/22/18 16:59 20:06 20:30 Temperature 98.2 F Pulse Rate 91 Respiratory 18 Rate Blood Pressure 113/73 165/79 O2 Sat by Pulse 90 L 93 L 97 Oximetry 08/22/18 08/22/18 08/22/18 21:00 21:30 21:47 Temperature Pulse Rate 110 H Respiratory Rate Blood Pressure 161/79 160/73 O2 Sat by Pulse 93 L 92 L Oximetry 08/22/18 08/22/18 08/22/18 21:56 22:00 22:30 Temperature Pulse Rate 112 H 101 H 105 H Respiratory 21 22 Rate Blood Pressure 162/75 152/80 O2 Sat by Pulse 94 L 91 L Oximetry Medical Decision Making - Medical Decision Making 68-year-old female with a past medical history of lung cancer diagnosed 2 weeks ago presents for chief clinic shortness of breath, weakness, chest pain for months. She states the weakness is worsening. Patient feels dehydrated. Exam is unremarkable. Lungs are diminished bilaterally. Hemoglobin 9.1 which is decreased from 12.62 months ago. CMP unremarkable. Sodium 133, patient given IV fluids. CTA of the chest shows no evidence of pulmonary embolism. However there is induration into the thoracic spine of the right upper lobe mass which is a significant change compared to the last scan in May. There is also posterior right upper rib destruction. Patient will be admitted to the hospital for pain management, IV hydration, and oncology consult. - Lab Data Result diagrams: 08/22/18 20:15 08/22/18 20:15 Lab Results 08/22/18 08/22/18 08/22/18 Range/Units 20:15 20:15 20:15 WBC 12.0 H (3.8-10.6) k/uL RBC 3.26 L (3.80-5.40) m/uL Hgb 9.1 L D (11.4-16.0) gm/dL Hct 28.6 L (34.0-46.0) % MCV 87.7 (80.0-100.0) fL MCH 27.8 (25.0-35.0) pg MCHC 31.7 (31.0-37.0) g/dL RDW 15.6 H (11.5-15.5) % Plt Count 444 (150-450) k/uL Neutrophils % 82 % Lymphocytes % 9 % Monocytes % 5 % Eosinophils % 2 % Basophils % 0 % Neutrophils # 9.9 H (1.3-7.7) k/uL Lymphocytes # 1.1 (1.0-4.8) k/uL Monocytes # 0.6 (0-1.0) k/uL Eosinophils # 0.2 (0-0.7) k/uL Basophils # 0.0 (0-0.2) k/uL Hypochromasia Slight PT (9.0-12.0) sec INR (<1.2) APTT (22.0-30.0) sec Sodium 133 L (137-145) mmol/L Potassium 4.4 (3.5-5.1) mmol/L Chloride 98 (98-107) mmol/L Carbon Dioxide 26 (22-30) mmol/L Anion Gap 9 mmol/L BUN 21 H (7-17) mg/dL Creatinine 0.95 (0.52-1.04) mg/dL Est GFR (CKD-EPI)AfAm 72 (>60 ml/min/1.73 sqM) Est GFR (CKD-EPI)NonAf 63 (>60 ml/min/1.73 sqM) Glucose 101 H (74-99) mg/dL Calcium 9.8 (8.4-10.2) mg/dL Total Bilirubin 0.4 (0.2-1.3) mg/dL AST 12 L (14-36) U/L ALT 13 (9-52) U/L Alkaline Phosphatase 91 (38-126) U/L Total Creatine Kinase <20 L (30-135) U/L CK-MB (CK-2) 0.5 (0.0-2.4) ng/mL CK-MB (CK-2) Rel Index Troponin I <0.012 (0.000-0.034) ng/mL Total Protein 6.4 (6.3-8.2) g/dL Albumin 3.2 L (3.5-5.0) g/dL Blood Type Blood Type Confirm Blood Type Recheck Antibody Screen Spec Expiration Date 08/22/18 08/22/18 08/22/18 Range/Units 20:15 20:15 21:19 WBC (3.8-10.6) k/uL RBC (3.80-5.40) m/uL Hgb (11.4-16.0) gm/dL Hct (34.0-46.0) % MCV (80.0-100.0) fL MCH (25.0-35.0) pg MCHC (31.0-37.0) g/dL RDW (11.5-15.5) % Plt Count (150-450) k/uL Neutrophils % % Lymphocytes % % Monocytes % % Eosinophils % % Basophils % % Neutrophils # (1.3-7.7) k/uL Lymphocytes # (1.0-4.8) k/uL Monocytes # (0-1.0) k/uL Eosinophils # (0-0.7) k/uL Basophils # (0-0.2) k/uL Hypochromasia PT 10.2 (9.0-12.0) sec INR 1.0 (<1.2) APTT 24.3 (22.0-30.0) sec Sodium (137-145) mmol/L Potassium (3.5-5.1) mmol/L Chloride (98-107) mmol/L Carbon Dioxide (22-30) mmol/L Anion Gap mmol/L BUN (7-17) mg/dL Creatinine (0.52-1.04) mg/dL Est GFR (CKD-EPI)AfAm (>60 ml/min/1.73 sqM) Est GFR (CKD-EPI)NonAf (>60 ml/min/1.73 sqM) Glucose (74-99) mg/dL Calcium (8.4-10.2) mg/dL Total Bilirubin (0.2-1.3) mg/dL AST (14-36) U/L ALT (9-52) U/L Alkaline Phosphatase (38-126) U/L Total Creatine Kinase (30-135) U/L CK-MB (CK-2) (0.0-2.4) ng/mL CK-MB (CK-2) Rel Index Troponin I (0.000-0.034) ng/mL Total Protein (6.3-8.2) g/dL Albumin (3.5-5.0) g/dL Blood Type A Positive Blood Type Confirm A Positive Blood Type Recheck CABO Indicated Antibody Screen NEGATIVE Spec Expiration Date 08/25/2018 - 2319 Disposition Clinical Impression: Lung cancer, Weakness, Anemia Disposition: ADMITTED IP TO THIS HOSP Condition: Good Is patient prescribed a controlled substance at d/c from ED?: No Referrals: Brock Hill DO [Primary Care Provider] - 1-2 days Time of Disposition: 23:32
[2018-08-22 20:30] LABS: Basophils % (A) 0 %; Eosinophils # (A) 0.2 k/uL (0-0.7); Eosinophils % (A) 2 %; HCT 28.6 % (34.0-46.0); Hypochromasia Slight; Lymphocytes # (A) 1.1 k/uL (1.0-4.8); Lymphocytes % (A) 9 %; MCH 27.8 pg (25.0-35.0); MCHC 31.7 g/dL (31.0-37.0); MCV 87.7 fL (80.0-100.0); Mean Platelet Volume 7.1; Monocytes # (A) 0.6 k/uL (0-1.0); Monocytes % (A) 5 %; Neutrophils # (A) 9.9 k/uL (1.3-7.7); Neutrophils % (A) 82 %; Platelet Count 444 k/uL (150-450); RBC 3.26 m/uL (3.80-5.40); RDW 15.6 % (11.5-15.5)
[2018-08-22 20:33] LABS: HGB 9.1 gm/dL (11.4-16.0)
[2018-08-22 20:39] LABS: Creatine Kinase <20 U/L (30-135)
[2018-08-22 20:41] LABS: Albumin 3.2 g/dL (3.5-5.0); Calcium 9.8 mg/dL (8.4-10.2); Potassium 4.4 mmol/L (3.5-5.1); Total Bilirubin 0.4 mg/dL (0.2-1.3); Total Protein 6.4 g/dL (6.3-8.2)
[2018-08-22 20:42] LABS: Partial Thromboplastin Time 24.3 sec (22.0-30.0); Prothrombin Time 10.2 sec (9.0-12.0)
[2018-08-22 20:52] LABS: Creatine Kinase MB 0.5 ng/mL (0.0-2.4); Troponin I <0.012 ng/mL (0.000-0.034)
[2018-08-22] MEDS ORDERED: IPRATROPIUM-ALBUTEROL 3 ML NEB INHALATION STA (21:28)
--- NOTE | 2018-08-22 22:56 | CT ---
EXAMINATION TYPE: CT chest angio for PE DATE OF EXAM: 08/22/2018 COMPARISON: 06/17/2018 HISTORY: pt not eating/drinking/dehydrated. Hx rt lung ca CT DLP: 256.1 mGycm Automated exposure control for dose reduction was used. CONTRAST: CT Chest for pulmonary embolism performed with with IV Contrast, patient injected with 100 mL of Isov ue 370. There are 3-D post processed images. FINDINGS: There is a 10 cm area of masslike consolidation in the posterior right upper lobe. This extends down to the minor fissure. Thoracic aorta is atheromatous. There are peritracheal multiple lymph nodes in measure up to 1 cm. There is almost complete occlusion of the right upper lobe bronchus. There is magalie e narrowing of the proximal right upper lobe pulmonary artery. I see no filling defect in the pulmona ry arteries. There is no evidence of aortic aneurysm or dissection. There is no pericardial effusion. There is no pleural effusion. There is diffuse pulmonary emphysema. There are enlarged right bronchi al lymph nodes that measure up to 2.5 cm. There is extensive destructive change involving T3 vertebra l body with slight loss of height. This extends into the pedicles on the right side. There is mass en croachment also probably into the spinal canal. IMPRESSION: Large right upper lobe mass consistent with tumor. There is invasion into the thoracic spine that is a significant change compared to 06/17/2018 CT scan. No evidence of pulmonary embolism. Narrowing of right upper lobe bronchus. Mediastinal and bronchial adenopathy. There is also posterior right upper rib destruction. This is involving the right third fo urth rib. Mass is significantly increased in size compared to 06/17/2018.
[2018-08-22] MEDS ORDERED: ACETAMINOPHEN TAB 325 MG TAB PO PRN (23:41)
[2018-08-23] MEDS: methylPREDNISolone SOD SUCCI 125 MG/2 ML VIAL IV SCH ×5 (01:31→23:57)
[2018-08-23] MEDS ORDERED: IPRATROPIUM-ALBUTEROL 3 ML NEB INHALATION STA (01:50)
[2018-08-23] MEDS: IPRATROPIUM-ALBUTEROL 3 ML NEB INHALATION SCH ×4 (07:09→20:09)
[2018-08-23] MEDS: HYDROcodone/APAP 5-325MG 1 EACH TAB PO PRN (10:38)
[2018-08-23] MEDS ORDERED: FUROSEMIDE 20 MG TAB PO PRN (12:21)
[2018-08-23] MEDS: CARVEDILOL 12.5 MG TAB PO SCH ×2 (13:05→17:45)
[2018-08-23] MEDS: LEVOTHYROXINE 50 MCG TAB PO SCH (13:05)
[2018-08-23] MEDS: LISINOPRIL 10 MG TAB PO SCH (13:05)
[2018-08-23] MEDS: PARoxetine 10 MG TAB PO SCH (13:05)
[2018-08-23] MEDS: ALPRAZolam 0.25 MG TAB PO SCH ×2 (13:05→21:04)
[2018-08-23] MEDS: FAMOTIDINE 20 MG TAB PO SCH ×2 (13:05→21:04)
[2018-08-23] MEDS: INSULIN ASPART 100 UNIT/ML 1 ML 10 ML VIAL SQ SCH ×3 (13:14→21:04)
--- NOTE | 2018-08-23 13:38 | P.PN ---
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 She was felt to be dehydrated and was sent to the ER for evaluation. She is in the holding area pending admission. She notes that this AM she is feeling a little better and tolerating some food by mouth. Her pain is slightly improved at 5/10 (was previously 8/10 prior to admit). She did recently take a norco. Unfortunately, after taking narcotic pain medications she becomes very sedated. Objective - Vital Signs Vital signs: Vital Signs Temp 98.2 F 08/23/18 06:00 Pulse 95 08/23/18 12:08 Resp 22 08/23/18 12:08 BP 131/66 08/23/18 12:08 Pulse Ox 96 08/23/18 12:08 Intake & Output 08/22/18 08/23/18 08/23/18 18:59 06:59 18:59 Weight 60.328 kg Other: # Voids 2 - Constitutional General appearance: Absent: no acute distress - EENT Eyes: Present: EOMI, PERRLA ENT: Present: hearing grossly normal - Neck Neck: Absent: lymphadenopathy - Respiratory Respiratory: right: diminished, rhonchi, left: CTA - Cardiovascular Rhythm: regular - Gastrointestinal General gastrointestinal: Absent: tenderness - Integumentary Integumentary: Absent: calor, cellulitis - Neurologic Neurologic: Present: CNII-XII intact - Psychiatric Psychiatric: Present: appropriate affect, intact judgment & insight - Labs CBC & Chem 7: 08/22/18 20:15 08/22/18 20:15 Labs: Abnormal Lab Results - Last 24 Hours (Table) 08/22/18 08/22/18 08/22/18 Range/Units 20:15 20:15 20:15 WBC 12.0 H (3.8-10.6) k/uL RBC 3.26 L (3.80-5.40) m/uL Hgb 9.1 L D (11.4-16.0) gm/dL Hct 28.6 L (34.0-46.0) % RDW 15.6 H (11.5-15.5) % Neutrophils # 9.9 H (1.3-7.7) k/uL Sodium 133 L (137-145) mmol/L BUN 21 H (7-17) mg/dL Glucose 101 H (74-99) mg/dL AST 12 L (14-36) U/L Total Creatine Kinase <20 L (30-135) U/L Albumin 3.2 L (3.5-5.0) g/dL - Imaging and Cardiology CT scan - chest: report reviewed, image reviewed Assessment and Plan Plan: 1. Fatigue, dehydration: Likely related to current pain regimen. I would recommend adding decadron as her lung tumor shows significant bony destruction in the area of the spine and posterior ribs. This is less likely to be sedating. 2. Locally advanced non-small cell lung cancer: Not a candidate for concurrent therapy due to poor pulmonary status and performance status. She is currently undergoing RT with plans for sequential chemotherapy. Has had recent decline in performance status. If she does not improve during this hospital stay, a transition to comfort care/hospice would be appropriate. Per her sister and the patient they both would like to see if she can improve a bit more. Will re-evaluate Sunday. Time with Patient: Less than 30
--- NOTE | 2018-08-23 15:05 | CONS ---
CONSULTATION This is a 68-year-old female who presents to the emergency department with mental status changes and difficulty breathing. She sees Dr. Cunningham as her primary. She also sees my partner, Dr. Min. She has a recent diagnosis of lung cancer. It was squamous cell. It was diagnosed by Interventional Radiology with a fine-needle aspiration of a mass in the right upper lung. Anyway, she started radiation therapy with Dr. Zac Kern, apparently has had 3 or 4 treatments. She was supposed to have a treatment yesterday, but missed her treatment because she has not been feeling well. She has significant weakness, fatigue, shortness of breath, cough. Not eating or drinking and just doing very, very poorly. She was also recently started on fentanyl patches and [place]. She apparently is not a particularly good candidate for any treatment for her disease. It is quite advanced. Dr. Kern mentioned to me on the phone today that he thought that a hospice referral might be appropriate for her. Anyway, she is here in the emergency room. She is very lethargic and sleepy. She has a very wet congested cough. We saw her a while back and I referred her back to Dr. Min at which time he sent over to Interventional Radiology for the fine-needle. She cannot really give a good history at this time. PAST MEDICAL HISTORY: Positive for recently diagnosed squamous cell lung cancer. She also has a history of chest pain, angina, COPD, hyperlipidemia, hypertension, DJD, and hypothyroidism. HOME MEDICATIONS: Include Xanax, albuterol HFA, Symbicort, levothyroxine, Lasix, prednisone, [place], fentanyl patch, Coreg, Prinivil, Paxil, updrafts, and ranitidine. ALLERGIES: Are CODEINE. Other medical history includes skin cancer. SURGICAL HISTORY: Includes among other things adenoidectomy, cholecystectomy, tonsillectomy, tubal ligation, and fine-needle aspiration of a lung mass. That was done by Interventional Radiology. SOCIAL HISTORY: Positive for previous heavy tobacco use. She does not smoke currently. FAMILY HISTORY: Previous for cardiac disease and for myocardial infarction. Occupational history noncontributory. REVIEW OF SYSTEMS: Could not be obtained. The patient is very lethargic. She is a bit confused as well. She does admit to some cough and shortness of breath. Vital signs are reviewed. Temperature is 92, heart rate 78, respiratory rate 22, blood pressure 131/66, mean 87, 3 L saturation 96%. Appears in no acute distress, but she is very lethargic and sleepy and she has a very wet congested cough which is very rattly. HEENT examination is grossly unremarkable. Mucous membranes are dry. Her face is pale. NECK: Supple. Full range of motion. No adenopathy or thyromegaly. Neck veins are flat. Cardiovascular examination reveals regular rhythm and rate. Heart rate is 78. S1, S2 normal. Heart sounds are distant. Lungs reveal very coarse inspiratory and expiratory rhonchi. There is some expiratory wheezes. There is prolongation. Breath sounds are equal bilaterally but diminished throughout. Abdomen is soft, bowel sounds are heard. Extremities are intact. No cyanosis, clubbing, or edema. Skin without rash. Neurologic examination is difficult to assess, but she does move all 4 extremities well. LAB DATA: Includes a white count of 12, hemoglobin 9.1, hematocrit 28.6, platelet count 444,000. PT 10.2, INR 1, PTT 24.3, sodium 133, potassium chloride CO2 26, BUN and creatinine were 21 and 0.95. Albumin 3.2. AST 12. A chest x-ray shows increasing right upper lobe consolidation compared to the previous CT examination done on July 25. In addition, a chest CT shows a large right upper lobe lung mass consistent with tumor. There is invasion into the thoracic spine. That is a significant change compared to a CAT scan done in May of this year. There is no evidence of pulmonary embolism. There is narrowing of the right upper lobe bronchus. There was mediastinal and bronchial adenopathy. There was also posterior right upper rib destruction. There was also involvement of the right third and fourth rib. Mass size is increased substantially since June 17 of this year. Medications are reviewed. For her breathing she is on Pulmicort, famotidine, updrafts, Solu-Medrol. ASSESSMENT: 1. Chronic obstructive pulmonary disease exacerbation in a patient with established chronic obstructive pulmonary disease and lung cancer. 2. Recent diagnosis of squamous cell carcinoma of the right lung, status post initiation of radiation treatments x3 or 4. 3. Poor performance status. 4. Acute hypoxemic respiratory failure. 5. Angina pectoris. 6. Severe chronic obstructive pulmonary disease. 7. Hyperlipidemia. 8. Hypertension. 9. Degenerative joint disease. 10.Hypothyroidism. 11.Skin cancer. PLAN: The patient will be placed on updrafts in the form of DuoNeb. The patient will also be placed on Pulmicort 1 mg twice a day along with Perforomist twice a day. The patient is on Solu-Medrol. Prognosis is poor. I did speak to Dr. Kern. He thought the patient will be a good candidate for hospice consideration. I will go ahead and put the order in. Additional recommendations and suggestions are forthcoming. Code status needs to be addressed. She appears to be a FULL CODE. That is inappropriate given her disease. Will continue to follow. Medications are reviewed. Labs are reviewed. X- rays reviewed. MMODL / IJN: [id number] /
[2018-08-23] MEDS: SODIUM CHLORIDE 0.9% 1,000 ML IV SCH (16:08)
--- NOTE | 2018-08-23 16:18 | P.HPIM ---
History of Present Illness 68-year-old present female was brought in by her daughter as patient is progressively getting weaker lethargic and possibly confused although her confusion patient was not confused when I evaluated. Patient was recently started on palliative radiation therapy for her lung cancer mass. Patient the in the past was on chemotherapy which was discontinued. Patient has severe pleuritic pain from the lung mass because of which are patient is receiving palliative radiation therapy for that patient has not been eating or drinking because of which her daughter believes she is dehydrated gag getting quite a bit lethargic because of which patient was brought here patient upon arrival was wheezing quite a bit and does appear to have severe bronchitis and short of breath and hypoxic patient was apparently initially on noninvasive ventilation subsequently switched to nasal cannula oxygen patient does have advanced COPD uses 3 L of onset at home. Patient was complaining of cough unable to bring up anything. Patient denied any fever chills nausea vomiting. Denied any diarrhea. Continues to have some pleuritic pain which appears to be from her lung cancer. Review of Systems REVIEW OF SYSTEMS: CONSTITUTIONAL: No fever, appears to be severely lethargic fatigued HEENT: No recent visual problems or hearing problems. Denied any sore throat. CARDIOVASCULAR: No chest pain, orthopnea, PND, no palpitations, no syncope. PULMONARY: No shortness of breath, no hemoptysis. GASTROINTESTINAL: No diarrhea, no nausea, no vomiting, no abdominal pain. Normoactive bowel sounds. NEUROLOGICAL: No headaches, no weakness, no numbness. HEMATOLOGICAL: Denies any bleeding or petechiae. GENITOURINARY: Denies any burning micturition, frequency, or urgency. MUSCULOSKELETAL/RHEUMATOLOGICAL: Denies any joint pain, swelling, or any muscle pain. ENDOCRINE: Denies any polyuria or polydipsia. The rest of the 14-point review of systems is negative. Past Medical History Past Medical History: Cancer, Chest Pain / Angina, COPD, Hyperlipidemia, Hypertension, Osteoarthritis (OA), Thyroid Disorder Additional Past Medical History / Comment(s): arthritis, skin cancer," spot on lung- dr caridad grigsbywing up", home o2 2 liters at rest 2 liters w/ activity. History of Any Multi-Drug Resistant Organisms: None Reported Past Surgical History: Adenoidectomy, Cholecystectomy, Tonsillectomy, Tubal Ligation Additional Past Surgical History / Comment(s): pt is scheduled for right hipm replacement in June 2017 Past Anesthesia/Blood Transfusion Reactions: Motion Sickness Additional Past Anesthesia/Blood Transfusion Reaction / Comment(s): had blood transfusion age 7 after tonsil sx-no known reaction to it. pt stated i was supposed to have hip sx but told unable to lungs are too bad to go thru sx" Past Psychological History: Anxiety, Depression Additional Psychological History / Comment(s): stated feels well maintained on meds. pt lives alone in apt has 3 [address]. has 02 and nebulizer. no home care services received. Smoking Status: Former smoker Past Alcohol Use History: None Reported Additional Past Alcohol Use History / Comment(s): started smoking at age 11 smokes 1.5 ppd Past Drug Use History: None Reported - Past Family History Mother Family Medical History: Myocardial Infarction ([place]) Father Family Medical History: Myocardial Infarction ([place]) Medications and Allergies Home Medications Medication Instructions Recorded Confirmed Type ALPRAZolam [Xanax] 0.25 mg PO BID 10/08/16 08/22/18 History Albuterol Inhaler [Ventolin Hfa 2 puff INHALATION RT-QID 10/08/16 08/22/18 History Inhaler] Budesonide/Formoterol Fumarate 2 puff INHALATION RT-BID 10/08/16 08/22/18 History [Symbicort 160-4.5 Mcg Inhaler] Levothyroxine Sodium [Synthroid] 50 mcg PO DAILY 10/08/16 08/22/18 History Carvedilol [Coreg] 12.5 mg PO BID #60 tablet 10/11/16 08/22/18 Rx Lisinopril [Prinivil] 10 mg PO DAILY #30 tab 10/11/16 08/22/18 Rx PARoxetine HCL [Paxil] 10 mg PO DAILY #30 tab 10/11/16 08/22/18 Rx Ipratropium-Albuterol Nebulize 3 ml INHALATION RT-QID #120 neb 05/30/17 Rx [Duoneb 0.5 mg-3 mg/3 ml Soln] Furosemide [Lasix] 20 mg PO DAILY PRN 06/17/18 08/22/18 History predniSONE 5 mg PO DAILY 06/17/18 08/22/18 History Ranitidine HCl [Zantac] 150 mg PO BID #30 tab 06/19/18 08/22/18 Rx HYDROcodone/APAP 5-325MG [[place] 1 tab PO Q4HR PRN 08/22/18 08/22/18 History 5-325] fentaNYL 12MCG/HR PATCH [Duragesic 2 patch TRANSDERM Q72H 08/22/18 08/22/18 History 12MCG/HR] Allergies Allergy/AdvReac Type Severity Reaction Status Date / Time codeine AdvReac Severe Dizziness Verified 08/22/18 19:48 Physical Exam Vitals: Vital Signs Temp Pulse Pulse Resp BP BP Pulse Ox 08/23/18 15:41 84 08/23/18 15:30 80 96 08/23/18 12:08 95 22 131/66 96 08/23/18 10:57 78 08/23/18 10:48 76 08/23/18 10:18 101 H 22 97 08/23/18 07:57 16 08/23/18 07:30 102 H 16 94 L 08/23/18 07:21 102 H 08/23/18 07:09 101 H 95 08/23/18 06:30 108 H 16 95 08/23/18 06:00 98.2 F 08/23/18 05:30 104 H 19 172/83 94 L 08/23/18 05:00 99 21 167/82 93 L 08/23/18 04:30 98 22 171/94 99 08/23/18 04:00 101 H 22 149/79 96 08/23/18 03:00 108 H 32 H 146/64 92 L 08/23/18 02:30 105 H 27 H 144/75 98 08/23/18 02:24 108 H 08/23/18 02:12 105 H 97 08/23/18 02:00 104 H 23 139/79 99 08/23/18 01:00 101 H 22 139/56 08/23/18 00:00 104 H 23 159/63 95 08/22/18 22:30 105 H 22 152/80 91 L 08/22/18 22:00 101 H 21 162/75 94 L 08/22/18 21:56 112 H 08/22/18 21:47 110 H 08/22/18 21:30 160/73 92 L 08/22/18 21:00 161/79 93 L 08/22/18 20:30 165/79 97 08/22/18 20:06 93 L 08/22/18 16:59 98.2 F 91 18 113/73 90 L Intake and Output 08/23/18 08/23/18 08/23/18 06:59 14:59 22:59 Intake Total 120 Balance 120 Intake: Oral 120 Other: # Voids 2 PHYSICAL EXAMINATION: GENERAL: The patient is alert and oriented x3, not in any acute distress. Thin built cachectic appears to be severely lethargic HEENT: Pupils are round and equally reacting to light. EOMI. No scleral icterus. No conjunctival pallor. Normocephalic, atraumatic. No pharyngeal erythema. No thyromegaly. CARDIOVASCULAR: S1 and S2 present. No murmurs, rubs, or gallops. PULMONARY: Chest is clear to auscultation, no wheezing or crackles. ABDOMEN: Soft, nontender, nondistended, normoactive bowel sounds. No palpable organomegaly. MUSCULOSKELETAL: No joint swelling or deformity. EXTREMITIES: No cyanosis, clubbing, or pedal edema. NEUROLOGICAL: Gross neurological examination did not reveal any focal deficits. SKIN: No rashes. Results CBC & Chem 7: 08/22/18 20:15 08/22/18 20:15 Labs: Abnormal Lab Results - Last 24 Hours (Table) 08/22/18 08/22/18 08/22/18 Range/Units 20:15 20:15 20:15 WBC 12.0 H (3.8-10.6) k/uL RBC 3.26 L (3.80-5.40) m/uL Hgb 9.1 L D (11.4-16.0) gm/dL Hct 28.6 L (34.0-46.0) % RDW 15.6 H (11.5-15.5) % Neutrophils # 9.9 H (1.3-7.7) k/uL Sodium 133 L (137-145) mmol/L BUN 21 H (7-17) mg/dL Glucose 101 H (74-99) mg/dL AST 12 L (14-36) U/L Total Creatine Kinase <20 L (30-135) U/L Albumin 3.2 L (3.5-5.0) g/dL Thrombosis Risk Factor Assmnt - Choose All That Apply Any of the Below Risk Factors Present?: Yes Each Factor Represents 1 point: Abnormal pulmonary function (COPD) Other Risk Factors: Yes Each Risk Factor Represents 2 Points: Age 61-74 years Thrombosis Risk Factor Assessment Total Risk Factor Score: 3 Thrombosis Risk Factor Assessment Level: Moderate Risk Assessment and Plan Plan: -Severe lethargy generalized weakness 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 Supportive care physical therapy. Patient is appropriate for palliative care and hospice. -Acute on chronic hypercapnic respiratory failure secondary to COPD exacerbation patient is presently at baseline improved with breathing treatments continue with inhaled steroids and pulmonology evaluated the patient highly the duration of antibiotics to them for bronchitis patient has rhonchus breath sounds. -Generalized weakness and deconditioning from her cancer itself -Pleuritic pain. Because of the lung mass on the right side symptomatically treatment for that -Hyperlipidemia -Hypertension -Hypothyroidism -Degenerative joint disease. Discussed CODE STATUS with the patient patient is wishing to be no cord which is appropriate. Patient may be more appropriate for hospice can continue with palliative radiation. I will discuss with the family again tomorrow regarding hospice options.
[2018-08-23 16:53] LABS: Glucose,Whole Blood 185 mg/dL (75-99)
--- NOTE | 2018-08-23 19:46 | P.CONS ---
History of Present Illness - Reason for Consult Consult date: 08/23/18 Locally advanced NSCLC. Intractable pain - History of Present Illness The patient is a 68-year-old white female, well known to our service. She was found to have right upper lobe mass during admission in 06/11. She had a PET scan on 07/06/18 showing uptake in the mass which appeared to be invading into the chest wall, as well as in the mediastinal lymph nodes. There was no evidence of distant disease. The patient then had a CT-guided biopsy on revealing squamous cell carcinoma. The patient was seen by Dr. gates in the office on 08/13/18. She was felt to have stage IIIB disease. The patient' s lung function, as well as performance status were quite compromised. She was not felt to be a candidate for concurrent chemoradiation. She was felt to be a fairly suboptimal candidate for even sequential therapy, and the patient herself , absolutely refuse chemotherapy. She was advised that without concurrent chemoradiation, her disease would be considered incurable. She expressed understanding of the same. She was having increasing pain in the right shoulder and right upper back due to chest wall invasion, and was referred to radiation for palliative treatment. During her office visit, it was discussed with her that she may be a candidate for biological therapies if her tumor had the appropriate by markers. She expressed willingness for testing for the same and these were ordered. The patient then started palliative radiation and has had about 4 treatments. In from radiation oncology, as she was found to be very weak, lethargic, and short of breath. He stated that her breathing and gotten worse over the past couple of days. She was therefore sent in to the hospital and admitted for further management. She denied any fevers or chills. He stated that she has a chronic cough which is at baseline. Previously cough was more prominent and was associated with hemoptysis but that has since resolved. Consult was placed for further evaluation and recommendations Review of Systems Constitutional: Reports chronic pain, Reports fatigue, Reports weakness, Reports weight loss Eyes: denies blurred vision, denies pain Ears: deny: decreased hearing, ear discharge, earache, tinnitus Ears, nose, mouth and throat: Denies headache, Denies sore throat Cardiovascular: Reports chest pain, Reports palpitations, Reports shortness of breath Respiratory: Reports cough, Reports dyspnea, Reports pain Gastrointestinal: Reports constipation Genitourinary: Denies dysuria, Denies hematuria Menstruation: Reports postmenopausal Musculoskeletal: Reports neck pain, Reports shooting arm pain Integumentary: Denies pruritus, Denies rash Neurological: Reports weakness Psychiatric: Denies anxiety, Denies depression Endocrine: Reports fatigue, Reports weight change Hematologic/Lymphatic: Reports as per HPI Past Medical History Past Medical History: Cancer, Chest Pain / Angina, COPD, Hyperlipidemia, Hypertension, Osteoarthritis (OA), Thyroid Disorder Additional Past Medical History / Comment(s): arthritis, skin cancer," spot on lung- dr caridad grigsbywing up", home o2 2 liters at rest 2 liters w/ activity. History of Any Multi-Drug Resistant Organisms: None Reported Past Surgical History: Adenoidectomy, Cholecystectomy, Tonsillectomy, Tubal Ligation Additional Past Surgical History / Comment(s): pt is scheduled for right hipm replacement in June 2017 Past Anesthesia/Blood Transfusion Reactions: Motion Sickness Additional Past Anesthesia/Blood Transfusion Reaction / Comm: had blood transfusion age 7 after tonsil sx-no known reaction to it. pt stated i was supposed to have hip sx but told unable to lungs are too bad to go thru sx" Past Psychological History: Anxiety, Depression Additional Psychological History / Comment(s): stated feels well maintained on meds. pt lives alone in apt has [address]. has 02 and nebulizer. no home care services received. Smoking Status: Former smoker Past Alcohol Use History: None Reported Additional Past Alcohol Use History / Comment(s): started smoking at age 11 smokes 1.5 ppd Past Drug Use History: None Reported - Past Family History Mother Family Medical History: Myocardial Infarction ([place]) Father Family Medical History: Myocardial Infarction ([place]) Medications and Allergies Home Medications Medication Instructions Recorded Confirmed Type ALPRAZolam [Xanax] 0.25 mg PO BID 10/08/16 08/22/18 History Albuterol Inhaler [Ventolin Hfa 2 puff INHALATION RT-QID 10/08/16 08/22/18 History Inhaler] Budesonide/Formoterol Fumarate 2 puff INHALATION RT-BID 10/08/16 08/22/18 History [Symbicort 160-4.5 Mcg Inhaler] Levothyroxine Sodium [Synthroid] 50 mcg PO DAILY 10/08/16 08/22/18 History Carvedilol [Coreg] 12.5 mg PO BID #60 tablet 10/11/16 08/22/18 Rx Lisinopril [Prinivil] 10 mg PO DAILY #30 tab 10/11/16 08/22/18 Rx PARoxetine HCL [Paxil] 10 mg PO DAILY #30 tab 10/11/16 08/22/18 Rx Ipratropium-Albuterol Nebulize 3 ml INHALATION RT-QID #120 neb 05/30/17 Rx [Duoneb 0.5 mg-3 mg/3 ml Soln] Furosemide [Lasix] 20 mg PO DAILY PRN 06/17/18 08/22/18 History predniSONE 5 mg PO DAILY 06/17/18 08/22/18 History Ranitidine HCl [Zantac] 150 mg PO BID #30 tab 06/19/18 08/22/18 Rx HYDROcodone/APAP 5-325MG [[place] 1 tab PO Q4HR PRN 08/22/18 08/22/18 History 5-325] fentaNYL 12MCG/HR PATCH [Duragesic 2 patch TRANSDERM Q72H 08/22/18 08/22/18 History 12MCG/HR] Allergies Allergy/AdvReac Type Severity Reaction Status Date / Time codeine AdvReac Severe Dizziness Verified 08/22/18 19:48 Physical Exam Vitals: Vital Signs Temp Pulse Pulse Resp BP BP Pulse Ox 08/23/18 17:49 86 176/84 08/23/18 15:41 84 08/23/18 15:30 80 96 08/23/18 12:08 95 22 131/66 96 08/23/18 10:57 78 08/23/18 10:48 76 08/23/18 10:18 101 H 22 97 08/23/18 07:57 16 08/23/18 07:30 102 H 16 94 L 08/23/18 07:21 102 H 08/23/18 07:09 101 H 95 08/23/18 06:30 108 H 16 95 08/23/18 06:00 98.2 F 08/23/18 05:30 104 H 19 172/83 94 L 08/23/18 05:00 99 21 167/82 93 L 08/23/18 04:30 98 22 171/94 99 08/23/18 04:00 101 H 22 149/79 96 08/23/18 03:00 108 H 32 H 146/64 92 L 08/23/18 02:30 105 H 27 H 144/75 98 08/23/18 02:24 108 H 08/23/18 02:12 105 H 97 08/23/18 02:00 104 H 23 139/79 99 08/23/18 01:00 101 H 22 139/56 08/23/18 00:00 104 H 23 159/63 95 08/22/18 22:30 105 H 22 152/80 91 L 08/22/18 22:00 101 H 21 162/75 94 L 08/22/18 21:56 112 H 08/22/18 21:47 110 H 08/22/18 21:30 160/73 92 L 08/22/18 21:00 161/79 93 L 08/22/18 20:30 165/79 97 08/22/18 20:06 93 L Intake and Output 08/23/18 08/23/18 08/23/18 06:59 14:59 22:59 Intake Total 120 Balance 120 Intake: Oral 120 Other: # Voids 2 - Constitutional General appearance: no acute distress - EENT Eyes: EOMI, PERRLA ENT: hearing grossly normal, normal oropharynx - Neck Neck: no lymphadenopathy - Respiratory Respiratory: bilateral: diminished, wheezing - Cardiovascular Rhythm: regular Heart sounds: normal: S1, S2 - Gastrointestinal General gastrointestinal: normal bowel sounds, soft - Integumentary Integumentary: normal - Neurologic Neurologic: CNII-XII intact - Musculoskeletal Musculoskeletal: generalized weakness, strength equal bilaterally - Psychiatric Psychiatric: A&O x's 3, appropriate affect Results CBC & Chem 7: 08/22/18 20:15 08/22/18 20:15 Labs: Abnormal Lab Results - Last 24 Hours (Table) 08/22/18 08/22/18 08/22/18 Range/Units 20:15 20:15 20:15 WBC 12.0 H (3.8-10.6) k/uL RBC 3.26 L (3.80-5.40) m/uL Hgb 9.1 L D (11.4-16.0) gm/dL Hct 28.6 L (34.0-46.0) % RDW 15.6 H (11.5-15.5) % Neutrophils # 9.9 H (1.3-7.7) k/uL Sodium 133 L (137-145) mmol/L BUN 21 H (7-17) mg/dL Glucose 101 H (74-99) mg/dL POC Glucose (mg/dL) (75-99) mg/dL AST 12 L (14-36) U/L Total Creatine Kinase <20 L (30-135) U/L Albumin 3.2 L (3.5-5.0) g/dL 08/23/18 Range/Units 16:51 WBC (3.8-10.6) k/uL RBC (3.80-5.40) m/uL Hgb (11.4-16.0) gm/dL Hct (34.0-46.0) % RDW (11.5-15.5) % Neutrophils # (1.3-7.7) k/uL Sodium (137-145) mmol/L BUN (7-17) mg/dL Glucose (74-99) mg/dL POC Glucose (mg/dL) 185 H (75-99) mg/dL AST (14-36) U/L Total Creatine Kinase (30-135) U/L Albumin (3.5-5.0) g/dL Chest x-ray: report reviewed CT scan - chest: report reviewed Assessment and Plan (1) Lung cancer Narrative/Plan: The patient has locally advanced squamous cell lung cancer. A compared to previous computed tomography scan from 06/17/18, current computed tomography scan shows significant increase in size to about 10 cm plus, versus 5.5 cm. In addition there is no invasion into the thoracic spine. The patient has been having significant pain due to local invasion and was started on palliative radiation. She feels that there is some improvement in her pain. Due to her poor lung function and performance status, the patient was not felt to be a candidate for concurrent chemoradiation which would normally be the standard of care in this case. In addition she definitely does not want any chemotherapy. Without that treatment modality, the cancer would definitely be considered not curable. The patient is accepting of the same. I had a detailed discussion with her regarding prognosis and treatment options. She feels that there is some improvement in her symptoms from radiation. Therefore if her breathing improves with ongoing treatment, it would be reasonable for her to continue and complete palliative radiation. At the time of her office visit, she had been open to the idea of considering biologic therapy if she had the appropriate by markers. While most of the test results are pending, her tumor does show a high proportion of PD-L1 positivity at 95%. This can indicate good responsiveness to immunotherapy with Keytruda in the first line. If her performance status continues to decline rapidly despite treatment of her acute condition, she likely will not be able to derive benefit in time from the immunotherapy. However if she is able to return to her baseline, this would be a reasonable option for her, given his generally favorable side effect profile, and significant potential benefit in her type of patient Current Visit: Yes Status: Acute Code(s): C34.90 - MALIGNANT NEOPLASM OF UNSP PART OF UNSP BRONCHUS OR LUNG SNOMED Code(s): 714803306 (2) Chest pain Narrative/Plan: Due to local invasion from her tumor. The patient's pain is still quite significant. She is on fentanyl and [place]. Steroids were recommended by radiation oncology, but the patient was already started on the same for her respiratory issues. This is a reasonable intervention. She is on the initial dose of fentanyl, and this can be adjusted upward, depending on her pain medicine requirement. She feels that there is some improvement with radiation. Continue to monitor. If pain is not well controlled, in addition to increasing fentanyl, it would be reasonable to consult pain service for possible nerve block Current Visit: No Status: Acute Code(s): R07.9 - CHEST PAIN, UNSPECIFIED SNOMED Code(s): 51245842 (3) Dyspnea Narrative/Plan: The patient had some acute decompensation, which is felt to be more likely due to COPD exacerbation. As noted above, if she improves with ongoing treatment and she may be a candidate for continuation of radiation as well as consideration of immunotherapy Current Visit: No Status: Acute Code(s): R06.00 - DYSPNEA, UNSPECIFIED SNOMED Code(s): 616771487
[2018-08-23 20:03] LABS: Glucose,Whole Blood 173 mg/dL (75-99)
[2018-08-23] MEDS: BUDESONIDE 1 MG/2 ML NEBU INHALATION SCH (20:08)
[2018-08-23] MEDS: FORMOTEROL FUMARATE 20 MCG/2 ML NEBU INHALATION SCH (20:08)
[2018-08-23] MEDS ORDERED: ONDANSETRON 4 MG/2 ML VIAL IVP STA (23:45)
[2018-08-24] MEDS: SODIUM CHLORIDE 0.9% 1,000 ML IV SCH ×2 (04:30→12:39)
[2018-08-24] MEDS: methylPREDNISolone SOD SUCCI 125 MG/2 ML VIAL IV SCH ×2 (06:00→12:38)
[2018-08-24] MEDS: LEVOTHYROXINE 50 MCG TAB PO SCH (06:00)
[2018-08-24] MEDS: HYDROcodone/APAP 5-325MG 1 EACH TAB PO PRN ×3 (06:02→20:26)
[2018-08-24] MEDS: FAMOTIDINE 20 MG TAB PO SCH ×2 (07:27→22:00)
[2018-08-24] MEDS: CARVEDILOL 12.5 MG TAB PO SCH ×2 (07:27→16:34)
[2018-08-24] MEDS: ALPRAZolam 0.25 MG TAB PO SCH ×2 (07:27→20:26)
[2018-08-24] MEDS: predniSONE 5 MG TAB PO SCH (07:27)
[2018-08-24] MEDS: LISINOPRIL 10 MG TAB PO SCH (07:27)
[2018-08-24] MEDS: PARoxetine 10 MG TAB PO SCH (07:28)
[2018-08-24 07:39] LABS: Glucose,Whole Blood 156 mg/dL (75-99)
[2018-08-24] MEDS: BUDESONIDE 1 MG/2 ML NEBU INHALATION SCH ×2 (08:12→21:45)
[2018-08-24] MEDS: IPRATROPIUM-ALBUTEROL 3 ML NEB INHALATION SCH ×4 (08:12→21:45)
[2018-08-24] MEDS: FORMOTEROL FUMARATE 20 MCG/2 ML NEBU INHALATION SCH ×2 (08:12→21:45)
[2018-08-24] MEDS: INSULIN ASPART 100 UNIT/ML 1 ML 10 ML VIAL SQ SCH ×4 (08:17→20:26)
[2018-08-24 11:03] VITALS: BMI 25.9
--- NOTE | 2018-08-24 11:04 | P.PN ---
Subjective Progress Note Date: 08/24/18 Principal diagnosis: COPD exacerbation, pain from malignancy, locally advanced 95% PDL-1 positive NSCLC Pt seen in f/u, she reports decent pain control at this time, breathing is stable, O2 dependence, no hemoptysis, appetite is poor but tolerates intake, denies constipation. Objective - Vital Signs Vital signs: Vital Signs Temp 98.0 F 08/24/18 04:35 Pulse 90 08/24/18 08:32 Resp 20 08/24/18 08:25 BP 156/72 08/24/18 09:42 Pulse Ox 95 08/24/18 08:15 Intake & Output 08/23/18 08/24/18 08/24/18 18:59 06:59 18:59 Intake Total 120 1700 Balance 120 1700 Intake: Intake, IV Titration 800 Amount Sodium Chloride 0.9% 1, 800 000 ml @ 100 mls/hr IV . Q10H E[facility]LINE Rx#:[id number] Oral 120 900 Other: # Voids 2 2 - Constitutional General appearance: Present: average body habitus, cooperative, no acute distress - EENT Eyes: Present: anicteric sclerae, EOMI ENT: Present: hearing grossly normal - Respiratory Respiratory: bilateral: rhonchi, wheezing - Cardiovascular Rhythm: regular (radial pulse palpated) - Gastrointestinal General gastrointestinal: Present: normal bowel sounds - Neurologic Neurologic: Present: CNII-XII intact - Musculoskeletal Musculoskeletal: Present: generalized weakness - Psychiatric Psychiatric: Present: A&O x's 3, appropriate affect, intact judgment & insight - Labs CBC & Chem 7: 08/22/18 20:15 08/22/18 20:15 Labs: Abnormal Lab Results - Last 24 Hours (Table) 08/23/18 08/23/18 08/24/18 Range/Units 16:51 19:58 07:38 POC Glucose (mg/dL) 185 H 173 H 156 H (75-99) mg/dL Assessment and Plan (1) COPD exacerbation Narrative/Plan: Treatment per IM and Pulmonary Current Visit: Yes Status: Acute Priority: High Code(s): J44.1 - CHRONIC OBSTRUCTIVE PULMONARY DISEASE W (ACUTE) EXACERBATION SNOMED Code(s): 060272887103295 (2) Cancer related pain Narrative/Plan: Cont current analgesics with titration as needed for pain control. Pt will cont XRT with Dr. Kern Current Visit: Yes Status: Acute Priority: High Code(s): G89.3 - NEOPLASM RELATED PAIN (ACUTE) (CHRONIC) SNOMED Code(s): 597160755 (3) Lung cancer Narrative/Plan: There has been marked disease progression per imaging. PDL-1 did return at 95% so, pembroliumab is indicated. from chart review it does appear that family is interested in immunotherapy, pt stated to me that she is not sure at this time. We will cont to follow with pt and see her outpatient after XRT to review option of treatment and see if pt is interested. She agreed with this plan. Current Visit: Yes Status: Acute Priority: High Code(s): C34.90 - MALIGNANT NEOPLASM OF UNSP PART OF UNSP BRONCHUS OR LUNG SNOMED Code(s): 120101998 (4) Anemia Narrative/Plan: Anemia work up ordered, no transfusion needed today. CBC ordered for AM Current Visit: Yes Status: Acute Priority: Medium Code(s): D64.9 - ANEMIA , UNSPECIFIED SNOMED Code(s): 790473473
[2018-08-24 11:11] LABS: Glucose,Whole Blood 153 mg/dL (75-99)
[2018-08-24 14:34] LABS: Hemoglobin A1C 5.4 % (4.0-6.0)
[2018-08-24 17:04] LABS: Glucose,Whole Blood 160 mg/dL (75-99)
--- NOTE | 2018-08-24 17:44 | P.PN ---
Subjective 68-year-old female admitted for COPD exacerbation dehydration, IV fluids. Patient has advanced non-small cell lung cancer stage IV receiving palliative radiation therapy to the chest for pain. Because of the high PDL-1 positivity, oncology is hopeful that patient will respond to immunotherapy and targeted therapy. Patient does have advanced COPD some treated as a part because of which the pulmonology believed that hospice is more appropriate palliative care and hospice services were consulted will have family meeting and further continuation of immunotherapy depends on the patient's decision to continue therapy. Patient although looks much better with hydration today Constitutional: Denied any fatigue denied any fever. Cardio vascular: denied any chest pain, palpitations Gastrointestinal denied any nausea vomiting Pulmonary: Denied any shortness of breath cough Neurologic denied any new focal deficits All inpatient medications were reviewed and appropriate changes in these medications as dictated in the interval history and assessment and plan. Objective - Vital Signs Vital signs: Vital Signs Temp 97.6 F 08/24/18 13:58 Pulse 90 08/24/18 17:13 Resp 20 08/24/18 15:12 BP 159/84 08/24/18 13:58 Pulse Ox 98 08/24/18 13:58 Intake & Output 08/23/18 08/24/18 08/24/18 18:59 06:59 18:59 Intake Total 120 1700 240 Balance 120 1700 240 Weight 60.328 kg Intake: Intake, IV Titration 800 Amount Sodium Chloride 0.9% 1, 800 000 ml @ 100 mls/hr IV . Q10H [facility] Rx#:[id number] Oral 120 900 240 Other: # Voids 2 2 3 - Exam PHYSICAL EXAMINATION: GENERAL: The patient is alert and oriented x3, not in any acute distress. Thin built cachectic appears to be severely lethargic HEENT: Pupils are round and equally reacting to light. EOMI. No scleral icterus. No conjunctival pallor. Normocephalic, atraumatic. No pharyngeal erythema. No thyromegaly. CARDIOVASCULAR: S1 and S2 present. No murmurs, rubs, or gallops. PULMONARY: Chest is clear to auscultation, no wheezing or crackles. ABDOMEN: Soft, nontender, nondistended, normoactive bowel sounds. No palpable organomegaly. MUSCULOSKELETAL: No joint swelling or deformity. EXTREMITIES: No cyanosis, clubbing, or pedal edema. NEUROLOGICAL: Gross neurological examination did not reveal any focal deficits. SKIN: No rashes. - Labs CBC & Chem 7: 08/22/18 20:15 08/22/18 20:15 Labs: Abnormal Lab Results - Last 24 Hours (Table) 08/23/18 08/24/18 08/24/18 Range/Units 19:58 07:38 11:10 POC Glucose (mg/dL) 173 H 156 H 153 H (75-99) mg/dL 08/24/18 Range/Units 17:02 POC Glucose (mg/dL) 160 H (75-99) mg/dL Assessment and Plan Plan: -Severe lethargy generalized weakness tiredness secondary to cancer cachexia along with the dehydration from poor by mouth intake patient was started on IV fluids Lasix on hold. Supportive care physical therapy. Palliative care services were consulted. Patient has stage IV non-small cell lung cancer -Acute on chronic hypercapnic respiratory failure secondary to COPD exacerbation patient is presently at baseline improved with breathing treatments continue with inhaled steroids and pulmonology evaluated the patient -Generalized weakness and deconditioning from her cancer itself -Pleuritic pain. Because of the lung mass on the right side symptomatically treatment for that with palliative radiation therapy -Hyperlipidemia -Hypertension -Hypothyroidism -Degenerative joint disease. Discussed CODE STATUS with the patient patient is wishing to be no code which is appropriate. Patient may be more appropriate for hospice can continue with palliative radiation.
--- NOTE | 2018-08-24 18:00 | PN ---
PROGRESS NOTE DATE OF SERVICE: 08/24/2018. 68-year-old female seen yesterday in the emergency department. She came in with complaints of difficulty breathing. She is very lethargic and somnolent in the emergency room. The patient had recently started to undergo radiation therapy by Dr. Zac Kern here in [facility] for her locally advanced non-small cell lung cancer. She was not thought to be a good candidate for chemotherapy as her performance status is very poor. Her diagnosis was made by Interventional Radiology with fine-needle aspiration of the mass in the right upper lung. The patient is doing only minimally better today. She is still very short of breath. Still very fatigued. Today, we talked about a number of things including hospice. Dr. Kern mentioned that he thought that she might be a good hospice candidate given her poor performance status. The patient was agreeable to at least talking to hospice and the consult was placed. She is not sure exactly how she will decide on that. She is feeling about the same as she did yesterday. She is very short of breath. Very weak and tired. Very fatigued. Again, I think she will tolerate either chemotherapy and/or immunotherapy very poorly as well as I think she will tolerate radiation therapy very poorly. She sees my partner for her lung disease. She sees an outside physician as her family doctor. Her other medical history includes chest pain, angina, COPD, hyperlipidemia, hypertension, DJD, and hypothyroidism. Her COPD is stage IV disease. Current vital signs reviewed. Temperature 97.6, heart rate 84, respiratory rate 23, blood pressure 159/84, mean 109. 2 L saturation 98%. She looks very fatigued and weak. She is very pale. She does arouse appropriately. She does speak appropriately. HEENT examination is grossly unremarkable. Mucous membranes are moist. No oral lesions. Neck is supple. Full range of motion. No adenopathy or thyromegaly. Cardiovascular examination reveals regular rhythm and rate. Heart sounds are distant. S1, S2 normal. Heart rate 91. Lungs reveal coarse inspiratory and expiratory rhonchi. Breath sounds are diminished throughout. Some mild expiratory wheezes. No crackles appreciated. Breath sounds equal bilaterally. Abdomen soft. Bowel sounds are heard. Extremities are intact. No cyanosis, clubbing, or edema. Skin without rash. Neurologic examination is brief but nonfocal. Labs are reviewed. Does not appear to be any new labs from today. Her chest CT done on August 22 shows a large right upper lobe mass consistent with tumor. The mass is 10 cm in size making it a T4 lesion. She also has evidence of narrowing of the right upper lobe bronchus and mediastinal and bronchial adenopathy. There is also posterior right upper rib destruction. Medications are reviewed. Microbiology is negative. ASSESSMENT: 1. Chronic obstructive pulmonary disease exacerbation in a patient with established and quite severe chronic obstructive pulmonary disease. 2. Locally advanced PD L-1 positive non-small cell lung cancer/squamous cell carcinoma. The patient has had 3 or 4 radiation treatments to the primary tumor. 3. Poor performance status and general medical debility. 4. Acute hypoxemic respiratory failure. 5. Angina pectoris. 6. Stage IV chronic obstructive pulmonary disease. 7. Hyperlipidemia. 8. Hypertension. 9. Degenerative joint disease. 10.Hypothyroidism. 11.History of skin cancer. PLAN: We did talk in detail about hospice today. The patient was agreeable to at least meeting with hospice people. She is not sure how she will decide. She is not a particular candidate for any kind treatment at this time. Dr. Kern from Radiation therapy mentioned that to me yesterday on the phone. The patient was seen by Oncology. She was seen by the primary service. No additional recommendations are made. We will continue to follow. Again, overall prognosis is very poor. MMODL / IJN: [id number] /
[2018-08-24 20:26] LABS: Glucose,Whole Blood 165 mg/dL (75-99)
[2018-08-24] MEDS: methylPREDNISolone SOD SUCCI 40 MG/ML 1 ML VIAL IV SCH (22:00)
[2018-08-25] MEDS: LEVOTHYROXINE 50 MCG TAB PO SCH (06:23)
[2018-08-25 07:17] LABS: Basophils % (A) 0 %; Eosinophils % (A) 0 %; HCT 27.4 % (34.0-46.0); HGB 8.3 gm/dL (11.4-16.0); Hypochromasia Moderate; Lymphocytes # (A) 0.2 k/uL (1.0-4.8); Lymphocytes % (A) 2 %; MCH 26.7 pg (25.0-35.0); MCHC 30.3 g/dL (31.0-37.0); MCV 88.1 fL (80.0-100.0); Mean Platelet Volume 7.3; Monocytes # (A) 0.6 k/uL (0-1.0); Monocytes % (A) 4 %; Neutrophils # (A) 12.2 k/uL (1.3-7.7); Neutrophils % (A) 94 %; Platelet Count 498 k/uL (150-450); RBC 3.11 m/uL (3.80-5.40); RDW 15.8 % (11.5-15.5); WBC 13.1 k/uL (3.8-10.6)
[2018-08-25 07:22] LABS: Glucose,Whole Blood 143 mg/dL (75-99)
[2018-08-25 07:24] LABS: Anion Gap 10 mmol/L; Blood Urea Nitrogen 20 mg/dL (7-17); Carbon Dioxide 26 mmol/L (22-30); Chloride 100 mmol/L (98-107); Glucose 133 mg/dL (74-99); Potassium 4.2 mmol/L (3.5-5.1); Sodium 136 mmol/L (137-145)
[2018-08-25] MEDS: SODIUM CHLORIDE 0.9% 1,000 ML IV SCH ×3 (07:26→18:09)
[2018-08-25] MEDS: methylPREDNISolone SOD SUCCI 40 MG/ML 1 ML VIAL IV SCH ×2 (07:27→20:02)
[2018-08-25] MEDS: ALPRAZolam 0.25 MG TAB PO SCH ×2 (07:28→20:05)
[2018-08-25] MEDS: PARoxetine 10 MG TAB PO SCH (07:28)
[2018-08-25] MEDS: CARVEDILOL 12.5 MG TAB PO SCH ×2 (07:28→18:01)
[2018-08-25] MEDS: INSULIN ASPART 100 UNIT/ML 1 ML 10 ML VIAL SQ SCH ×4 (07:28→20:46)
[2018-08-25] MEDS: FAMOTIDINE 20 MG TAB PO SCH ×2 (07:28→20:06)
[2018-08-25] MEDS: predniSONE 5 MG TAB PO SCH (07:28)
[2018-08-25] MEDS: LISINOPRIL 10 MG TAB PO SCH (07:29)
[2018-08-25] MEDS: NEOMYCIN-BACITRACIN-POLY OINT 14 GM TUBE TOPICAL SCH (07:41)
[2018-08-25] MEDS: HYDROcodone/APAP 5-325MG 1 EACH TAB PO PRN ×2 (07:41→18:01)
[2018-08-25] MEDS: IPRATROPIUM-ALBUTEROL 3 ML NEB INHALATION SCH ×4 (08:31→20:59)
[2018-08-25] MEDS: FORMOTEROL FUMARATE 20 MCG/2 ML NEBU INHALATION SCH ×2 (08:31→20:59)
[2018-08-25] MEDS: BUDESONIDE 1 MG/2 ML NEBU INHALATION SCH ×2 (08:31→20:59)
--- NOTE | 2018-08-25 13:39 | PN ---
PROGRESS NOTE DATE OF SERVICE: August 25, 2018. This is a very pleasant 68-year-old female that we initially saw in the emergency room. The patient came in with difficulty in breathing, lethargy and somnolence. Over the last day and a half or so, she seems to have improved a bit. She is much less short of breath and also having much less sleepiness and lethargic. She is a lady who has a history of locally advanced non-small cell lung cancer. It is squamous cell. The diagnosis was made by fine-needle aspiration by Dr. Edu Charlton. The patient has undergone about 3 or 4 radiation treatments, but missed her last appointment with Dr. Kern. This is because she was not feeling well. I spoke to Dr. Kern on the phone. He was concerned that the patient was becoming less and less a good candidate for radiation therapy, although today she seems much more awake and alert. The family is currently in the room with her. They are meeting with hospice today and will have some sort of plan, hopefully. She does have a history of severe COPD and she had a COPD exacerbation on admission. Her squamous cell carcinoma is PD- L1 positive. She also has a history of acute hypoxemic respiratory failure, angina pectoris, stage IV chronic obstructive pulmonary disease, hyperlipidemia, hypertension, DJD, hypothyroidism, skin cancer. She is not sure if she wants to continue with radiation treatments. She will let us know. PHYSICAL EXAMINATION: Current vital signs are reviewed. Her temperature is 98, heart rate 90, respiratory rate 20, blood pressure 183/84 with mean of 117 and at 3 L, saturations 95%. She appears much more awake and alert today. HEENT examination is grossly unremarkable. Mucous membranes are moist. Nasal O2 in place. Neck is supple. Full range of motion. No adenopathy or thyromegaly. Neck veins are flat. Cardiovascular examination reveals regular rhythm and rate. Heart rate about 88 beats per minute. S1, S2 normal. Heart sounds are distant. Lungs reveal coarse rhonchi and some expiratory wheezes. Breath sounds are diminished throughout. No crackles. There is prolongation on forced maneuver. The patient does cough and wheeze more significantly on forced maneuver. Abdomen is soft bowel sounds are heard. Extremities are intact. There is no cyanosis, clubbing, or edema. Skin without rash. Neurologic examination is brief but nonfocal. LAB DATA: Today includes a white count of 13.1, hemoglobin 8.3, hematocrit 27.4, platelet count 498,000. Sodium 136, potassium, chloride, CO2 all normal. BUN and creatinine were [address] shows a large right upper lobe mass consistent with her primary diagnosis of squamous cell carcinoma. It has now invaded the thoracic spine. In addition , there is narrowing of the right upper lobe bronchus, mediastinal and bronchial adenopathy posterior right upper rib destruction which involves the right third and fourth rib. Medications are reviewed. ASSESSMENT: 1. Chronic obstructive pulmonary disease exacerbation in a patient with very severe/stage 4 chronic obstructive pulmonary disease. 2. Locally advanced PD -L1 positive non-small cell lung cancer/squamous cell carcinoma. The patient has had 3-4 radiation treatments already. 3. Poor performance status and general medical debility. 4. Acute hypoxemic respiratory failure. 5. Angina pectoris. 6. Stage IV chronic obstructive pulmonary disease. 7. Hyperlipidemia. 8. Hypertension. 9. Degenerative joint disease. 10.Hypothyroidism. 11.History of skin cancer. 12.Anemia of chronic disease. PLAN: The patient's family and the patient are meeting with hospice today. I did speak to Dr. Kern about this patient. She does seem a bit improved today compared to when she came in on the . Medications are appropriate. We will continue to follow. No additional recommendations are made. Overall prognosis is very guarded. MMODL / IJN: [id number] / MTDD
[2018-08-25 17:25] LABS: Glucose,Whole Blood 132 mg/dL (75-99)
[2018-08-25] MEDS: HYDROmorphone 1 MG/ML 1 ML SYRINGE IVP PRN (18:57)
--- NOTE | 2018-08-25 19:21 | P.PN ---
Subjective 68-year-old female admitted for COPD exacerbation dehydration, IV fluids. Patient has advanced non-small cell lung cancer stage IV receiving palliative radiation therapy to the chest for pain. Because of the high PDL-1 positivity, oncology is hopeful that patient will respond to immunotherapy and targeted therapy. Patient does have advanced COPD some treated as a part because of which the pulmonology believed that hospice is more appropriate palliative care and hospice services were consulted will have family meeting and further continuation of immunotherapy depends on the patient's decision to continue therapy. Patient although looks much better with hydration today 08/25/2018 patient is comparing of severe back pain. Is bit constipated as well. Blood pressures admitted secondary to pain which will treat Constitutional: Denied any fatigue denied any fever. Cardio vascular: denied any chest pain, palpitations Gastrointestinal denied any nausea vomiting Pulmonary: Denied any shortness of breath cough Neurologic denied any new focal deficits All inpatient medications were reviewed and appropriate changes in these medications as dictated in the interval history and assessment and plan. Objective - Vital Signs Vital signs: Vital Signs Temp 97.7 F 08/25/18 13:00 Pulse 100 08/25/18 17:28 Resp 20 08/25/18 15:53 BP 208/121 08/25/18 13:00 Pulse Ox 90 L 08/25/18 13:00 Intake & Output 08/25/18 08/25/18 08/26/18 06:59 18:59 06:59 Intake Total 1800 240 Balance 1800 240 Intake: Intake, IV Titration 800 Amount Sodium Chloride 0.9% 1, 800 000 ml @ 100 mls/hr IV . Q10H [facility] Rx#:[id number] Oral 1000 240 Other: Voiding Method Toilet Toilet # Voids 1 3 - Exam PHYSICAL EXAMINATION: GENERAL: The patient is alert and oriented x3, not in any acute distress. Thin built cachectic appears to be severely lethargic HEENT: Pupils are round and equally reacting to light. EOMI. No scleral icterus. No conjunctival pallor. Normocephalic, atraumatic. No pharyngeal erythema. No thyromegaly. CARDIOVASCULAR: S1 and S2 present. No murmurs, rubs, or gallops. PULMONARY: Chest is clear to auscultation, no wheezing or crackles. ABDOMEN: Soft, nontender, nondistended, normoactive bowel sounds. No palpable organomegaly. MUSCULOSKELETAL: No joint swelling or deformity. EXTREMITIES: No cyanosis, clubbing, or pedal edema. NEUROLOGICAL: Gross neurological examination did not reveal any focal deficits. SKIN: No rashes. - Labs CBC & Chem 7: 08/25/18 06:47 08/25/18 06:47 Labs: Abnormal Lab Results - Last 24 Hours (Table) 08/24/18 08/25/18 08/25/18 Range/Units 20:15 06:47 06:47 WBC 13.1 H (3.8-10.6) k/uL RBC 3.11 L (3.80-5.40) m/uL Hgb 8.3 L (11.4-16.0) gm/dL Hct 27.4 L (34.0-46.0) % MCHC 30.3 L (31.0-37.0) g/dL RDW 15.8 H (11.5-15.5) % Plt Count 498 H (150-450) k/uL Neutrophils # 12.2 H (1.3-7.7) k/uL Lymphocytes # 0.2 L (1.0-4.8) k/uL Sodium 136 L (137-145) mmol/L BUN 20 H (7-17) mg/dL Glucose 133 H (74-99) mg/dL POC Glucose (mg/dL) 165 H (75-99) mg/dL 08/25/18 08/25/18 Range/Units 07:20 17:24 WBC (3.8-10.6) k/uL RBC (3.80-5.40) m/uL Hgb (11.4-16.0) gm/dL Hct (34.0-46.0) % MCHC (31.0-37.0) g/dL RDW (11.5-15.5) % Plt Count (150-450) k/uL Neutrophils # (1.3-7.7) k/uL Lymphocytes # (1.0-4.8) k/uL Sodium (137-145) mmol/L BUN (7-17) mg/dL Glucose (74-99) mg/dL POC Glucose (mg/dL) 143 H 132 H (75-99) mg/dL Assessment and Plan Plan: -Severe lethargy generalized weakness tiredness secondary to cancer cachexia along with the dehydration from poor by mouth intake patient was started on IV fluids Lasix on hold. Supportive care physical therapy. Palliative care services were consulted. Patient has stage IV non-small cell lung cancer -Acute on chronic hypercapnic respiratory failure secondary to COPD exacerbation patient is presently at baseline improved with breathing treatments continue with inhaled steroids and pulmonology evaluated the patient -Generalized weakness and deconditioning from her cancer itself -Pleuritic pain. Because of the lung mass on the right side symptomatically treatment for that with palliative radiation therapy -Hyperlipidemia -Hypertension -Hypothyroidism -Degenerative joint disease. Discussed CODE STATUS with the patient patient is wishing to be no code which is appropriate. Patient may be more appropriate for hospice can continue with palliative radiation.
[2018-08-25 20:36] LABS: Glucose,Whole Blood 113 mg/dL (75-99)
[2018-08-26] MEDS: HYDROcodone/APAP 5-325MG 1 EACH TAB PO PRN ×4 (02:11→18:53)
[2018-08-26] MEDS: LEVOTHYROXINE 50 MCG TAB PO SCH (06:25)
[2018-08-26] MEDS: INSULIN ASPART 100 UNIT/ML 1 ML 10 ML VIAL SQ SCH ×4 (07:19→21:21)
[2018-08-26] MEDS: SODIUM CHLORIDE 0.9% 1,000 ML IV SCH ×3 (08:01→21:23)
[2018-08-26] MEDS: predniSONE 5 MG TAB PO SCH (08:03)
[2018-08-26] MEDS: ALPRAZolam 0.25 MG TAB PO SCH ×2 (08:03→21:21)
[2018-08-26] MEDS: LISINOPRIL 10 MG TAB PO SCH (08:03)
[2018-08-26] MEDS: PARoxetine 10 MG TAB PO SCH (08:03)
[2018-08-26] MEDS: CARVEDILOL 12.5 MG TAB PO SCH ×2 (08:03→17:49)
[2018-08-26] MEDS: methylPREDNISolone SOD SUCCI 40 MG/ML 1 ML VIAL IV SCH ×2 (08:03→21:22)
[2018-08-26] MEDS: FAMOTIDINE 20 MG TAB PO SCH ×2 (08:03→21:21)
[2018-08-26] MEDS: FORMOTEROL FUMARATE 20 MCG/2 ML NEBU INHALATION SCH ×2 (08:05→19:32)
[2018-08-26] MEDS: BUDESONIDE 1 MG/2 ML NEBU INHALATION SCH ×2 (08:05→19:33)
[2018-08-26] MEDS: NEOMYCIN-BACITRACIN-POLY OINT 14 GM TUBE TOPICAL SCH (08:05)
[2018-08-26] MEDS: IPRATROPIUM-ALBUTEROL 3 ML NEB INHALATION SCH ×4 (08:05→19:32)
[2018-08-26 12:27] LABS: Iron Saturation 17.47 (12.00-45.00)
[2018-08-26 12:42] LABS: Glucose,Whole Blood 115 mg/dL (75-99)
--- NOTE | 2018-08-26 15:40 | P.PN ---
Subjective 68-year-old female admitted for COPD exacerbation dehydration, IV fluids. Patient has advanced non-small cell lung cancer stage IV receiving palliative radiation therapy to the chest for pain. Because of the high PDL-1 positivity, oncology is hopeful that patient will respond to immunotherapy and targeted therapy. Patient does have advanced COPD some treated as a part because of which the pulmonology believed that hospice is more appropriate palliative care and hospice services were consulted will have family meeting and further continuation of immunotherapy depends on the patient's decision to continue therapy. Patient although looks much better with hydration today 08/25/2018 patient is comparing of severe back pain. Is bit constipated as well. 08/26/2018 Patient had decided on hospice and will be discharged to a facility with hospice tomorrow we will order hospice evaluated the patient. Her pain is better controlled Constitutional: Denied any fatigue denied any fever. Cardio vascular: denied any chest pain, palpitations Gastrointestinal denied any nausea vomiting Pulmonary: Denied any shortness of breath cough Neurologic denied any new focal deficits All inpatient medications were reviewed and appropriate changes in these medications as dictated in the interval history and assessment and plan. Objective - Vital Signs Vital signs: Vital Signs Temp 98.4 F 08/26/18 13:21 Pulse 98 08/26/18 13:21 Resp 20 08/26/18 13:21 BP 165/73 08/26/18 13:21 Pulse Ox 95 08/26/18 13:21 Intake & Output 08/25/18 08/26/18 08/26/18 18:59 06:59 18:59 Intake Total 240 800 0 Balance 240 800 0 Weight 60.328 kg Intake: Intake, IV Titration 800 0 Amount Sodium Chloride 0.9% 1, 800 0 000 ml @ 100 mls/hr IV . Q10H [facility] Rx#:[id number] Oral 240 Other: Voiding Method Toilet Toilet Toilet # Voids 3 3 - Exam PHYSICAL EXAMINATION: GENERAL: The patient is alert and oriented x3, not in any acute distress. Thin built cachectic appears to be severely lethargic HEENT: Pupils are round and equally reacting to light. EOMI. No scleral icterus. No conjunctival pallor. Normocephalic, atraumatic. No pharyngeal erythema. No thyromegaly. CARDIOVASCULAR: S1 and S2 present. No murmurs, rubs, or gallops. PULMONARY: Chest is clear to auscultation, no wheezing or crackles. ABDOMEN: Soft, nontender, nondistended, normoactive bowel sounds. No palpable organomegaly. MUSCULOSKELETAL: No joint swelling or deformity. EXTREMITIES: No cyanosis, clubbing, or pedal edema. NEUROLOGICAL: Gross neurological examination did not reveal any focal deficits. SKIN: No rashes. - Labs CBC & Chem 7: 08/25/18 06:47 08/25/18 06:47 Labs: Abnormal Lab Results - Last 24 Hours (Table) 08/25/18 08/25/18 08/25/18 Range/Units 06:47 17:24 20:34 POC Glucose (mg/dL) 132 H 113 H (75-99) mg/dL Iron 47 L (50-170) ug/dL 08/26/18 Range/Units 12:40 POC Glucose (mg/dL) 115 H (75-99) mg/dL Iron (50-170) ug/dL Assessment and Plan Plan: -Severe lethargy generalized weakness tiredness secondary to cancer cachexia along with the dehydration from poor by mouth intake patient was started on IV fluids Lasix on hold. Supportive care physical therapy. . Patient has stage IV non-small cell lung cancer. Patient is being discharged to facility with hospice most probably tomorrow -Acute on chronic hypercapnic respiratory failure secondary to COPD exacerbation patient is presently at baseline improved with breathing treatments -Generalized weakness and deconditioning from her cancer itself -Pleuritic pain. Because of the lung mass on the right side, may not receive any more radiation therapy will be hospice. -Hyperlipidemia -Hypertension -Hypothyroidism -Degenerative joint disease. CODE STATUS: DO NOT RESUSCITATE
--- NOTE | 2018-08-26 16:07 | P.PN ---
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 lymphadenopathy. The patient was diagnosed having lung cancer recently by fine-needle aspirate. Subsequently the patient was referred to medical oncology and radiation oncology for further treatment. The patient was seen by Dr. Guillaume, and the patient was also seen by Dr. Kiesha Kern from radiation oncology. The patient was started on radiation therapy and is already received 4 sessions of radiation therapy. The patient has a poor performance status at baseline. The patient came into the hospital because of increased weakness, lethargy, dehydration and ultimately she was admitted to the hospital. Further discussions took place between this patient and oncology and pulmonary services. The patient expressed wishes not to receive any further treatment and hospice has been consulted. The patient had a meeting with hospice and further recommendations are to follow from that standpoint. She is doing well. No signs of any major respiratory difficulties for now. I had a lengthy discussion with her. She clearly understands with hospice. She does not want any treatment being at chemotherapy or radiation therapy. She also is not interested in immunotherapy . For now, she is resting comfortably in bed. Family is at the bedside. The patient is being considered for hospice. Later stage with discharge. No hemoptysis. No pleurisy. No chest pain. Her shortness of breath is improved. Objective - Vital Signs Vital signs: Vital Signs Temp 98.4 F 08/26/18 13:21 Pulse 98 08/26/18 13:21 Resp 20 08/26/18 13:21 BP 165/73 08/26/18 13:21 Pulse Ox 95 08/26/18 13:21 Intake & Output 08/25/18 08/26/18 08/26/18 18:59 06:59 18:59 Intake Total 240 800 0 Balance 240 800 0 Weight 60.328 kg Intake: Intake, IV Titration 800 0 Amount Sodium Chloride 0.9% 1, 800 0 000 ml @ 100 mls/hr IV . Q10H EARLINE Rx#:[id number] Oral 240 Other: Voiding Method Toilet Toilet Toilet # Voids 3 3 - Exam Gen. appearance she is calm comfortable likely distress. Head exam was generally normal. There was no scleral icterus or corneal arcus. Mucous membranes were moist. Neck was supple and without jugular venous distension, thyromegaly, or carotid bruits. Carotids were easily palpable bilaterally. There was no adenopathy. Lungs sounds are diminished bilaterally along with scattered rhonchi and scattered expiratory wheezes throughout the lung his bilaterally. Cardiac exam revealed the PMI to be normally situated and sized. The rhythm was regular and no extrasystoles were noted during several minutes of auscultation. The first and second heart sounds were normal and physiologic splitting of the second heart sound was noted. There were no murmurs, rubs, clicks, or gallops. Abdominal exam revealed normal bowel sounds. The abdomen was soft, non-tender, and without masses, organomegaly, or appreciable enlargement of the abdominal aorta. Examination of the extremities revealed easily palpable radial, femoral and pedal pulses. There was no cyanosis, clubbing or edema. Examination of the skin revealed no evidence of significant rashes, suspicious appearing nevi or other concerning lesions. Neurologic the patient is awake and alert and there is no focal neurological deficits. - Labs CBC & Chem 7: 08/25/18 06:47 08/25/18 06:47 Labs: Abnormal Lab Results - Last 24 Hours (Table) 08/25/18 08/25/18 08/25/18 Range/Units 06:47 17:24 20:34 POC Glucose (mg/dL) 132 H 113 H (75-99) mg/dL Iron 47 L (50-170) ug/dL 08/26/18 Range/Units 12:40 POC Glucose (mg/dL) 115 H (75-99) mg/dL Iron (50-170) ug/dL Assessment and Plan Plan: Assessment 1 COPD exacerbation, improving 2 squamous cell carcinoma of the lung, locally advanced, post 4 sessions of radiation therapy 3 acute hypoxic respiratory failure currently on oxygen at 2-3 L per minute nasal cannula 4 hypertension 5 hyperlipidemia 6 episodic visit 7 skin cancer 8 chronic anemia 9 degenerative arthritis 10 . Impaired Performance and functional status secondary to above-mentioned comorbidities. Plan The plan is to proceed with hospice care. The patient clearly understands that this will be essentially comfort care measures and there would not be any further treatment. She is not considering chemotherapy, radiation therapy, and immunotherapy. She understands appropriate prognosis. Outpatient medication of been ordered resume. She is on DuoNeb nebulized treatment [id number]. She is on fentanyl patch for pain control. We'll cut down the IV fluids to KVO. Advance her diet. We'll continue to follow on discharge the patient home once hospice arrangements are done. Answered all of her questions to her satisfaction.
[2018-08-26 17:20] LABS: Glucose,Whole Blood 136 mg/dL (75-99)
[2018-08-26 20:26] LABS: Glucose,Whole Blood 141 mg/dL (75-99)
[2018-08-27] MEDS: HYDROcodone/APAP 5-325MG 1 EACH TAB PO PRN ×3 (02:51→20:52)
[2018-08-27] MEDS: LEVOTHYROXINE 50 MCG TAB PO SCH (05:23)
[2018-08-27] MEDS: HYDROmorphone 1 MG/ML 1 ML SYRINGE IVP PRN ×2 (06:55→15:28)
[2018-08-27] MEDS: BUDESONIDE 1 MG/2 ML NEBU INHALATION SCH ×2 (07:11→20:31)
[2018-08-27] MEDS: FORMOTEROL FUMARATE 20 MCG/2 ML NEBU INHALATION SCH ×2 (07:11→20:31)
[2018-08-27] MEDS: IPRATROPIUM-ALBUTEROL 3 ML NEB INHALATION SCH ×4 (07:11→20:31)
[2018-08-27 07:27] LABS: Glucose,Whole Blood 141 mg/dL (75-99)
[2018-08-27] MEDS: INSULIN ASPART 100 UNIT/ML 1 ML 10 ML VIAL SQ SCH ×4 (09:08→20:50)
[2018-08-27] MEDS: predniSONE 5 MG TAB PO SCH (09:09)
[2018-08-27] MEDS: PARoxetine 10 MG TAB PO SCH (09:10)
[2018-08-27] MEDS: ALPRAZolam 0.25 MG TAB PO SCH ×2 (09:10→20:53)
[2018-08-27] MEDS: FAMOTIDINE 20 MG TAB PO SCH ×2 (09:11→20:52)
[2018-08-27] MEDS: CARVEDILOL 12.5 MG TAB PO SCH ×2 (09:28→17:32)
[2018-08-27] MEDS: methylPREDNISolone SOD SUCCI 40 MG/ML 1 ML VIAL IV SCH ×2 (09:28→20:53)
[2018-08-27] MEDS: LISINOPRIL 10 MG TAB PO SCH (09:28)
[2018-08-27] MEDS: NEOMYCIN-BACITRACIN-POLY OINT 14 GM TUBE TOPICAL SCH (09:29)
[2018-08-27] MEDS: SODIUM CHLORIDE 0.9% 1,000 ML IV SCH ×2 (09:29→17:24)
[2018-08-27 11:41] LABS: Glucose,Whole Blood 113 mg/dL (75-99)
--- NOTE | 2018-08-27 14:49 | P.DS ---
Providers Date of admission: 08/23/18 01:54 Attending physician: Gallo Tompkins Consults: 08/22/18 23:33 Consult Physician Stat Consulting Provider: Jackie Min Consult Reason/Comments: Lung cancer, shortness of breath, COPD Do you want consulting provider notified?: Yes Consult Physician Stat Consulting Provider: Kashif Camacho Consult Reason/Comments: Lung cancer, shortness of breath Do you want consulting provider notified?: Yes Primary care physician: Brock Hill DO Hospital Course: 68-year-old female admitted for COPD exacerbation dehydration, IV fluids. Patient has advanced non-small cell lung cancer stage IV receiving palliative radiation therapy to the chest for pain. Because of the high PDL-1 positivity, oncology is hopeful that patient will respond to immunotherapy and targeted therapy. Patient does have advanced COPD some treated as a part because of which the pulmonology believed that hospice is more appropriate palliative care and hospice services were consulted will have family meeting and further continuation of immunotherapy depends on the patient's decision to continue therapy. Patient although looks much better with hydration today 08/25/2018 patient is comparing of severe back pain. Is bit constipated as well. 08/26/2018 Patient had decided on hospice and will be discharged to a facility with hospice tomorrow we will order hospice evaluated the patient. Her pain is better controlled 08/27/2018 Patient is being discharged home with hospice PHYSICAL EXAMINATION: GENERAL: The patient is alert and oriented x3, not in any acute distress. Thin built cachectic HEENT: Pupils are round and equally reacting to light. EOMI. No scleral icterus. No conjunctival pallor. Normocephalic, atraumatic. No pharyngeal erythema. No thyromegaly. CARDIOVASCULAR: S1 and S2 present. No murmurs, rubs, or gallops. PULMONARY: Chest is clear to auscultation, no wheezing or crackles. ABDOMEN: Soft, nontender, nondistended, normoactive bowel sounds. No palpable organomegaly. MUSCULOSKELETAL: No joint swelling or deformity. EXTREMITIES: No cyanosis, clubbing, or pedal edema. NEUROLOGICAL: Gross neurological examination did not reveal any focal deficits. SKIN: No rashes. Assessment and Plan Plan: - Lung cancer being discharged as home hospice -Acute on chronic hypercapnic respiratory failure secondary to COPD exacerbation p -Generalized weakness and deconditioning from her cancer itself -Pleuritic pain. Because of the lung mass on the right side, may not receive any more radiation therapy will be hospice. -Hyperlipidemia -Hypertension -Hypothyroidism -Degenerative joint disease. CODE STATUS: DO NOT RESUSCITATE Patient Condition at Discharge: Good Plan - Discharge Summary New Discharge Prescriptions: Continue Budesonide/Formoterol Fumarate [Symbicort 160-4.5 Mcg Inhaler] 2 puff INHALATION RT-BID ALPRAZolam [Xanax] 0.25 mg PO BID Albuterol Inhaler [Ventolin Hfa Inhaler] 2 puff INHALATION RT-QID Carvedilol [Coreg] 12.5 mg PO BID #60 tablet PARoxetine HCL [Paxil] 10 mg PO DAILY #30 tab Ipratropium-Albuterol Nebulize [Duoneb 0.5 mg-3 mg/3 ml Soln] 3 ml INHALATION RT-QID #120 neb Furosemide [Lasix] 20 mg PO DAILY PRN PRN Reason: Edema Ranitidine HCl [Zantac] 150 mg PO BID #30 tab fentaNYL 12MCG/HR PATCH [Duragesic 12MCG/HR] 2 patch TRANSDERM Q72H HYDROcodone/APAP 5-325MG [[place] 5-325] 1 tab PO Q4HR PRN PRN Reason: Breakthrough Pain Discontinued Levothyroxine Sodium [Synthroid] 50 mcg PO DAILY Lisinopril [Prinivil] 10 mg PO DAILY #30 tab predniSONE 5 mg PO DAILY Discharge Medication List ALPRAZolam [Xanax] 0.25 mg PO BID 10/08/16 [History] Albuterol Inhaler [Ventolin Hfa Inhaler] 2 puff INHALATION RT-QID 10/08/16 [ History] Budesonide/Formoterol Fumarate [Symbicort 160-4.5 Mcg Inhaler] 2 puff INHALATION RT-BID 10/08/16 [History] Carvedilol [Coreg] 12.5 mg PO BID #60 tablet 10/11/16 [Rx] PARoxetine HCL [Paxil] 10 mg PO DAILY #30 tab 10/11/16 [Rx] Ipratropium-Albuterol Nebulize [Duoneb 0.5 mg-3 mg/3 ml Soln] 3 ml INHALATION RT -QID #120 neb 05/30/17 [Rx] Furosemide [Lasix] 20 mg PO DAILY PRN 06/17/18 [History] Ranitidine HCl [Zantac] 150 mg PO BID #30 tab 06/19/18 [Rx] HYDROcodone/APAP 5-325MG [[place] 5-325] 1 tab PO Q4HR PRN 08/22/18 [History] fentaNYL 12MCG/HR PATCH [Duragesic 12MCG/HR] 2 patch TRANSDERM Q72H 08/22/18 [ History] Follow up Appointment(s)/Referral(s): Kashif Camacho MD [STAFF PHYSICIAN] - 3 Weeks Brock Hill DO [Primary Care Provider] - 1-2 days Discharge Disposition: HOME WITH HOSPICE
[2018-08-27 17:22] LABS: Glucose,Whole Blood 144 mg/dL (75-99)
[2018-08-27 20:22] LABS: Glucose,Whole Blood 114 mg/dL (75-99)
[2018-08-28] MEDS: HYDROcodone/APAP 5-325MG 1 EACH TAB PO PRN ×2 (02:31→08:16)
[2018-08-28] MEDS: HYDROmorphone 1 MG/ML 1 ML SYRINGE IVP PRN ×2 (02:32→14:57)
[2018-08-28] MEDS: SODIUM CHLORIDE 0.9% 1,000 ML IV SCH ×2 (04:47→12:10)
[2018-08-28 05:06] VITALS: BP 150/72; RESP 17; TEMP 97.7
[2018-08-28] MEDS: LEVOTHYROXINE 50 MCG TAB PO SCH (06:14)
[2018-08-28 07:21] LABS: Glucose,Whole Blood 123 mg/dL (75-99)
[2018-08-28] MEDS: INSULIN ASPART 100 UNIT/ML 1 ML 10 ML VIAL SQ SCH ×2 (07:43→12:10)
[2018-08-28] MEDS: IPRATROPIUM-ALBUTEROL 3 ML NEB INHALATION SCH ×2 (07:44→11:08)
[2018-08-28] MEDS: FORMOTEROL FUMARATE 20 MCG/2 ML NEBU INHALATION SCH (07:44)
[2018-08-28] MEDS: BUDESONIDE 1 MG/2 ML NEBU INHALATION SCH (07:44)
[2018-08-28] MEDS: LISINOPRIL 10 MG TAB PO SCH (08:15)
[2018-08-28] MEDS: predniSONE 5 MG TAB PO SCH (08:15)
[2018-08-28] MEDS: CARVEDILOL 12.5 MG TAB PO SCH (08:15)
[2018-08-28] MEDS: FAMOTIDINE 20 MG TAB PO SCH (08:15)
[2018-08-28] MEDS: PARoxetine 10 MG TAB PO SCH (08:15)
[2018-08-28] MEDS: methylPREDNISolone SOD SUCCI 40 MG/ML 1 ML VIAL IV SCH (08:16)
[2018-08-28] MEDS: ALPRAZolam 0.25 MG TAB PO SCH (08:20)
[2018-08-28] MEDS: NEOMYCIN-BACITRACIN-POLY OINT 14 GM TUBE TOPICAL SCH (08:20)
[2018-08-28 11:10] LABS: Glucose,Whole Blood 126 mg/dL (75-99)
[2018-08-28 11:22] VITALS: PULSE 86
== END 2018-08-28 15:39 | disposition hospice, home (50) | DRG 190 ==
LOC: EC 16:02 → 3NMEDONC 08-23 01:54
PROVIDERS: ADMIT Hospitalist; ATTEND Hospitalist
DX: J44.1 Chronic obstructive pulmonary disease with (acute) exacerbation (principal); J96.21 Acute and chronic respiratory failure with hypoxia; J96.22 Acute and chronic respiratory failure with hypercapnia; C34.90 Malignant neoplasm of unspecified part of unspecified bronchus or lung; E87.1 Hypo-osmolality and hyponatremia; R64 Cachexia; Z51.5 Encounter for palliative care; Z66 Do not resuscitate; D63.8 Anemia in other chronic diseases classified elsewhere; D72.829 Elevated white blood cell count, unspecified; E03.9 Hypothyroidism, unspecified; E78.5 Hyperlipidemia, unspecified; E86.0 Dehydration; F32.9 Major depressive disorder, single episode, unspecified; F41.9 Anxiety disorder, unspecified; G89.3 Neoplasm related pain (acute) (chronic); I10 Essential (primary) hypertension; K59.00 Constipation, unspecified; M19.90 Unspecified osteoarthritis, unspecified site; T38.0X5A Adverse effect of glucocorticoids and synthetic analogues, initial encounter; M54.9 Dorsalgia, unspecified; R59.9 Enlarged lymph nodes, unspecified; Z79.51 Long term (current) use of inhaled steroids; Z79.890 Hormone replacement therapy; Z79.899 Other long term (current) drug therapy; Z87.891 Personal history of nicotine dependence; Z85.828 Personal history of other malignant neoplasm of skin; Z88.5 Allergy status to narcotic agent; Z90.49 Acquired absence of other specified parts of digestive tract; Z98.51 Tubal ligation status; Z82.49 Family history of ischemic heart disease and other diseases of the circulatory system
CPT/HCPCS: 36415; 71046; 71275; 80048; 80053; 82550; 82553; 82607; 82728; 82747; 83036; 83540; 83550; 84484; 85025; 85610; 85730; 86850; 86900; 86901; 93005; 94640; 94760; 96361; 96374; 96375; 96376; 99285